=== PATIENT | female | born 1925 | race Caucasian/White ===

== ENCOUNTER 2016-11-19 23:34 | Observation (INO) | payer OTHER ==
[2016-11-20 00:42] LABS: MCH 27.6 pg (25.7-33.7); MCHC 32.6 g/dl (32.0-36.0); MEAN CELL VOLUME 84.6 fl (80-96); MEAN PLT VOLUME 9.8 fl (7.5-11.1); PLATELET COUNT 325 K/MM3 (134-434)
[2016-11-20 01:49] LABS: ACETONE SERUM NEGATIVE (NEGATIVE)
[2016-11-20 01:51] LABS: PLATELET ESTIMATE ADEQUATE (NORMAL); TOTAL CELLS COUNTED 100
[2016-11-20 01:51] LABS: ALBUMIN 3.3 g/dl (3.4-5.0); ANION GAP 11 (8-16); BILIRUBIN,TOTAL 0.6 mg/dL (0.2-1.0); CALCIUM 9.5 mg/dL (8.5-10.1); CO2 25 mmol/L (21-32); CREATININE 1.2 mg/dL (0.55-1.02); GLUCOSE,RANDOM 128 mg/dL (74-106); SGOT/AST 16 U/L (15-37); SGPT/ALT 19 U/L (12-78); TOT PROT 6.5 g/dl (6.4-8.2)
[2016-11-20 01:53] LABS: ALK PHOS 83 U/L (45-117); CPK 45 IU/L (26-192); TROPONIN I < 0.02 ng/ml (0.00-0.05)
[2016-11-20 02:38] LABS: THYROID STIMULATING HORMONE 1.72 uIU/ml (0.358-3.74)
--- NOTE | 2016-11-20 04:24 | PDOC ---
History of Present Illness - General Chief Complaint: Blood Sugar Problem Stated Complaint: LOW BLOOD SUGAR Time Seen by Provider: 11/20/16 00:36 - History of Present Illness Initial Comments: 11/20/16 04:24 89 F with h/o CAD (Stent), DM, HTN, HLD presents to ER with hypoglycemia. Pt lives in [place] where she reportedly had a fingerstick of 32. Pt was given glucagon and had improvement of her sugar to 180. In ER, pt reports that she feels well. She denies F/C. Denies CP/SOB. Denies abdominal pain/N/V. Pt is on insulin but cannot recall her dosage or when she last received it. Past History - Past Medical History Allergies/Adverse Reactions: Allergies Allergy/AdvReac Type Severity Reaction Status Date / Time Sulfa (Sulfonamide Allergy Verified 04/03/15 22:35 Antibiotics) Home Medications: Ambulatory Orders Acetaminophen [Tylenol -] 1,000 mg PO Q12H 11/20/16 Amlodipine Besylate [Norvasc -] 10 mg PO DAILY 11/20/16 Aspirin [Aspirin EC] 81 mg PO DAILY 11/20/16 Cholecalciferol (Vitamin D3) [Vitamin D3] 50,000 cap PO MONTHLY 11/20/16 Clopidogrel Bisulfate [Plavix -] 75 mg PO DAILY 11/20/16 Cyanocobalamin (Vitamin B-12) [Cyanocobalamin Injection] 1,000 mcg IM MONTHLY Docusate Sodium [Colace -] 100 mg PO HS 11/20/16 Insulin (Novolog) [NovoLOG FLEXPEN] 4 units SQ DAILY 11/20/16 Insulin (Novolog) [Novolog Flexpen] 10 units SQ BIDAC 11/20/16 Insulin Glargine,Hum.rec.anlog [Lantus Solostar PEN (NF)] 28 units SQ Q12H 11/20 Lisinopril [Zestril] 40 mg PO DAILY 11/20/16 Metoprolol Tartrate 100 mg PO BID 11/20/16 Multivitamin [One Daily] 1 tablet PO DAILY 11/20/16 Pen Needle, Diabetic, Safety [Novofine Autocover] 1 each MC TID 11/20/16 Polyethylene Glycol 3350 [Miralax (For Daily Use) -] 17 gm PO DAILY 11/20/16 Polyvinyl Alcohol [Artificial Tears] 1 drop OD TID 11/20/16 Simvastatin [Zocor] 10 mg PO HS 11/20/16 Cardiac Disorders: Yes (CAD, stent) CHF: Yes Diabetes: Yes HTN: Yes Hypercholesterolemia: Yes Suicide Attempt (Hx): No - Surgical History Appendectomy: Yes Cardiac Surgery: Yes (cardiac stent) Orthopedic Surgery: Yes (Lt knee replacement) - Psycho/Social/Smoking Cessation Hx Anxiety: No Suicidal Ideation: No Smoking History: Unknown if ever smoked Have you smoked in the past 12 months: No Hx Alcohol Use: No Drug/Substance Use Hx: No Substance Use Type: None Hx Substance Use Treatment: No Review of Systems - Review of Systems Comments:: 11/20/16 04:28 "GENERAL/CONSTITUTIONAL: No fever or chills. No weakness. HEAD, EYES, EARS, NOSE AND THROAT: No change in vision. No ear pain or discharge. No sore throat. CARDIOVASCULAR: No chest pain or shortness of breath. RESPIRATORY: No cough, wheezing, or hemoptysis. GASTROINTESTINAL: No nausea, vomiting, diarrhea or constipation. GENITOURINARY: No dysuria, frequency, or change in urination. MUSCULOSKELETAL: No joint or muscle swelling or pain. No neck or back pain. SKIN: No rash NEUROLOGIC: No headache, vertigo, loss of consciousness, or change in strength/ sensation. ENDOCRINE: No increased thirst. No abnormal weight change. HEMATOLOGIC/LYMPHATIC: No anemia, easy bleeding, or history of blood clots. ALLERGIC/IMMUNOLOGIC: No hives or skin allergy. " *Physical Exam - Vital Signs Last Vital Signs Temp Pulse Resp BP Pulse Ox 97.8 F 40 L 18 120/50 100 11/20/16 03:35 11/20/16 03:35 11/20/16 03:35 11/20/16 03:35 11/20/16 03:35 - Physical Exam Comments: 11/20/16 04:28 "GENERAL: Awake, alert, in no acute distress HEAD: No signs of trauma EYES: PERRLA, EOMI, sclera anicteric, conjunctiva clear ENT: Auricles normal inspection, hearing grossly normal, nares patent, oropharynx clear without exudates. Moist mucosa NECK: Normal ROM, supple, no lymphadenopathy, JVD, or masses LUNGS: Breath sounds equal, clear to auscultation bilaterally. No wheezes, and no crackles HEART: Regular rate and rhythm, normal S1 and S2, no murmurs, rubs or gallops ABDOMEN: + LLQ tenderness with voluntary guarding, normoactive bowel sounds. No guarding, no rebound. No masses EXTREMITIES: Normal range of motion, no edema. No clubbing or cyanosis. No cords, erythema, or tenderness NEUROLOGICAL: Cranial nerves II through XII grossly intact. Normal speech SKIN: Warm, Dry, normal turgor, no rashes or lesions noted. " Heart Score/ECG Review - ECG Impressions Comment:: 11/20/16 04:29 Sinus bradycardia, rate 51. J point elevation in V2, no ST depressions, no TWIs , intervals wnl. ED Treatment Course - LABORATORY CBC & Chemistry Diagram: 11/20/16 00:30 11/20/16 01:08 - ADDITIONAL ORDERS Additional order review: Laboratory Results 11/20/16 11/20/16 11/20/16 03:27 01:08 01:08 INR PTT (Actin FS) Sodium Potassium Chloride Carbon Dioxide Anion Gap BUN Creatinine Creat Clearance w eGFR POC Glucometer [phone] Random Glucose Lactic Acid Calcium Magnesium 2.2 D Total Bilirubin AST ALT Alkaline Phosphatase Creatine Kinase Troponin I Total Protein Albumin Lipase TSH Acetone, Qual Blood Type O NEGATIVE Antibody Screen Negative Spec Expiration Date 11/20/16 11/20/16 11/20/16 01:08 01:08 00:30 INR Cancelled PTT (Actin FS) Cancelled Sodium 136 Potassium 4.4 Chloride 100 Carbon Dioxide 25 Anion Gap 11 BUN 28 H D Creatinine 1.2 H Creat Clearance w eGFR 42.40 POC Glucometer Random Glucose 128 H D Lactic Acid Calcium 9.5 Magnesium Total Bilirubin 0.6 D AST 16 D ALT 19 D Alkaline Phosphatase 83 D Creatine Kinase 45 Troponin I < 0.02 Total Protein 6.5 D Albumin 3.3 L D Lipase 77 TSH 1.72 Acetone, Qual Negative L Blood Type Cancelled Antibody Screen Cancelled Spec Expiration Date Cancelled 11/20/16 11/20/16 11/20/16 00:30 00:30 00:30 INR Cancelled PTT (Actin FS) Cancelled Sodium Cancelled Potassium Cancelled Chloride Cancelled Carbon Dioxide Cancelled Anion Gap Cancelled BUN Cancelled Creatinine Cancelled Creat Clearance w eGFR Cancelled POC Glucometer Random Glucose Cancelled Lactic Acid 1.3 Calcium Cancelled Magnesium Total Bilirubin Cancelled AST Cancelled ALT Cancelled Alkaline Phosphatase Cancelled Creatine Kinase Troponin I Total Protein Cancelled Albumin Cancelled Lipase Cancelled TSH Cancelled Acetone, Qual Cancelled Blood Type Antibody Screen Spec Expiration Date 11/20/16 11/19/16 00:30 23:52 INR PTT (Actin FS) Sodium Potassium Chloride Carbon Dioxide Anion Gap BUN Creatinine Creat Clearance w eGFR POC Glucometer [id number] Random Glucose Lactic Acid Calcium Magnesium Cancelled Total Bilirubin AST ALT Alkaline Phosphatase Creatine Kinase Cancelled Troponin I Cancelled Total Protein Albumin Lipase TSH Acetone, Qual Blood Type Antibody Screen Spec Expiration Date 11/20/16 11/20/16 11/19/16 03:27 00:30 23:52 RBC 5.04 D MCV 84.6 MCHC 32.6 RDW 14.0 MPV 9.8 Neutrophils % Y Lymphocytes % Y POC Glucometer [phone] - RADIOLOGY Radiology Studies Ordered: Category Date Time Status ABDOMEN & PELVIS CT WITH CONTR [CT] Stat CT Scan 11/20/16 00:48 Ordered CHEST X-RAY PORTABLE* [RAD] Stat Radiology 11/20/16 00:48 Ordered Medical Decision Making - Medical Decision Making 11/20/16 04:29 89 F with hypoglycemia in [place], now resolved. Low sugar may be 2/2 poor PO. Possible medication error, though pt lives in nursing facility. Also consider infectious process. Pt's exam notable for LLQ tenderness, concerning for acute intraabdominal process - diverticulitis vs colitis. Pt's vitals notable for bradycardia with normal BP. Possibly 2/2 beta blockade as pt is on metoprolol. Pt is mentating appropriately and maintaining BP so will defer treatment at this time. - Labs, UA, CXR - CTAP - atropine or glucagon PRN for bardycardia - Admit 11/20/16 06:08 CTAP without acute pathology. UA and CXR with no infectious processes Given abdominal pain and WBC 25, will send stool cultures to r/o C diff. Admit to obs. *DC/Admit/Observation/Transfer Diagnosis at time of Disposition: Abdominal pain - Discharge Dispostion Admit: Yes - Attestations Physician Attestion: 11/20/16 06:09 I, Dr. Toño Archuleta MD, attest that this document has been prepared under my direction and personally reviewed by me in its entirety. I further attest, that it accurately reflects all work, treatment, procedures and medical decision -making performed by me.
[2016-11-20 05:41] LABS: URINE APPEARANCE SLCLOUDY; URINE BILIRUBIN NEGATIVE (NEGATIVE); URINE BLOOD NEGATIVE (NEGATIVE); URINE COLOR YELLOW; URINE GLUCOSE (UA) NEGATIVE (NEGATIVE); URINE KETONE TRACE (NEGATIVE); URINE LEUK ESTERASE NEGATIVE (NEGATIVE); URINE NITRITE NEGATIVE (NEGATIVE); URINE UROBILINOGEN NEGATIVE mg/dL (0.2-1.0)
[2016-11-20 05:43] LABS: URINE PROTEIN 2+ (NEGATIVE)
[2016-11-20 05:46] LABS: URINE HYALINE CAST 9 /lpf; URINE MUCUS RARE; URINE RBC 2 /hpf (0-3); URINE WBC 3 /hpf (3-5)
--- NOTE | 2016-11-20 06:54 | HP ---
PCP: Gianni Nogueira CHIEF COMPLAINT: Hypoglycemia HISTORY OF PRESENT ILLNESS: The patient is an 89 year old woman who was found unresponsive with a fingerstick of 32 at [facility] [address] this evening. She was treated with dextrose with no improvement and so she was sent to the ER for evaluation and treatment. EMS administered Glucagon and her sugar improved to 180. She is unable to provide a history secondary to dementia. She denies pain. PAST MEDICAL HISTORY CAD Type 2 diabetes mellitus Hypertension Hyperlipidemia CKD Osteoarthritis Macular degeneration Dementia PAST SURGICAL HISTORY Coronary stent Left hip ORIF Left total knee replacement SOCIAL HISTORY Smoking: Denies Alcohol: Denies Drugs: Denies Recent Travel: No FAMILY HISTORY Unobtainable ALLERGIES Sulfa (Sulfonamide Antibiotics) Allergy (Verified 04/03/15 22:35) HOME MEDICATIONS 3 Medication Instructions Recorded Acetaminophen [Tylenol -] 1,000 mg PO Q12H 11/20/16 Amlodipine Besylate [Norvasc -] 10 mg PO DAILY 11/20/16 Aspirin [Aspirin EC] 81 mg PO DAILY 11/20/16 Cholecalciferol (Vitamin D3) 50,000 cap PO MONTHLY 11/20/16 [Vitamin D3] Clopidogrel Bisulfate [Plavix -] 75 mg PO DAILY 11/20/16 Cyanocobalamin (Vitamin B-12) 1,000 mcg IM MONTHLY 11/20/16 [Cyanocobalamin Injection] Docusate Sodium [Colace -] 100 mg PO HS 11/20/16 Insulin (Novolog) [NovoLOG FLEXPEN] 4 units SQ DAILY 11/20/16 Insulin (Novolog) [Novolog Flexpen] 10 units SQ BIDAC 11/20/16 Insulin Glargine,Hum.rec.anlog 28 units SQ Q12H 11/20/16 [Lantus Solostar PEN (NF)] Lisinopril [Zestril] 40 mg PO DAILY 11/20/16 Metoprolol Tartrate 100 mg PO BID 11/20/16 Multivitamin [One Daily] 1 tablet PO DAILY 11/20/16 Pen Needle, Diabetic, Safety 1 each MC TID 11/20/16 [Novofine Autocover] Polyethylene Glycol 3350 [Miralax 17 gm PO DAILY 11/20/16 (For Daily Use) -] Polyvinyl Alcohol [Artificial 1 drop OD TID 11/20/16 Tears] Simvastatin [Zocor] 10 mg PO HS 11/20/16 REVIEW OF SYSTEMS Unobtainable PHYSICAL EXAMINATION Vital Signs - 24 hr 11/19/16 11/20/16 11/20/16 23:44 00:33 03:35 Temperature 97.4 F L 97.4 F L 97.8 F Pulse Rate [ 51 L 42 L 40 L Apical] Respiratory 16 16 18 Rate Blood Pressure 111/62 123/56 120/50 [Right Arm] O2 Sat by Pulse 100 100 100 Oximetry (%) 11/20/16 05:23 Temperature 97.2 F L Pulse Rate [ 50 L Apical] Respiratory 12 Rate Blood Pressure 110/62 [Right Arm] O2 Sat by Pulse 98 Oximetry (%) GENERAL: Awake, alert, confused, in no acute distress. HEAD: Normal with no signs of trauma. EYES: Pupils equal, round and reactive to light, extraocular movements intact, sclerae anicteric, conjunctivae clear. EARS, NOSE, THROAT: Ears normal, nares patent, oropharynx clear without exudates. Moist mucous membranes. NECK: Normal range of motion, supple without lymphadenopathy, JVD, or masses. LUNGS: Breath sounds equal, clear to auscultation bilaterally. No wheezes, and no crackles. No accessory muscle use. HEART: Bradycardic, normal S1 and S2 without murmur, rub or gallop. ABDOMEN: Soft, non-tender, non-distended, normoactive bowel sounds, no guarding , no rebound, no masses. No hepatomegaly or splenomegaly. MUSCULOSKELETAL: Normal range of motion at all joints. No bony deformities or tenderness. No CVA tenderness. UPPER EXTREMITIES: 2+ pulses, warm, well-perfused. No cyanosis. No clubbing. No peripheral edema. LOWER EXTREMITIES: 2+ pulses, warm, well-perfused. No calf tenderness. No peripheral edema. NEUROLOGICAL: Confused, cooperative. Normal speech. Strength intact. Sensation intact. Gait not observed. SKIN: Warm, dry, intact. Laboratory Results - last 24 hr 11/19/16 11/20/16 11/20/16 23:52 00:30 00:30 WBC 25.0 H D RBC 5.04 D Hgb 13.9 D Hct 42.7 D MCV 84.6 MCH 27.6 MCHC 32.6 RDW 14.0 Plt Count 325 D MPV 9.8 Total Counted 100 Neutrophils % Y Neutrophils % (Manual) 88 H Band Neuts % (Manual) 2 Lymphocytes % Y Lymphocytes % (Manual) 9 Eosinophils % (Manual) 1 Platelet Estimate Adequate INR PTT (Actin FS) Sodium Potassium Chloride Carbon Dioxide Anion Gap BUN Creatinine Creat Clearance w eGFR POC Glucometer [phone] Random Glucose Lactic Acid Calcium Magnesium Cancelled Total Bilirubin AST ALT Alkaline Phosphatase Creatine Kinase Cancelled Troponin I Cancelled Total Protein Albumin Lipase TSH Urine Color Urine Appearance Urine pH Urine Protein Urine Glucose (UA) Urine Ketones Urine Blood Urine Nitrite Urine Bilirubin Urine Urobilinogen Ur Leukocyte Esterase Urine RBC Urine WBC Ur Epithelial Cells Hyaline Casts Urine Mucus Acetone, Qual Blood Type Antibody Screen Spec Expiration Date 11/20/16 11/20/16 11/20/16 00:30 00:30 00:30 WBC RBC Hgb Hct MCV MCH MCHC RDW Plt Count MPV Total Counted Neutrophils % Neutrophils % (Manual) Band Neuts % (Manual) Lymphocytes % Lymphocytes % (Manual) Eosinophils % (Manual) Platelet Estimate INR Cancelled PTT (Actin FS) Cancelled Sodium Cancelled Potassium Cancelled Chloride Cancelled Carbon Dioxide Cancelled Anion Gap Cancelled BUN Cancelled Creatinine Cancelled Creat Clearance w eGFR Cancelled POC Glucometer Random Glucose Cancelled Lactic Acid 1.3 Calcium Cancelled Magnesium Total Bilirubin Cancelled AST Cancelled ALT Cancelled Alkaline Phosphatase Cancelled Creatine Kinase Troponin I Total Protein Cancelled Albumin Cancelled Lipase Cancelled TSH Cancelled Urine Color Urine Appearance Urine pH Urine Protein Urine Glucose (UA) Urine Ketones Urine Blood Urine Nitrite Urine Bilirubin Urine Urobilinogen Ur Leukocyte Esterase Urine RBC Urine WBC Ur Epithelial Cells Hyaline Casts Urine Mucus Acetone, Qual Cancelled Blood Type Antibody Screen Spec Expiration Date 11/20/16 11/20/16 11/20/16 00:30 01:08 01:08 WBC RBC Hgb Hct MCV MCH MCHC RDW Plt Count MPV Total Counted Neutrophils % Neutrophils % (Manual) Band Neuts % (Manual) Lymphocytes % Lymphocytes % (Manual) Eosinophils % (Manual) Platelet Estimate INR Cancelled PTT (Actin FS) Cancelled Sodium 136 Potassium 4.4 Chloride 100 Carbon Dioxide 25 Anion Gap 11 BUN 28 H D Creatinine 1.2 H Creat Clearance w eGFR 42.40 POC Glucometer Random Glucose 128 H D Lactic Acid Calcium 9.5 Magnesium Total Bilirubin 0.6 D AST 16 D ALT 19 D Alkaline Phosphatase 83 D Creatine Kinase 45 Troponin I < 0.02 Total Protein 6.5 D Albumin 3.3 L D Lipase 77 TSH 1.72 Urine Color Urine Appearance Urine pH Urine Protein Urine Glucose (UA) Urine Ketones Urine Blood Urine Nitrite Urine Bilirubin Urine Urobilinogen Ur Leukocyte Esterase Urine RBC Urine WBC Ur Epithelial Cells Hyaline Casts Urine Mucus Acetone, Qual Negative L Blood Type Cancelled Antibody Screen Cancelled Spec Expiration Date Cancelled 11/20/16 11/20/16 11/20/16 01:08 01:08 03:27 WBC RBC Hgb Hct MCV MCH MCHC RDW Plt Count MPV Total Counted Neutrophils % Neutrophils % (Manual) Band Neuts % (Manual) Lymphocytes % Lymphocytes % (Manual) Eosinophils % (Manual) Platelet Estimate INR PTT (Actin FS) Sodium Potassium Chloride Carbon Dioxide Anion Gap BUN Creatinine Creat Clearance w eGFR POC Glucometer [phone] Random Glucose Lactic Acid Calcium Magnesium 2.2 D Total Bilirubin AST ALT Alkaline Phosphatase Creatine Kinase Troponin I Total Protein Albumin Lipase TSH Urine Color Urine Appearance Urine pH Urine Protein Urine Glucose (UA) Urine Ketones Urine Blood Urine Nitrite Urine Bilirubin Urine Urobilinogen Ur Leukocyte Esterase Urine RBC Urine WBC Ur Epithelial Cells Hyaline Casts Urine Mucus Acetone, Qual Blood Type O NEGATIVE Antibody Screen Negative Spec Expiration Date 11/20/16 05:13 WBC RBC Hgb Hct MCV MCH MCHC RDW Plt Count MPV Total Counted Neutrophils % Neutrophils % (Manual) Band Neuts % (Manual) Lymphocytes % Lymphocytes % (Manual) Eosinophils % (Manual) Platelet Estimate INR PTT (Actin FS) Sodium Potassium Chloride Carbon Dioxide Anion Gap BUN Creatinine Creat Clearance w eGFR POC Glucometer Random Glucose Lactic Acid Calcium Magnesium Total Bilirubin AST ALT Alkaline Phosphatase Creatine Kinase Troponin I Total Protein Albumin Lipase TSH Urine Color Yellow Urine Appearance Slcloudy Urine pH 5.0 Urine Protein 2+ H Urine Glucose (UA) Negative Urine Ketones Trace H Urine Blood Negative Urine Nitrite Negative Urine Bilirubin Negative Urine Urobilinogen Negative Ur Leukocyte Esterase Negative Urine RBC 2 Urine WBC 3 Ur Epithelial Cells Rare Hyaline Casts 9 Urine Mucus Rare Acetone, Qual Blood Type Antibody Screen Spec Expiration Date ASSESSMENT/PLAN: This is an 89 year old woman with a history of CAD, cardiac stent, type 2 DM, HTN, hyperlipidemia, CKD, OA, macular degeneration, dementia who was sent to the ER from [facility] after being found unresponsive with fingerstick 32. 1. Acute metabolic encephalopathy secondary to hypoglycemia - Improved with dextrose and Glucagon - Hold Lantus, Novolog - Monitor fingersticks 2. Stage 3 CKD - Stable 3. Sinus bradycardia - Appears to be asymptomatic - Hold Lopressor - Observe on telemetry 4. HTN - Continue Norvasc, Lisinopril - Hold Lopressor secondary to bradycardia 5. Hyperlipidemia - Continue Zocor 6. CAD, history of stent - Continue aspirin, Plavix, Zocor 7. Dementia 8. Leukocytosis - Chronic (25.0 today, has been 10.8-22.2 in past) - No evidence of infection 9. Type 2 DM - Hold insulin secondary to hypoglycemia - Monitor finersticks
[2016-11-20 09:32] LABS: BASOPHIL 0.4 % (0-2.0); EOSINOPHIL 0.5 % (0-4.5); MCH 27.3 pg (25.7-33.7); MCHC 32.1 g/dl (32.0-36.0); MEAN CELL VOLUME 85.1 fl (80-96); MEAN PLT VOLUME 9.5 fl (7.5-11.1); NEUTROPHILS 87.9 % (42.8-82.8); PLATELET COUNT 291 K/MM3 (134-434); RDW 14.3 % (11.6-15.6); WHITE BLOOD COUNT 20.8 K/mm3 (4.0-10.0)
--- NOTE | 2016-11-20 09:44 | EKG ---
Test Reason : Blood Pressure : / mmHG Vent. Rate : 051 BPM Atrial Rate : 051 BPM P-R Int : 166 ms QRS Dur : 086 ms QT Int : 520 ms P-R-T Axes : 037 -24 038 degrees QTc Int : 479 ms SINUS BRADYCARDIA MODERATE VOLTAGE CRITERIA FOR LVH, MAY BE NORMAL VARIANT CANNOT RULE OUT SEPTAL INFARCT , AGE UNDETERMINED POOR R WAVE PROGRESSION ABNORMAL ECG Confirmed by MD NILA, JUSTICE (2012) on 11/20/2016 9:44:04 AM Referred By: Confirmed By:JUSTICE DOTSON MD
[2016-11-20] MEDS ORDERED: LISINOPRIL 20 MG TABLET (FP) PO SCH (10:00)
[2016-11-20] MEDS: ACETAMINOPHEN 500 MG TABLET (FP) PO SCH ×2 (10:14→21:30)
[2016-11-20 10:15] LABS: ALBUMIN 3.6 g/dl (3.4-5.0); ALK PHOS 93 U/L (45-117); ANION GAP 13 (8-16); BILIRUBIN,TOTAL 0.8 mg/dL (0.2-1.0); CALCIUM 9.9 mg/dL (8.5-10.1); CO2 24 mmol/L (21-32); CREATININE 1.1 mg/dL (0.55-1.02); GLUCOSE,RANDOM 202 mg/dL (74-106); SGOT/AST 18 U/L (15-37); SGPT/ALT 22 U/L (12-78); TOT PROT 6.9 g/dl (6.4-8.2)
[2016-11-20] MEDS: CLOPIDOGREL BISULFATE 75 MG TABLET (FP) PO SCH (10:15)
[2016-11-20] MEDS: MULTIVITAMINS (DAILY MVI) TABLET (FP) PO SCH (10:15)
[2016-11-20] MEDS: amLODIPine BESYLATE 10 MG TABLET (FP) PO SCH (10:15)
[2016-11-20] MEDS: ASPIRIN COATED 81 MG TABLET.EC PO SCH (10:15)
[2016-11-20] MEDS: POLYETHYLENE GLYCOL 3350 119 GM BTL PO SCH (10:16)
--- NOTE | 2016-11-20 11:13 | PN ---
Physical Exam: SUBJECTIVE: Patient seen and examined at the bedside. "I still feel weak, but feel better". Denies dizziness, chest pain or shortness of breath. OBJECTIVE: Called nursing supervisr @ [facility] for current MOLST for, currently only a 2015 DNR non hospital form in chart: fax no. 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 EYES: PERRL, extraocular movements intact, sclera anicteric, conjunctiva clear. No ptosis. ENT: Ears normal, nares patent, oropharynx clear without exudates, moist mucous membranes. NECK: Trachea midline, full range of motion, supple. LUNGS: Breath sounds equal, clear to auscultation bilaterally, no wheezes, no crackles, no accessory muscle use. HEART: EKG sinus cha, NSR 80s on cardiac monito ABDOMEN: Soft, nontender, nondistended, normoactive bowel sounds, no guarding, no rebound, no hepatosplenomegaly, no masses. EXTREMITIES: no edema. NEUROLOGICAL: Normal speech, gait not observed. PSYCH: Normal mood, normal affect. SKIN: Warm, dry, normal turgor, no rashes or lesions noted Laboratory Results - last 24 hr 11/20/16 11/20/16 11/20/16 08:50 08:50 08:50 WBC 20.8 H RBC 5.18 Hgb 14.2 Hct 44.1 MCV 85.1 MCH 27.3 MCHC 32.1 RDW 14.3 Plt Count 291 MPV 9.5 Neutrophils % 87.9 H Lymphocytes % 5.8 L D Monocytes % 5.4 Eosinophils % 0.5 Basophils % 0.4 Sodium 134 L Potassium 5.9 H D Cancelled Chloride 97 L Carbon Dioxide 24 Anion Gap 13 BUN 29 H Creatinine 1.1 H Creat Clearance w eGFR 46.88 Random Glucose 202 H D Calcium 9.9 Total Bilirubin 0.8 D AST 18 ALT 22 Alkaline Phosphatase 93 Total Protein 6.9 Albumin 3.6 Active Medications Generic Name Dose Route Start Last Admin Trade Name Dhiraj PRN Reason Stop Dose Admin Acetaminophen 1,000 mg 11/20/16 09:00 11/20/16 10:14 Tylenol - PO 1,000 mg Q12H SILVA Administration Amlodipine Besylate 10 mg 11/20/16 10:00 11/20/16 10:15 Norvasc - PO 10 mg DAILY SILVA Administration Artificial Tears 1 drop 11/20/16 14:00 Artificial Tears OD TID SILVA Aspirin 81 mg 11/20/16 10:00 11/20/16 10:15 Ecotrin - PO 81 mg DAILY SILVA Administration Atorvastatin Calcium 10 mg 11/20/16 22:00 Lipitor - PO HS SILVA Clopidogrel Bisulfate 75 mg 11/20/16 10:00 11/20/16 10:15 Plavix - PO 75 mg DAILY SILVA Administration Docusate Sodium 100 mg 11/20/16 22:00 Colace - PO HS SILVA Insulin Aspart 1 vial 11/20/16 16:30 Novolog Vial Sliding Scale - SQ ACHS SILVA Protocol Lisinopril 40 mg 11/20/16 10:00 11/20/16 10:15 Prinivil PO 40 mg DAILY SILVA Administration Multivitamins/Minerals/Vitamin C 1 tab 11/20/16 10:00 11/20/16 10:15 Tab-A-Vit - PO 1 tab DAILY SILVA Administration Polyethylene Glycol 17 gm 11/20/16 10:00 11/20/16 10:16 Miralax (For Daily Use) - PO Not Given DAILY SILVA ASSESSMENT/PLAN: 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 She presented to the ED on 11/20/2016 after reportedly being bound unresponsive with a BGM of 32 at [facility]. Patient was given Glucagon and had improvement of her sugar to 180. On exam, patient reports that she still feels weak but overall better. She denies dizziness, nausea, vomiting, chest pain or abdominal pain. Neuro: Metabolic encephalopathy - improving A/P: AMS likely secondary to blood sugars of 37 at residential Blood sugars improved with dextrose and glucagon BGMs are now elevated, Started on Novolog sliding scale, will start Levemir at 10 units and monitor Monitor BGMs Electrolyte Imbalance: Also noted to have hyponatremia, will give gentle hydration of 1 liters of saline @50cc/hr Hyperkalemia @ 5.9, will repeat K levels to confirm Hematology: Leukocytosis - chronic A/P:Normal lactic acid, no signs of infection, afebrile Cardiology: Hypertension A/P: On Norvasc and Lisinopril Holding Lopressor due to bradycardia on admission Plan to resume Metoprolol in a.m. Repeat EKG Bradycardia on admission, now in NSR in 70s A/P: Monitor on tele Repeat EKG Hyperlipidemia A/P: continue home dose of Lipitor CAD A/P: on ASA 81mg daily F.E.N. Fluids: Normal saline @ 50cc x 1 bag Electrolyges: Hyperk, repeat K levels Nutrition: diabetic diet Prophylaxis: SCDs, Physical therapy Disposition. OBS. Has DNR non hospital form in chart from 2014. [facility] faxed over old DNR paper work dated 2012, no MOLST on file. Will confirm code status tomorrow with HCP at [facility] ([facility], [place]). Visit type - Emergency Visit Emergency Visit: Yes ED Registration Date: 11/20/16 Care time: The patient presented to the Emergency Department on the above date and was hospitalized for further evaluation of their emergent condition. - New Patient This patient is new to me today: Yes Date on this admission: 11/20/16 - Critical Care Critical Care patient: No - Discharge Referral Referred to [facility] Med [facility] No
[2016-11-20 11:50] VITALS: BMI 29.8
[2016-11-20] MEDS: ARTIFICIAL TEARS (POLYVINYL ALCOHOL 1.4%) OPTH DROPS OD SCH ×2 (14:06→22:01)
[2016-11-20] MEDS ORDERED: SODIUM CHLORIDE 1,000 ML IV SCH (16:00)
[2016-11-20] MEDS ORDERED: INSULIN SLIDING SCALE (NOVOLOG) 1 VIAL SQ SCH (16:30)
[2016-11-20] MEDS ORDERED: INSULIN (NOVOLOG) ASPART 100 UNITS/ML 10ML VIAL SQ ONE (16:31)
[2016-11-20] MEDS ORDERED: SODIUM POLYSTYRENE SULFONATE 15 GM/60 ML BOTTLE PO ONE (17:12)
[2016-11-20] MEDS ORDERED: ATORVASTATIN CA 10 MG TABLET (FP) PO SCH (22:00)
[2016-11-20] MEDS ORDERED: INSULIN DETEMIR 100 UNITS/ML MDV SQ SCH ×2 (22:00)
[2016-11-20] MEDS ORDERED: DOCUSATE SODIUM 100 MG CAPSULE (FP) PO SCH (22:00)
[2016-11-20] MEDS: INSULIN SLIDING SCALE (NOVOLOG) 1 VIAL SQ SCH (22:11)
[2016-11-21] MEDS: ARTIFICIAL TEARS (POLYVINYL ALCOHOL 1.4%) OPTH DROPS OD SCH (06:14)
[2016-11-21] MEDS: INSULIN SLIDING SCALE (NOVOLOG) 1 VIAL SQ SCH ×2 (06:15→11:40)
[2016-11-21 06:32] VITALS: BP 142/58
[2016-11-21 07:07] LABS: BASOPHIL 0.5 % (0-2.0); EOSINOPHIL 2.9 % (0-4.5); MCH 27.6 pg (25.7-33.7); MCHC 32.3 g/dl (32.0-36.0); MEAN CELL VOLUME 85.4 fl (80-96); MEAN PLT VOLUME 9.9 fl (7.5-11.1); NEUTROPHILS 68.3 % (42.8-82.8); PLATELET COUNT 242 K/MM3 (134-434); RDW 14.2 % (11.6-15.6); WHITE BLOOD COUNT 11.7 K/mm3 (4.0-10.0)
[2016-11-21 07:40] LABS: ANION GAP 11 (8-16); CO2 24 mmol/L (21-32); CREATININE 1.3 mg/dL (0.55-1.02); GLUCOSE,RANDOM 131 mg/dL (74-106)
--- NOTE | 2016-11-21 07:45 | PN ---
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 EYES: PERRL, extraocular movements intact, sclera anicteric, conjunctiva clear. No ptosis. ENT: Ears normal, nares patent, oropharynx clear without exudates, moist mucous membranes. NECK: Trachea midline, full range of motion, supple. LUNGS: Breath sounds equal, clear to auscultation bilaterally, no wheezes, no crackles, no accessory muscle use. HEART: NSR 80s on cardiac monito ABDOMEN: Soft, nontender, nondistended, normoactive bowel sounds, no guarding, no rebound, no hepatosplenomegaly, no masses. EXTREMITIES: no edema. NEUROLOGICAL: Normal speech, gait not observed. PSYCH: Normal mood, normal affect. SKIN: Warm, dry, normal turgor, no rashes or lesions noted Laboratory Results - last 24 hr 11/20/16 11/20/16 11/20/16 08:50 08:50 08:50 WBC 20.8 H RBC 5.18 Hgb 14.2 Hct 44.1 MCV 85.1 MCH 27.3 MCHC 32.1 RDW 14.3 Plt Count 291 MPV 9.5 Neutrophils % 87.9 H Lymphocytes % 5.8 L D Monocytes % 5.4 Eosinophils % 0.5 Basophils % 0.4 Sodium 134 L Potassium 5.9 H D Cancelled Chloride 97 L Carbon Dioxide 24 Anion Gap 13 BUN 29 H Creatinine 1.1 H Creat Clearance w eGFR 46.88 POC Glucometer Random Glucose 202 H D Calcium 9.9 Total Bilirubin 0.8 D AST 18 ALT 22 Alkaline Phosphatase 93 Total Protein 6.9 Albumin 3.6 11/20/16 11/20/16 11/20/16 12:20 16:10 20:10 WBC RBC Hgb Hct MCV MCH MCHC RDW Plt Count MPV Neutrophils % Lymphocytes % Monocytes % Eosinophils % Basophils % Sodium Potassium 5.6 H 4.6 Chloride Carbon Dioxide Anion Gap BUN Creatinine Creat Clearance w eGFR POC Glucometer 342 Random Glucose Calcium Total Bilirubin AST ALT Alkaline Phosphatase Total Protein Albumin 11/20/16 11/21/16 11/21/16 22:05 05:31 05:35 WBC 11.7 H D RBC 4.32 Hgb 11.9 D Hct 36.8 D MCV 85.4 MCH 27.6 MCHC 32.3 RDW 14.2 Plt Count 242 MPV 9.9 Neutrophils % 68.3 D Lymphocytes % 16.9 D Monocytes % 11.4 H D Eosinophils % 2.9 D Basophils % 0.5 Sodium Potassium Chloride Carbon Dioxide Anion Gap BUN Creatinine Creat Clearance w eGFR POC Glucometer 154 201 Random Glucose Calcium Total Bilirubin AST ALT Alkaline Phosphatase Total Protein Albumin 11/21/16 05:35 WBC RBC Hgb Hct MCV MCH MCHC RDW Plt Count MPV Neutrophils % Lymphocytes % Monocytes % Eosinophils % Basophils % Sodium 136 Potassium 4.2 Chloride 101 Carbon Dioxide 24 Anion Gap 11 BUN 36 H D Creatinine 1.3 H Creat Clearance w eGFR POC Glucometer Random Glucose 131 H D Calcium Total Bilirubin AST ALT Alkaline Phosphatase Total Protein Albumin Active Medications Generic Name Dose Route Start Last Admin Trade Name Davidq PRN Reason Stop Dose Admin Acetaminophen 1,000 mg 11/20/16 09:00 11/20/16 21:30 Tylenol - PO 1,000 mg Q12H SILVA Administration Amlodipine Besylate 10 mg 11/20/16 10:00 11/20/16 10:15 Norvasc - PO 10 mg DAILY SILVA Administration Artificial Tears 1 drop 11/20/16 14:00 11/21/16 06:14 Artificial Tears OD 1 drop TID SILVA Administration Aspirin 81 mg 11/20/16 10:00 11/20/16 10:15 Ecotrin - PO 81 mg DAILY SILVA Administration Clopidogrel Bisulfate 75 mg 11/20/16 10:00 11/20/16 10:15 Plavix - PO 75 mg DAILY SILVA Administration Docusate Sodium 100 mg 11/20/16 22:00 11/20/16 22:02 Colace - PO 100 mg HS SILVA Administration Sodium Chloride 1,000 mls @ 50 mls/hr 11/20/16 16:00 11/20/16 16:35 Normal Saline - IV 11/21/16 15:51 50 mls/hr ASDIR SILVA Administration Insulin Aspart 1 vial 11/20/16 16:34 11/21/16 06:15 Novolog Vial Sliding Scale - SQ 6 units ACHS SILVA Administration Protocol Insulin Detemir 15 units 11/20/16 22:00 11/20/16 22:19 Levemir Vial SQ 15 units HS SILVA Administration Multivitamins/Minerals/Vitamin C 1 tab 11/20/16 10:00 11/20/16 10:15 Tab-A-Vit - PO 1 tab DAILY SILVA Administration Non-Formulary Medication 100 mg 11/21/16 10:00 Metoprolol Tartrate [Metoprolol Tartrate] PO BID SILVA Polyethylene Glycol 17 gm 11/20/16 10:00 11/20/16 10:16 Miralax (For Daily Use) - PO Not Given DAILY SILVA ASSESSMENT/PLAN: 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 She presented to the ED on 11/20/2016 after reportedly being bound unresponsive with a BGM of 32 at [facility]. Patient was given Glucagon and had improvement of her sugar to 180. On exam, patient reports that she still feels weak but overall better. She denies dizziness, nausea, vomiting, chest pain or abdominal pain. Neuro: Metabolic encephalopathy - resolved A/P: AMS likely secondary to blood sugars of 37 at longterm Blood sugars improved with dextrose and glucagon Started on Novolog sliding scale as noted above, Levemir at 15 units and monitor Monitor BGMs Endocrine: Diabetes - chronic A/P: Novolog sliding scale, Levemir 15 units at HS Titrate Levemir Electrolyte Imbalance: hypokalemia - resolved Hematology: Leukocytosis - chronic A/P:Normal lactic acid, no signs of infection, afebrile Cardiology: Hypertension - chronic A/P: On Norvasc, metoprolol and Lisinopril continue Metoprolol and Norvasc, hold Lisinopril secondary to GABE NSR in 70s and 80s Bradycardia on admission, now in NSR in 70s A/P: monitor at [facility] Hyperlipidemia - chronic A/P: On Lipitor, hold until creatinine is at 1.0 (her baseline) CAD - chronic A/P: on ASA 81mg daily Disposition. Discharge back to [facility]. Visit type - Emergency Visit Emergency Visit: Yes ED Registration Date: 11/20/16 Care time: The patient presented to the Emergency Department on the above date and was hospitalized for further evaluation of their emergent condition. - New Patient This patient is new to me today: No - Critical Care Critical Care patient: No - Discharge Referral Referred to [facility] No
[2016-11-21 09:14] LABS: CALCIUM 8.3 mg/dL (8.5-10.1)
--- NOTE | 2016-11-21 09:27 | DS ---
Physical Exam: SUBJECTIVE: Patient seen and examined OBJECTIVE: Creatinine 1.3, hold lisinopril and statin Resume Lisinopril and Statin once creatinine is 1.0 NSR on cardiac technologist Restart Metoprolol 100 BID, monitor BP Levemir 15units @ bedtime, adjust slowly based on glucs Sliding scale adjusted for tighter control as follows: Blood sugar Novolog dose 101-150 0 units 151-200 4 units 201-250 6 units 251-300 8 units 301-350 10 units 351-400 12 units >400 14 units Levemir 15 units @ HS, slowly titrate Vital Signs Period Temp Pulse Resp BP Sys/Araiza Pulse Ox Last 24 Hr 97.8 F-98.8 F 63-79 18-18 131-159/54-90 98-100 PHYSICAL EXAM GENERAL: The patient is awake, alert, and fully oriented, in no acute distress - has history of dementia HEAD: Normal with no signs of trauma. EYES: PERRL, extraocular movements intact, sclera anicteric, conjunctiva clear. No ptosis. ENT: Ears normal, nares patent, oropharynx clear without exudates, moist mucous membranes. NECK: Trachea midline, full range of motion, supple. LUNGS: Breath sounds equal, clear to auscultation bilaterally, no wheezes, no crackles, no accessory muscle use. HEART: EKG sinus cha, NSR 80s on cardiac monito ABDOMEN: Soft, nontender, nondistended, normoactive bowel sounds, no guarding, no rebound, no hepatosplenomegaly, no masses. EXTREMITIES: no edema. NEUROLOGICAL: Normal speech, gait not observed. PSYCH: Normal mood, normal affect. SKIN: Warm, dry, normal turgor, no rashes or lesions noted LABS Laboratory Results - last 24 hr 11/20/16 11/20/16 11/20/16 08:50 08:50 08:50 WBC 20.8 H RBC 5.18 Hgb 14.2 Hct 44.1 MCV 85.1 MCH 27.3 MCHC 32.1 RDW 14.3 Plt Count 291 MPV 9.5 Neutrophils % 87.9 H Lymphocytes % 5.8 L D Monocytes % 5.4 Eosinophils % 0.5 Basophils % 0.4 Sodium 134 L Potassium 5.9 H D Cancelled Chloride 97 L Carbon Dioxide 24 Anion Gap 13 BUN 29 H Creatinine 1.1 H Creat Clearance w eGFR 46.88 POC Glucometer Random Glucose 202 H D Calcium 9.9 Total Bilirubin 0.8 D AST 18 ALT 22 Alkaline Phosphatase 93 Total Protein 6.9 Albumin 3.6 11/20/16 11/20/16 11/20/16 12:20 16:10 16:20 WBC RBC Hgb Hct MCV MCH MCHC RDW Plt Count MPV Neutrophils % Lymphocytes % Monocytes % Eosinophils % Basophils % Sodium Potassium 5.6 H Chloride Carbon Dioxide Anion Gap BUN Creatinine Creat Clearance w eGFR POC Glucometer 342 447 Random Glucose Calcium Total Bilirubin AST ALT Alkaline Phosphatase Total Protein Albumin 11/20/16 11/20/16 11/21/16 20:10 22:05 05:31 WBC RBC Hgb Hct MCV MCH MCHC RDW Plt Count MPV Neutrophils % Lymphocytes % Monocytes % Eosinophils % Basophils % Sodium Potassium 4.6 Chloride Carbon Dioxide Anion Gap BUN Creatinine Creat Clearance w eGFR POC Glucometer 154 201 Random Glucose Calcium Total Bilirubin AST ALT Alkaline Phosphatase Total Protein Albumin 11/21/16 11/21/16 05:35 05:35 WBC 11.7 H D RBC 4.32 Hgb 11.9 D Hct 36.8 D MCV 85.4 MCH 27.6 MCHC 32.3 RDW 14.2 Plt Count 242 MPV 9.9 Neutrophils % 68.3 D Lymphocytes % 16.9 D Monocytes % 11.4 H D Eosinophils % 2.9 D Basophils % 0.5 Sodium 136 Potassium 4.2 Chloride 101 Carbon Dioxide 24 Anion Gap 11 BUN 36 H D Creatinine 1.3 H Creat Clearance w eGFR POC Glucometer Random Glucose 131 H D Calcium 8.3 L Total Bilirubin AST ALT Alkaline Phosphatase Total Protein Albumin HOSPITAL COURSE: Date of Admission:11/20/16 Date of Discharge: 11/21/16 ASSESSMENT/PLAN: 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 She presented to the ED on 11/20/2016 after reportedly being bound unresponsive with a BGM of 32 at [facility]. Patient was given Glucagon and had improvement of her sugar to 180. On exam, patient reports that she still feels weak but overall better. She denies dizziness, nausea, vomiting, chest pain or abdominal pain. Neuro: Metabolic encephalopathy - resolved A/P: AMS likely secondary to blood sugars of 37 at [facility] Blood sugars improved with dextrose and glucagon Started on Novolog sliding scale as noted above, Levemir at 15 units and monitor Monitor BGMs Endocrine: Diabetes - chronic A/P: Novolog sliding scale, Levemir 15 units at HS Titrate Levemir Electrolyte Imbalance: hypokalemia - resolved Hematology: Leukocytosis - chronic A/P:Normal lactic acid, no signs of infection, afebrile Cardiology: Hypertension - chronic A/P: On Norvasc, metoprolol and Lisinopril continue Metoprolol and Norvasc, hold Lisinopril secondary to GABE NSR in 70s and 80s Bradycardia on admission, now in NSR in 70s A/P: monitor at [place] Hyperlipidemia - chronic A/P: On Lipitor, hold until creatinine is at 1.0 (her baseline) CAD - chronic A/P: on ASA 81mg daily Minutes to complete discharge: 60 Discharge Summary Reason For Visit: ABDOMINAL PAIN Current Active Problems Abdominal pain (Acute) Condition: Improved - Instructions Diet, Activity, Other Instructions: Gurjit/Sister Anita: Please continue medications as ordered. Repeat lab work within 3 days to monitor Bun/Creatinine. Creatinine 1.3 today, hold lisinopril and statin Resume Lisinopril and Statin once creatinine is 1.0 Restart Metoprolol 100 BID, monitor BP Levemir 15units @ bedtime, adjust slowly based on glucs Sliding scale adjusted for tighter control as follows: Blood sugar Novolog dose 101-150 0 units 151-200 4 units 201-250 6 units 251-300 8 units 301-350 10 units 351-400 12 units >400 14 units Levemir 15 units @ HS, slowly titrate [facility] [phone] Disposition: [facility] - Home Medications Comprehensive Discharge Medication List: Ambulatory Orders Acetaminophen [Tylenol -] 1,000 mg PO Q12H 11/20/16 Amlodipine Besylate [Norvasc -] 10 mg PO DAILY 11/20/16 Aspirin [Aspirin EC] 81 mg PO DAILY 11/20/16 Cholecalciferol (Vitamin D3) [Vitamin D3] 50,000 cap PO MONTHLY 11/20/16 Clopidogrel Bisulfate [Plavix -] 75 mg PO DAILY 11/20/16 Cyanocobalamin (Vitamin B-12) [Cyanocobalamin Injection] 1,000 mcg IM MONTHLY Docusate Sodium [Colace -] 100 mg PO HS 11/20/16 Insulin (Novolog) [NovoLOG FLEXPEN] 4 units SQ DAILY 11/20/16 Insulin (Novolog) [Novolog Flexpen] 10 units SQ BIDAC 11/20/16 Insulin Glargine,Hum.rec.anlog [Lantus Solostar PEN (NF)] 28 units SQ Q12H 11/20 Lisinopril [Zestril] 40 mg PO DAILY 11/20/16 Metoprolol Tartrate 100 mg PO BID 11/20/16 Multivitamin [One Daily] 1 tablet PO DAILY 11/20/16 Pen Needle, Diabetic, Safety [Novofine Autocover] 1 each MC TID 11/20/16 Polyethylene Glycol 3350 [Miralax (For Daily Use) -] 17 gm PO DAILY 11/20/16 Polyvinyl Alcohol [Artificial Tears] 1 drop OD TID 11/20/16 Simvastatin [Zocor] 10 mg PO HS 11/20/16 This patient is new to me today: No Emergency Visit: Yes ED Registration Date: 11/20/16 Care time: The patient presented to the Emergency Department on the above date and was hospitalized for further evaluation of their emergent condition. Critical Care patient: No - Discharge Referral Referred to [facility] No
[2016-11-21] MEDS ORDERED: PT OWN MED DRAWER 7, Y5N ONE (09:33)
[2016-11-21] MEDS: MULTIVITAMINS (DAILY MVI) TABLET (FP) PO SCH (09:36)
[2016-11-21] MEDS: ACETAMINOPHEN 500 MG TABLET (FP) PO SCH (09:36)
[2016-11-21] MEDS: CLOPIDOGREL BISULFATE 75 MG TABLET (FP) PO SCH (09:36)
[2016-11-21] MEDS: amLODIPine BESYLATE 10 MG TABLET (FP) PO SCH (09:36)
[2016-11-21] MEDS: ASPIRIN COATED 81 MG TABLET.EC PO SCH (09:37)
[2016-11-21] MEDS: POLYETHYLENE GLYCOL 3350 119 GM BTL PO SCH ×2 (09:37→09:45)
[2016-11-21 10:00] VITALS: PULSE 69; TEMP 98.9
[2016-11-21] MEDS ORDERED: METOPROLOL TARTRATE 50 MG TABLET (FP) PO SCH (10:00)
== END 2016-11-21 13:14 ==
LOC: JER 23:34 → JERBED 11-20 06:10 → J4W 11-20 08:15
PROVIDERS: ADMIT Internal Medicine; ATTEND Nurse Practitioner Family
PROC: 3E0337Z Introduction of Electrolytic and Water Balance Substance into Peripheral Vein, Percutaneous Approach (ICD-10-PCS; principal; 2016-11-20)
PROC: 3E013VG Introduction of Insulin into Subcutaneous Tissue, Percutaneous Approach (ICD-10-PCS; 2016-11-20)
DX: E11.649 Type 2 diabetes mellitus with hypoglycemia without coma (principal); G93.41 Metabolic encephalopathy; Z79.4 Long term (current) use of insulin; I12.9 Hypertensive chronic kidney disease with stage 1 through stage 4 chronic kidney disease, or unspecified chronic kidney disease; R10.9 Unspecified abdominal pain; N18.3 Chronic kidney disease, stage 3 (moderate); R00.1 Bradycardia, unspecified; I25.10 Atherosclerotic heart disease of native coronary artery without angina pectoris; E78.5 Hyperlipidemia, unspecified; F03.90 Unspecified dementia, unspecified severity, without behavioral disturbance, psychotic disturbance, mood disturbance, and anxiety; D72.829 Elevated white blood cell count, unspecified
CPT/HCPCS: 36415; 71010-TC; 74177-TC; 80048; 80053; 81003; 81015; 82009; 83605; 83690; 83735; 84132; 84443; 84484; 85025; 86850; 86900; 86901; 87086; 93005; 93010; 97116-GP; 97161-GP; 99285-25; G0378

== ENCOUNTER 2017-06-13 13:38 | Inpatient (IN) | payer OTHER ==
--- NOTE | 2017-06-13 13:51 | PDOC ---
History of Present Illness - General History Source: Patient Exam Limitations: No Limitations - History of Present Illness Initial Comments: 06/13/17 15:00 The patient is a 89-year-old female with a significant past medical history of CAD (s/p stent), diabetes, HTN, HLD, and bronchitis, who presents to the emergency department for worsening cough and mild shortness of breath earlier today. Patient states she was diagnosed with pneumonia 3 weeks ago, and took levaquin for an unknown duration. She states she stopped taking levaquin 2 days ago. As per aide, the patient developed a constant and severe productive cough this morning with production of thick yellow sputum. The patient was given a nebulizer this morning with no relief. Upon interview, patient denies any cough or shortness of breath. Patient is not on home O2. Patient states she has been feeling unwell over the last week, with associated nausea, vomiting, rectal pain , and headache. The patient denies chest pain and dizziness. The patient denies fever, chills, hemoptysis, abdominal pain, melena, diarrhea and constipation. The patient denies any urinary changes. Allergies: sulfa Past Surgical History: appendectomy, cardiac stent placement, L TKR Social History: No toxic habits reported PCP: Dr. Nogueira <Anyi Veliz - Last Filed: 06/13/17 15:16> <Emani Yanes - Last Filed: 06/13/17 18:05> - General Chief Complaint: Respiratory Stated Complaint: ILL,PNUEMONIA Time Seen by Provider: 06/13/17 13:51 Past History <Anyi Veliz - Last Filed: 06/13/17 15:16> - Past Medical History Anemia: No Asthma: No Cardiac Disorders: Yes (CAD, stent) COPD: No CHF: Yes Diabetes: Yes HTN: Yes Hypercholesterolemia: Yes - Surgical History Appendectomy: Yes Cardiac Surgery: Yes (cardiac stent) Orthopedic Surgery: Yes (Lt knee replacement) - Suicide/Smoking/Psychosocial Hx Smoking History: Unknown if ever smoked Have you smoked in the past 12 months: No Hx Alcohol Use: No Drug/Substance Use Hx: No Substance Use Type: None Hx Substance Use Treatment: No <Emani Yanes - Last Filed: 06/13/17 18:05> - Past Medical History Allergies/Adverse Reactions: Allergies Allergy/AdvReac Type Severity Reaction Status Date / Time Sulfa (Sulfonamide Allergy Verified 06/13/17 14:09 Antibiotics) Home Medications: Ambulatory Orders Acetaminophen [Tylenol .Extra-Strength -] 1,000 mg PO Q12H 11/20/16 Amlodipine Besylate [Norvasc -] 10 mg PO DAILY 11/20/16 Aspirin [Aspirin EC] 81 mg PO DAILY 11/20/16 Cholecalciferol (Vitamin D3) [Vitamin D3] 50,000 cap PO MONTHLY 11/20/16 Clopidogrel Bisulfate [Plavix -] 75 mg PO DAILY 11/20/16 Cyanocobalamin (Vitamin B-12) [Cyanocobalamin Injection] 1,000 mcg IM MONTHLY Docusate Sodium [Colace -] 100 mg PO HS 11/20/16 Metoprolol Tartrate 100 mg PO BID 11/20/16 Multivitamin [One Daily] 1 tablet PO DAILY 11/20/16 Pen Needle, Diabetic, Safety [Novofine Autocover] 1 each MC TID 11/20/16 Polyethylene Glycol 3350 [Miralax 119 gm Btl -] 17 gm PO DAILY 11/20/16 Polyvinyl Alcohol [Artificial Tears] 1 drop OD TID 11/20/16 Insulin (Levemir) [Levemir Vial] 15 units SQ HS #1 vial 11/21/16 Insulin Sliding Scale [Novolog Vial Sliding Scale -] 1 vial SQ ACHS units 11/21 Insulin Sliding Scale [Novolog Vial Sliding Scale -] 1 vial SQ ACHS units 11/21 Review of Systems - Review of Systems Able to Perform ROS?: Yes Comments:: 06/13/17 15:01 GENERAL/CONSTITUTIONAL: No fever or chills. No weakness. HEAD, EYES, EARS, NOSE AND THROAT: No change in vision. No ear pain or discharge. No sore throat. CARDIOVASCULAR: No chest pain. RESPIRATORY: (+) Cough. No wheezing or hemoptysis. GASTROINTESTINAL: (+) Nausea, (+) vomiting. No diarrhea or constipation. GENITOURINARY: No dysuria, frequency, or change in urination. MUSCULOSKELETAL: No joint or muscle swelling or pain. No neck or back pain. SKIN: No rash NEUROLOGIC: (+) Headache. No vertigo, loss of consciousness, or change in strength/sensation. ENDOCRINE: No increased thirst. No abnormal weight change. HEMATOLOGIC/LYMPHATIC: No anemia, easy bleeding, or history of blood clots. ALLERGIC/IMMUNOLOGIC: No hives or skin allergy. <Anyi Veliz - Last Filed: 06/13/17 15:16> *Physical Exam - Vital Signs Last Vital Signs Temp Pulse Resp BP Pulse Ox 100.8 F H 81 20 144/97 99 06/13/17 13:40 06/13/17 13:40 06/13/17 13:40 06/13/17 13:40 06/13/17 13:40 - Physical Exam Comments: 06/13/17 15:01 GENERAL: Awake, alert, and fully oriented, in no acute distress HEAD: No signs of trauma EYES: PERRLA, EOMI, sclera anicteric, conjunctiva clear ENT: Auricles normal inspection, hearing grossly normal, nares patent, oropharynx clear without exudates. Moist mucosa NECK: Normal ROM, supple, no lymphadenopathy, JVD, or masses LUNGS: (+) Scattered rhonchi at the bases bilaterally. No wheezes, and no crackles HEART: Regular rate and rhythm, normal S1 and S2, no rubs or gallops. (+) Systolic murmur, loudest in the mitral valve. ABDOMEN: Soft, nontender, normoactive bowel sounds. No guarding, no rebound. No masses EXTREMITIES: Normal range of motion, no edema. No clubbing or cyanosis. No cords, erythema, or tenderness NEUROLOGICAL: Cranial nerves II through XII grossly intact. Normal speech SKIN: Warm, Dry, normal turgor, no rashes or lesions noted. <Anyi Veliz - Last Filed: 06/13/17 15:16> ED Treatment Course - LABORATORY CBC & Chemistry Diagram: 06/13/17 15:06 06/13/17 15:06 <Anyi Veliz - Last Filed: 06/13/17 15:16> - LABORATORY CBC & Chemistry Diagram: 06/13/17 15:06 06/13/17 15:06 <Emani Yanes - Last Filed: 06/13/17 18:05> Medical Decision Making - Medical Decision Making 06/13/17 16:38 Pt presents to the ED after sent in from [place] for persistent cough, fever and nausea after treatment for PNA seen on XRay taken 06/02. + fever and rhonchi on exam in the ED. Given failure of outpatient treatment, will admit for IV antibiotics. 06/13/17 18:03 <Emani Yanes - Last Filed: 06/13/17 18:05> *DC/Admit/Observation/Transfer - Attestations Scribe Attestion: 06/13/17 15:01 Documentation prepared by Anyi Veliz, acting as medical supervisor for Emani Yanes MD, /DO. <Anyi Veliz - Last Filed: 06/13/17 15:16> - Discharge Dispostion Admit: Yes <Emani Yanes - Last Filed: 06/13/17 18:05> Diagnosis at time of Disposition: Pneumonia Qualifiers: Pneumonia type: due to unspecified organism Laterality: bilateral Lung location : unspecified part of lung Qualified Code(s): J18.9 - Pneumonia, unspecified organism - Referrals Referrals: Gianni Nogueira MD [Primary Care Provider] -
[2017-06-13 14:11] VITALS: BMI 22.6
[2017-06-13] MEDS ORDERED: PIPERACIL/TAZOB 3.375 GM 3.375 GM/50 ML PREMIX IVPB ONE (14:39)
[2017-06-13] MEDS ORDERED: VANCOMYCIN 1,000 MG VIAL (RESTRICTED TO ID ONLY) IVPB ONE (14:40)
[2017-06-13] MEDS ORDERED: VANCOMYCIN 1 GRAM (PRE-DOCKED) 1,000 MG/250 ML BAG IVPB ONE (15:04)
[2017-06-13] MEDS ORDERED: ACETAMINOPHEN 1000 MG/100 ML VIAL (NON FORMULARY) IVPB ONE (15:14)
[2017-06-13 15:19] LABS: BASO % 0.6 % (0-2.0); EOS % 1.3 % (0-4.5); HEMATOCRIT 35.2 % (32.4-45.2); LYMPH % 3.3 % (8-40); MCH 28.6 pg (25.7-33.7); MEAN PLT VOLUME 9.2 fl (7.5-11.1); MONO % 12.2 % (3.8-10.2); NEUT % 82.6 % (42.8-82.8); PLATELET COUNT 244 K/MM3 (134-434); RBC 4.18 M/mm3 (3.60-5.2); RDW 14.9 % (11.6-15.6); WHITE BLOOD COUNT 9.3 K/mm3 (4.0-10.0)
[2017-06-13 15:34] LABS: INR 1.06 (0.82-1.09)
[2017-06-13 15:35] LABS: ALBUMIN 3.2 g/dl (3.4-5.0); ALK PHOS 70 U/L (45-117); ANION GAP 9 (8-16); BILIRUBIN,TOTAL 0.6 mg/dL (0.2-1.0); BLOOD UREA NITROGEN 22 mg/dL (7-18); CALCIUM 8.6 mg/dL (8.5-10.1); CHLORIDE 98 mmol/L (98-107); CO2 26 mmol/L (21-32); CREATININE 0.9 mg/dL (0.55-1.02); GLUCOSE,RANDOM 199 mg/dL (74-106); SGPT/ALT 16 U/L (12-78); SODIUM 133 mmol/L (136-145); TOT PROT 6.4 g/dl (6.4-8.2)
[2017-06-13 15:36] LABS: ACTIVATED PTT 27.1 SECONDS (26.9-34.4)
[2017-06-13 15:43] LABS: POTASSIUM 4.7 mmol/L (3.5-5.1); SGOT/AST 20 U/L (15-37)
[2017-06-13 16:11] LABS: URINE APPEARANCE CLEAR; URINE BILIRUBIN NEGATIVE (<2.0 mg/dL); URINE BLOOD NEGATIVE (NEGATIVE); URINE COLOR LTYELLOW; URINE GLUCOSE (UA) 2+ (NEGATIVE); URINE KETONE 1+ (NEGATIVE); URINE LEUK ESTERASE TRACE (NEGATIVE); URINE NITRITE NEGATIVE (NEGATIVE); URINE UROBILINOGEN NEGATIVE mg/dL (0.2-1.0)
[2017-06-13 16:14] LABS: VENOUS PC02 44.6 mmHg (38-52); VENOUS PH 7.32 (7.32-7.42); VENOUS PO2 71.7 mmHg (28-48)
[2017-06-13 16:15] LABS: URINE PROTEIN 3+ (NEGATIVE)
[2017-06-13 16:16] LABS: EPI CELLS RARE /HPF (FEW)
[2017-06-13] MEDS ORDERED: ACETAMINOPHEN INJECTION 100 ML IVPB ONE (16:34)
[2017-06-13] MEDS ORDERED: PIPERACILLIN/TAZOB 3.375 GM 3.375 GM/50 ML BAG IVPB ONE (16:34)
--- NOTE | 2017-06-13 18:09 | HP ---
CHIEF COMPLAINT: coughing, increased sputum, shortness of breath PCP: Dr. Nogueira HISTORY OF PRESENT ILLNESS: Patient is a resident of [facility]. 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 She presented to the ED today with worsening cough and mild shortness of breath. Patient was reportedly on PO Levaquin for pneumonia but after she stopped taking Levaquin apx 2 days prior, her symptoms returned and her coughing worsened. At [facility], patient was given nebulizers but with no relief. Patient is not home oxygen dependent. In the ED she was laying in bed in mild respiratory distress with audible wheezing. She has mild wheezing on anterior upper lobes. She denies chest pain , denies any abdominal pain or discomfort, denies any urinary symptoms. She presents as profoundly weak. She is alert and oriented x 3 and answers all questions appropriately with noted conversational dyspnea. ER course was notable for: (1) Chest xray with bilateral pleural effusions, vs. consolidation mid to lower lungs (2) fever 100.8 (3) Zosyn, Vanco given in ED (4) Lactic acid 1.0 (5) glucose 199 (6) NA 133 Recent Travel: n/a PAST MEDICAL HISTORY: PAST SURGICAL HISTORY: appendectomy, cardiac stent placement, L TKR Social History: Smoking: n/a Alcohol: n/a Drugs: n/a Family History: Allergies Sulfa (Sulfonamide Antibiotics) Allergy (Verified 06/13/17 14:09) HOME MEDICATIONS: Home Medications Medication Instructions Recorded Acetaminophen [Tylenol 1,000 mg PO Q12H 11/20/16 .Extra-Strength -] Amlodipine Besylate [Norvasc -] 10 mg PO DAILY 11/20/16 Aspirin [Aspirin EC] 81 mg PO DAILY 11/20/16 Cholecalciferol (Vitamin D3) 50,000 cap PO MONTHLY 11/20/16 [Vitamin D3] Clopidogrel Bisulfate [Plavix -] 75 mg PO DAILY 11/20/16 Cyanocobalamin (Vitamin B-12) 1,000 mcg IM MONTHLY 11/20/16 [Cyanocobalamin Injection] Docusate Sodium [Colace -] 100 mg PO HS 11/20/16 Metoprolol Tartrate 100 mg PO BID 11/20/16 Multivitamin [One Daily] 1 tablet PO DAILY 11/20/16 Pen Needle, Diabetic, Safety 1 each MC TID 11/20/16 [Novofine Autocover] Polyethylene Glycol 3350 [Miralax 17 gm PO DAILY 11/20/16 119 gm Btl -] Polyvinyl Alcohol [Artificial 1 drop OD TID 11/20/16 Tears] Insulin (Levemir) [Levemir Vial] 15 units SQ HS #1 vial 11/21/16 Insulin Sliding Scale [Novolog 1 vial SQ ACHS units 11/21/16 Vial Sliding Scale -] Insulin Sliding Scale [Novolog 1 vial SQ ACHS units 11/21/16 Vial Sliding Scale -] PHYSICAL EXAMINATION Vital Signs - 24 hr 06/13/17 13:40 Temperature 100.8 F H Pulse Rate 81 Respiratory 20 Rate Blood Pressure 144/97 O2 Sat by Pulse 99 Oximetry (%) GENERAL: Awake, alert, and fully oriented, in mild respiratory distress. Profoundly weak. HEAD: Normal with no signs of trauma. EYES: Pupils equal, round and reactive to light, extraocular movements intact, sclera anicteric, conjunctiva clear. No lid lag. EARS, NOSE, THROAT: Ears normal, nares patent, oropharynx clear without exudates. Moist mucous membranes. NECK: Normal range of motion, supple without lymphadenopathy, JVD, or masses. LUNGS: audible wheezing, anterior upper lobes with mild expiratory wheezing, posterior lungs sounds diminished. HEART: Regular rate and rhythm ABDOMEN: distended abdomen, + bowel sounds MUSCULOSKELETAL: Normal range of motion at all joints. No bony deformities or tenderness. No CVA tenderness. UPPER EXTREMITIES: 2+ pulses, warm, well-perfused. No cyanosis. No clubbing. No peripheral edema. LOWER EXTREMITIES: 2+ pulses, warm, well-perfused. No calf tenderness. No peripheral edema. NEUROLOGICAL: Normal speech. Normal gait. PSYCHIATRIC: Cooperative. Good eye contact. Appropriate mood and affect. SKIN: Warm, dry, normal turgor, no rashes or lesions noted, normal capillary refill. Laboratory Results - last 24 hr 06/13/17 06/13/17 06/13/17 15:06 15:06 15:06 WBC 9.3 RBC 4.18 Hgb 12.0 Hct 35.2 MCV 84.0 MCH 28.6 MCHC 34.0 RDW 14.9 Plt Count 244 MPV 9.2 Neutrophils % 82.6 D Lymphocytes % 3.3 L D Monocytes % 12.2 H Eosinophils % 1.3 Basophils % 0.6 PT with INR 12.00 H INR 1.06 PTT (Actin FS) 27.1 VBG pH POC VBG pCO2 POC VBG pO2 Mixed VBG HCO3 Sodium 133 L Potassium 4.7 Chloride 98 Carbon Dioxide 26 Anion Gap 9 BUN 22 H Creatinine 0.9 Creat Clearance w eGFR 58.95 Random Glucose 199 H Lactic Acid Calcium 8.6 Total Bilirubin 0.6 D AST 20 ALT 16 Alkaline Phosphatase 70 Troponin I < 0.02 Total Protein 6.4 Albumin 3.2 L Urine Color Urine Appearance Urine pH Ur Specific [place] Urine Protein Urine Glucose (UA) Urine Ketones Urine Blood Urine Nitrite Urine Bilirubin Urine Urobilinogen Ur Leukocyte Esterase Urine WBC (Auto) Urine RBC (Auto) Ur Epithelial Cells 06/13/17 06/13/17 06/13/17 15:06 15:06 15:30 WBC RBC Hgb Hct MCV MCH MCHC RDW Plt Count MPV Neutrophils % Lymphocytes % Monocytes % Eosinophils % Basophils % PT with INR INR PTT (Actin FS) VBG pH POC VBG pCO2 POC VBG pO2 Mixed VBG HCO3 Sodium Potassium Chloride Carbon Dioxide Anion Gap BUN Creatinine Creat Clearance w eGFR Random Glucose Lactic Acid 1.0 Calcium Total Bilirubin AST ALT Alkaline Phosphatase Troponin I Cancelled Total Protein Albumin Urine Color Ltyellow Urine Appearance Clear Urine pH 6.0 Ur Specific [place] 1.015 Urine Protein 3+ H Urine Glucose (UA) 2+ H Urine Ketones 1+ H Urine Blood Negative Urine Nitrite Negative Urine Bilirubin Negative Urine Urobilinogen Negative Ur Leukocyte Esterase Trace Urine WBC (Auto) 11 Urine RBC (Auto) 1 Ur Epithelial Cells Rare 06/13/17 06/13/17 15:45 16:42 WBC RBC Hgb Hct MCV MCH MCHC RDW Plt Count MPV Neutrophils % Lymphocytes % Monocytes % Eosinophils % Basophils % PT with INR INR PTT (Actin FS) VBG pH 7.32 POC VBG pCO2 44.6 POC VBG pO2 71.7 H Mixed VBG HCO3 22.5 Sodium Potassium Chloride Carbon Dioxide Anion Gap BUN Creatinine Creat Clearance w eGFR Random Glucose Lactic Acid 1.0 Calcium Total Bilirubin AST ALT Alkaline Phosphatase Troponin I Total Protein Albumin Urine Color Urine Appearance Urine pH Ur Specific [place] Urine Protein Urine Glucose (UA) Urine Ketones Urine Blood Urine Nitrite Urine Bilirubin Urine Urobilinogen Ur Leukocyte Esterase Urine WBC (Auto) Urine RBC (Auto) Ur Epithelial Cells ASSESSMENT/PLAN: 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 She presented to the ED today with worsening cough and mild shortness of breath. Patient was reportedly on PO Levaquin for pneumonia but after she stopped taking Levaquin apx 2 days prior, her symptoms returned and her coughing worsened. At [facility], patient was given nebulizers but with no relief. Patient is not home oxygen dependent. In the ED she was laying in bed in mild respiratory distress with audible wheezing. She has mild wheezing on anterior upper lobes. She denies chest pain , denies any abdominal pain or discomfort, denies any urinary symptoms. She presents as profoundly weak. She is alert and oriented x 3 and answers all questions appropriately with noted conversational dyspnea. Imaging: Chest xray with bilateral pleural effusions, vs. consolidation mid to lower lungs Pulmonary: Pneumonia, acute Does not meet SIRs criteria, presents with fever secondary to unresolved PNA Lactic acid within normal limits Chest xray with bilateral pleural effusions Failed outpatient PO antibiotic therapy Noted to have oxygen saturation of 89% on room air Ordered oxygen 2 liters, scheduled duonebs Given Zosyn and Vanco in ED Will give Solumedrol x 24 hours and monitor for improvement ID consult for further antibiotic therapy Monitor oxygen sats to maintain 92% or better on 2 liters, and wean off as tolerated Pre and post prior to d/c to evaluate for home oxygen use Influenza swab now Pulmonary consult ID: Blood and urine culture pending Monitor labs, vitals, pulse ox ID consult for antibiotic therapy Endocrine Diabetes, chronic Novolog SS with Levemir 15 units @ hs Monitor BGMs in the setting of steriod therapy and uptitrate coverage as needed Card: CAD (with stents) On ASA and Plavix Negative trop on admission, will trend 2 more Hypertension, chronic Continue home cardiac meds Hyperlipedemia, chronic Lipid panel in a.m. F.E.N. Fluids: none, monitor PO intake Electrolytes: daily bmp, monitor hyponatremia Nutrition: diabetic diet Prophy: DVT: Heparin BID GI: Protonix while on steroids Disposition: full code. Of note, she has a non hospital DNR form in the chart dated 2014 with Rosa Bond as her HCP. Visit type - Emergency Visit Emergency Visit: Yes ED Registration Date: 06/13/17 Care time: The patient presented to the Emergency Department on the above date and was hospitalized for further evaluation of their emergent condition. - New Patient This patient is new to me today: Yes Date on this admission: 06/13/17 - Critical Care Critical Care patient: No Hospitalist Screening - Colonoscopy Questionnaire Colonoscopy Questionnaire: Colonoscopy Questionnaire - Patient: 50 - 75 years old and never had a screening colonoscopy: Yes History of colon or rectal polyps, or CA: Unknown History of IBD, Crohn's disease or UC: Unknown History of abdominal radiation therapy as a child: Unknown - Relative: 1 with colon or rectal CA, or polyps at age 60 or younger: Unknown Colon or rectal CA diagnosed at age 45 or younger: Unknown Multiple relatives with colon or rectal CA: Unknown - Outcome: Screening Result: Positive Screen
[2017-06-13] MEDS ORDERED: methylPREDNISolone NA SUCC 40 MG/1 ML VIAL IVPUSH ONE (18:40)
[2017-06-13] MEDS ORDERED: methylPREDNISolone NA SUCC 40 MG/1 ML VIAL ONE (18:59)
[2017-06-13] MEDS ORDERED: ACETAMINOPHEN 325 MG TABLET (FP) PO PRN (19:30)
[2017-06-13] MEDS: ALBUTEROL SO4 2.5/IPRATROPIUM 0.5 INH SOL 3 ML VIAL.NEB. NEB SCH (20:03)
[2017-06-13] MEDS: ARTIFICIAL TEARS (POLYVINYL ALCOHOL 1.4%) OPTH DROPS OD SCH (23:00)
[2017-06-13] MEDS: HEPARIN NA (PORCINE) 5,000 UNITS/ML 1ML VIAL SQ SCH (23:09)
[2017-06-13] MEDS: DOCUSATE SODIUM 100 MG CAPSULE (FP) PO SCH (23:10)
[2017-06-13] MEDS: INSULIN DETEMIR 100 UNITS/ML MDV SQ SCH (23:10)
[2017-06-13] MEDS: METOPROLOL TARTRATE 50 MG TABLET (FP) PO SCH (23:10)
[2017-06-13] MEDS: INSULIN SLIDING SCALE (NOVOLOG) 1 VIAL SQ SCH (23:14)
[2017-06-14] MEDS ORDERED: PIPERACILLIN/TAZOBACTAM 3.375 GM VIAL IVPB ONE ×3 (01:02→14:08)
[2017-06-14] MEDS ORDERED: DEXTROSE 5%-WATER 100 ML IVPB ONE ×3 (01:02→14:08)
[2017-06-14] MEDS: WATER IVPB SCH ×3 (02:22→19:00)
[2017-06-14] MEDS: PIPERACILLIN IVPB SCH ×3 (02:22→19:00)
[2017-06-14] MEDS: DEXTROSE 5% IVPB SCH ×3 (02:22→19:00)
[2017-06-14] MEDS: TAZOB IVPB SCH ×3 (02:22→19:00)
[2017-06-14] MEDS: methylPREDNISolone NA SUCC 40 MG/1 ML VIAL IVPUSH SCH ×4 (02:22→21:39)
[2017-06-14] MEDS: ARTIFICIAL TEARS (POLYVINYL ALCOHOL 1.4%) OPTH DROPS OD SCH ×3 (06:26→21:39)
[2017-06-14] MEDS: INSULIN SLIDING SCALE (NOVOLOG) 1 VIAL SQ SCH ×4 (06:28→21:37)
[2017-06-14 07:51] LABS: HEMATOCRIT 36.3 % (32.4-45.2); MCH 27.9 pg (25.7-33.7); MCHC 33.1 g/dl (32.0-36.0); MEAN CELL VOLUME 84.4 fl (80-96); MEAN PLT VOLUME 9.1 fl (7.5-11.1); PLATELET COUNT 228 K/MM3 (134-434); RDW 14.9 % (11.6-15.6); WHITE BLOOD COUNT 7.1 K/mm3 (4.0-10.0)
[2017-06-14 08:30] LABS: ANION GAP 10 (8-16); BLOOD UREA NITROGEN 28 mg/dL (7-18); CALCIUM 8.8 mg/dL (8.5-10.1); CHLORIDE 96 mmol/L (98-107); CO2 28 mmol/L (21-32); GLUCOSE,RANDOM 285 mg/dL (74-106); MAGNESIUM 2.5 mg/dL (1.8-2.4); POTASSIUM 4.6 mmol/L (3.5-5.1); SODIUM 134 mmol/L (136-145)
[2017-06-14 08:31] LABS: CREATININE 1.1 mg/dL (0.55-1.02)
[2017-06-14] MEDS ORDERED: ALBUTEROL SO4 0.083% IH SOL 2.5 MG/3 ML VIAL.NEB. NEB PRN (08:36)
[2017-06-14 08:41] LABS: CHOLESTEROL 120 mg/dL (50-200); HDL CHOLESTEROL 49 mg/dL (40-60); LDL CHOLESTEROL (ONLY SJRH) 67 mg/dL (5-100); TRIGLYCERIDES 78 mg/dL (35-160)
[2017-06-14] MEDS: ALBUTEROL SO4 2.5/IPRATROPIUM 0.5 INH SOL 3 ML VIAL.NEB. NEB SCH ×4 (08:55→21:00)
[2017-06-14] MEDS ORDERED: FUROSEMIDE 40 MG/4 ML INJECTABLE VIAL IVPUSH ONE (11:03)
[2017-06-14] MEDS: MULTIVITAMINS (DAILY MVI) TABLET (FP) PO SCH (11:06)
[2017-06-14] MEDS: CLOPIDOGREL BISULFATE 75 MG TABLET (FP) PO SCH (11:06)
[2017-06-14] MEDS: PANTOPRAZOLE 40 MG TABLET (FP) PO SCH (11:06)
[2017-06-14] MEDS: ASPIRIN COATED 81 MG TABLET.EC PO SCH (11:06)
[2017-06-14] MEDS: amLODIPine BESYLATE 10 MG TABLET (FP) PO SCH (11:06)
[2017-06-14] MEDS: METOPROLOL TARTRATE 50 MG TABLET (FP) PO SCH ×2 (11:06→21:39)
[2017-06-14] MEDS: HEPARIN NA (PORCINE) 5,000 UNITS/ML 1ML VIAL SQ SCH ×2 (11:06→21:38)
[2017-06-14] MEDS: POLYETHYLENE GLYCOL 3350 119 GM BTL PO SCH (11:07)
--- NOTE | 2017-06-14 11:16 | PN ---
Progress Note (short form) - Note Progress Note: Subjective: The patient was seen and examined at the bedside, she reports feeling better today, he states her cough has improved and her shortness of breath has improved as well. Current Medications Generic Name Dose Route Start Last Admin Trade Name Freq PRN Reason Stop Dose Admin Acetaminophen 650 mg 06/13/17 19:30 Tylenol - PO Q6H PRN FEVER Albuterol Sulfate 1 amp 06/14/17 08:36 Ventolin 0.083% Nebulizer Soln - NEB Q4H PRN SHORT OF BREATH/WHEEZING Albuterol/Ipratropium 1 amp 06/13/17 20:00 06/14/17 08:55 Duoneb - NEB 1 amp RQID SILVA Administration Amlodipine Besylate 10 mg 06/14/17 10:00 Norvasc - PO DAILY SILVA Artificial Tears 1 drop 06/13/17 22:00 06/14/17 06:26 Artificial Tears OD 1 drop TID SILVA Administration Aspirin 81 mg 06/14/17 10:00 Ecotrin - PO DAILY SILVA Clopidogrel Bisulfate 75 mg 06/14/17 10:00 Plavix - PO DAILY SILVA Docusate Sodium 100 mg 06/13/17 22:00 06/13/17 23:10 Colace - PO 100 mg HS SILVA Administration Heparin Sodium (Porcine) 5,000 unit 06/13/17 22:00 06/13/17 23:09 Heparin - SQ 5,000 unit BID SILVA Administration Piperacillin Sod/Tazobactam 50 mls @ 100 mls/hr 06/14/17 02:00 06/14/17 02:22 Sod 3.375 gm/ Dextrose IVPB 100 mls/hr Q8H-IV SILVA Administration Protocol Insulin Aspart 1 vial 06/13/17 22:00 06/14/17 06:28 Novolog Vial Sliding Scale - SQ 6 units ACHS SILVA Administration Protocol Insulin Detemir 10 units 06/13/17 22:00 06/13/17 23:10 Levemir Vial SQ 10 units HS SILVA Administration Methylprednisolone Sodium Succinate 40 mg 06/14/17 03:00 06/14/17 02:22 Solu-Medrol - IVPUSH 40 mg Q6H-IV SILVA Administration Metoprolol Tartrate 100 mg 06/13/17 22:00 06/13/17 23:10 Lopressor - PO 100 mg BID SILVA Administration Multivitamins/Minerals/Vitamin C 1 tab 06/14/17 10:00 Tab-A-Vit - PO DAILY SILVA Pantoprazole Sodium 40 mg 06/14/17 10:00 Protonix - PO DAILY SILVA Polyethylene Glycol 17 gm 06/14/17 10:00 Miralax (For Daily Use) - PO DAILY SILVA Objective: Vital Signs Period Temp Pulse Resp BP Sys/Araiza Pulse Ox Last 24 Hr 97.4 F-100.8 F 58-81 18-20 136-182/53-97 98-99 Physical Exam: General: NAD Lungs: B/l inspiratory and expiratory wheezing Heart: RRR, S1S2 Abd: Soft, non-tender, non-distended Ext: Warm, well-perfused CBCD WBC 7.1 K/mm3 (4.0-10.0) 06/14/17 06:00 RBC 4.30 M/mm3 (3.60-5.2) 06/14/17 06:00 Hgb 12.0 GM/dL (10.7-15.3) 06/14/17 06:00 Hct 36.3 % (32.4-45.2) 06/14/17 06:00 MCV 84.4 fl (80-96) 06/14/17 06:00 MCHC 33.1 g/dl (32.0-36.0) 06/14/17 06:00 RDW 14.9 % (11.6-15.6) 06/14/17 06:00 Plt Count 228 K/MM3 (134-434) 06/14/17 06:00 MPV 9.1 fl (7.5-11.1) 06/14/17 06:00 CMP Sodium 134 mmol/L (136-145) L 06/14/17 06:00 Potassium 4.6 mmol/L (3.5-5.1) 06/14/17 06:00 Chloride 96 mmol/L (98-107) L 06/14/17 06:00 Carbon Dioxide 28 mmol/L (21-32) 06/14/17 06:00 Anion Gap 10 (8-16) 06/14/17 06:00 BUN 28 mg/dL (7-18) H 06/14/17 06:00 Creatinine 1.1 mg/dL (0.55-1.02) H 06/14/17 06:00 Creat Clearance w eGFR 58.95 (>60) 06/13/17 15:06 Random Glucose 285 mg/dL (74-106) H 06/14/17 06:00 Calcium 8.8 mg/dL (8.5-10.1) 06/14/17 06:00 Total Bilirubin 0.6 mg/dL (0.2-1.0) D 06/13/17 15:06 AST 20 U/L (15-37) 06/13/17 15:06 ALT 16 U/L (12-78) 06/13/17 15:06 Alkaline Phosphatase 70 U/L (45-117) 06/13/17 15:06 Total Protein 6.4 g/dl (6.4-8.2) 06/13/17 15:06 Albumin 3.2 g/dl (3.4-5.0) L 06/13/17 15:06 CARDIAC ENZYMES Troponin I < 0.02 ng/ml (0.00-0.05) 06/14/17 03:30 Microbiology 06/14/17 00:05 Nasopharyngeal Swab Influenza Types A,B Antigen (VEE) - Final 06/14/17 00:05 Nasopharyngeal Swab - Final Assessment: This is an 89 year old female with PMHx of CAD (with stents), DM, HTN, hyperlipidemia, CKD, OA, macular degeneration, who presented to the ED with worsening cough and shortness of breath. Plan: 1) B/l pleural effusions - Possible new CHF diagnosis? - F/u ECHO - Start Lasix - Strict I&O - Daily weights - Repeat chest x-ray after diuresis 2) Pneumonia - Failed outpatient abx therapy - Continue Zosyn - Appreciate ID consult 3) Acute COPD exacerbation - Continue Solu-medrol 40mg IVP q6h - Duonebs qid - Albuterol nebs q4h - F/u pulmonary consult 4) DM - BGM ACHS - ISS ACHS - Levemir 10u sq hs 5) CAD s/p stenting - Continue ASA - Continue Plavix 6) CKD - Cr ~baseline 7) F/E/N: - Diabetic diet 8) Prophylaxis: - Heparin 5,000u sq bid - PT 9) Dispo: - Requires continued inpatient care CODE STATUS: FULL CODE Visit type - Emergency Visit Emergency Visit: Yes ED Registration Date: 06/13/17 Care time: The patient presented to the Emergency Department on the above date and was hospitalized for further evaluation of their emergent condition. - New Patient This patient is new to me today: Yes Date on this admission: 06/14/17 - Critical Care Critical Care patient: No
--- NOTE | 2017-06-14 12:33 | CON.ID ---
Consult Consult Specialty:: infectious diseases Referred by:: Mary Reason for Consultation:: sob,pna - History of Present Illness Chief Complaint: sob weakness,cold History of Present Illness: 89 year old female with a significant past medical history of CAD , diabetes mellitus, hypertension, hyperlipidemia, CKD, OA, bronchitis and macular degeneration. admitted with worsening cough and mild shortness of breath. According tot he family patient was started on levaquin for the cold and cough she got and as she was diagnosed with pneumonia Patient mentions that it did not help her and her symptoms came back and patient became sob and was transferred to the hospital currently the patient is feeling well the family is there still feels very congested patient is a bit hard of hearing also noted was that on admission patient had a low grade fever - History Source History Provided By: Patient, Family Member Limitations to Obtaining History: No Limitations - Past Medical History Cardio/Vascular: Yes: CAD (PCI/stent), HTN, Hyperlipdemia Endocrine: Yes: Diabetes Mellitus - Past Surgical History Past Surgical History: Yes: Appendectomy, Stent (cardiac) - Alcohol/Substance Use Hx Alcohol Use: No History of Substance Use: reports: None - Smoking History Smoking history: Unknown if ever smoked Have you smoked in the past 12 months: No - Social History ADL: Support Services 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 History of Recent Travel: No Home Medications - Allergies Allergies/Adverse Reactions: Allergies Allergy/AdvReac Type Severity Reaction Status Date / Time Sulfa (Sulfonamide Allergy Verified 06/13/17 14:09 Antibiotics) - Home Medications Home Medications: Ambulatory Orders Acetaminophen [Tylenol .Extra-Strength -] 1,000 mg PO Q12H 11/20/16 Amlodipine Besylate [Norvasc -] 10 mg PO DAILY 11/20/16 Aspirin [Aspirin EC] 81 mg PO DAILY 11/20/16 Cholecalciferol (Vitamin D3) [Vitamin D3] 50,000 cap PO MONTHLY 11/20/16 Clopidogrel Bisulfate [Plavix -] 75 mg PO DAILY 11/20/16 Cyanocobalamin (Vitamin B-12) [Cyanocobalamin Injection] 1,000 mcg IM MONTHLY Docusate Sodium [Colace -] 100 mg PO HS 11/20/16 Metoprolol Tartrate 100 mg PO BID 11/20/16 Multivitamin [One Daily] 1 tablet PO DAILY 11/20/16 Pen Needle, Diabetic, Safety [Novofine Autocover] 1 each MC TID 11/20/16 Polyethylene Glycol 3350 [Miralax 119 gm Btl -] 17 gm PO DAILY 11/20/16 Polyvinyl Alcohol [Artificial Tears] 1 drop OD TID 11/20/16 Insulin (Levemir) [Levemir Vial] 15 units SQ HS #1 vial 11/21/16 Insulin Sliding Scale [Novolog Vial Sliding Scale -] 1 vial SQ ACHS units 11/21 Insulin Sliding Scale [Novolog Vial Sliding Scale -] 1 vial SQ ACHS units 11/21 Review of Systems - Review of Systems Constitutional: reports: Fever Neck: reports: No Symptoms Cardiovascular: reports: No Symptoms Respiratory: reports: SOB, SOB on Exertion, Wheezing Gastrointestinal: reports: No Symptoms Genitourinary: reports: No Symptoms Musculoskeletal: reports: No Symptoms Integumentary: reports: No Symptoms Neurological: reports: No Symptoms Endocrine: reports: No Symptoms Hematology/Lymphatic: reports: No Symptoms Psychiatric: reports: No Symptoms Physical Exam Vital Signs: Vital Signs Temperature 97.6 F 06/14/17 05:00 Pulse Rate 59 L 06/14/17 05:00 Respiratory Rate 20 06/14/17 05:00 Blood Pressure 149/63 06/14/17 05:00 O2 Sat by Pulse Oximetry (%) 99 06/13/17 22:00 Constitutional: Yes: No Distress, Calm Eyes: Yes: Conjunctiva Clear HENT: Yes: Atraumatic Neck: Yes: Supple, Trachea Midline Cardiovascular: Yes: Regular Rate and Rhythm Respiratory: Yes: On Nasal O2, Poor Air Entry, Wheezes Gastrointestinal: Yes: Normal Bowel Sounds, Soft Musculoskeletal: Yes: WNL Extremities: Yes: WNL Neurological: Yes: Alert, Oriented Psychiatric: Yes: Alert, Oriented Labs: CBC, BMP 06/14/17 06:00 06/14/17 06:00 Imaging - Results Chest X-ray: Report Reviewed, Image Reviewed Assessment/Plan patient with multiple medical problems admitted for pneumonia given vanco and zosyn in the er now improving pna dm hyperlipidemia cough sob plan we will continue zosyn await for blood cx rest continue current mgmt incentive isabela
--- NOTE | 2017-06-14 13:13 | EKG ---
Test Reason : Blood Pressure : / mmHG Vent. Rate : 082 BPM Atrial Rate : 082 BPM P-R Int : 166 ms QRS Dur : 074 ms QT Int : 358 ms P-R-T Axes : 014 -18 043 degrees QTc Int : 418 ms NORMAL SINUS RHYTHM SEPTAL INFARCT (CITED ON OR BEFORE 19-NOV-2016) ABNORMAL ECG WHEN COMPARED WITH ECG OF 19-NOV-2016 23:53, VENT. RATE HAS INCREASED BY 31 BPM QT HAS SHORTENED Confirmed by SABA BOWLING, GRACE ([id number]) on 06/14/2017 1:12:57 PM Referred By: Confirmed By:GRACE WALTER MD
--- NOTE | 2017-06-14 17:30 | PN ---
Progress Note (short form) - Note Progress Note: PULMONARY CONSULTATION DICTATED 06/14/17 IMP ACUTE RESPIRATORY DISTRESS BILATERAL PNEUMONIA CHF ASHD S/P STENT PULMONARY HTN HTN GABE PLAN IV ANTIBIOTICS INHALED BRONCHODILATORS SHORT COURSE OF STEROIDS O2 ANTI-TUSSIVES CHEST CT SPUTUM C+S MONITOR LYTES,RENAL FUNCTION CHECK BNP F/U CHEST X-RAYS DR RAMOS Problem List - Problems (1) Respiratory distress Code(s): R06.03 - ACUTE RESPIRATORY DISTRESS (2) Pneumonia Code(s): J18.9 - PNEUMONIA, UNSPECIFIED ORGANISM Qualifiers: Pneumonia type: due to unspecified organism Laterality: bilateral Lung location: unspecified part of lung Qualified Code(s): J18.9 - Pneumonia, unspecified organism (3) CAD (coronary artery disease) Code(s): I25.10 - ATHSCL HEART DISEASE OF [place] CORONARY ARTERY W/O ANG PCTRS Qualifiers: Coronary Disease-Associated Artery/Lesion type: [place] coronary artery [place] vs. transplanted heart: [place] heart Associated angina: without angina pectoris (4) Diabetes mellitus type 2, uncontrolled Code(s): E11.65 - TYPE 2 DIABETES MELLITUS WITH HYPERGLYCEMIA (5) History of coronary artery stent placement Code(s): Z95.5 - PRESENCE OF CORONARY ANGIOPLASTY IMPLANT AND GRAFT (6) Hyperlipidemia Code(s): E78.5 - HYPERLIPIDEMIA, UNSPECIFIED (7) Hypertension Code(s): I10 - ESSENTIAL (PRIMARY) HYPERTENSION Qualifiers: Hypertension type: essential hypertension Qualified Code(s): I10 - Essential (primary) hypertension (8) Acute kidney injury Code(s): N17.9 - ACUTE KIDNEY FAILURE, UNSPECIFIED
--- NOTE | 2017-06-14 18:20 | CONS ---
DATE OF CONSULTATION: 06/14/2017 PULMONARY CONSULTATION REFERRING PHYSICIAN: Henna Mitchell N.P. HISTORY OF PRESENT ILLNESS: The patient is an 89-year-old white female with a past medical history of ASHD status post stent, diabetes, hypertension, hyperlipidemia, bronchitis, admitted to [facility] secondary to increasing shortness of breath, worsening cough. Patient is currently a resident at the senior living. Apparently she was diagnosed 3 weeks ago, 3 weeks prior to this admission with pneumonia. At the time she was placed on Levaquin of unknown duration. She apparently stopped the duration approximately 2 days prior to this admission. Apparently on the day of admission, she started developing increasing shortness of breath and severe productive cough with thick yellow sputum. She was administered inhaled bronchodilator without any improvement. Patient was transferred to [facility] ER for further evaluation. On admission, she was noted on x-ray to have bilateral infiltrates, bilateral pleural effusion. She was also noted to febrile, and she was transferred to medical floor. She was started on broad spectrum antibiotics per infectious disease. Of note is she underwent an echocardiogram earlier today which revealed evidence of normal LV function, not well visualized, severe pulmonary hypertension to 50, 60 mmHg, and moderate tricuspid regurgitation. The patient is a nonsmoker. She denies any history of occupational exposure to chemicals or fumes. There is no history of DVT or PE in the past. PAST MEDICAL HISTORY: Again includes hypertension, history of bronchitis, ASHD, diabetes, hyperlipidemia, macular degeneration, chronic kidney disease. REVIEW OF SYSTEMS: Positive cough. Positive sputum. Positive fever. No chills. No chest pain. No palpitations. Positive shortness of breath. No hemoptysis. No abdominal pain. No lower extremity edema. CURRENT MEDICATIONS: Include Solu-Medrol 40 q.6, Tylenol, Zosyn, heparin subcutaneous, albuterol, DuoNeb, Lopressor, Colace, Miralax, Norvasc, artificial tears, insulin, Novolog, multivitamins, Ecotrin, Plavix, and Protonix. PHYSICAL EXAMINATION: General: The patient is an elderly white female, well-developed, well-nourished, awake, alert, currently in no acute respiratory distress. Vital signs: She is currently afebrile. Blood pressure 138/58, respiratory rate 20, and O2 saturation is 98% on 2 L. HEENT: Head is normocephalic, atraumatic. Neck: Supple. Heart: Regular. S1, S2. Chest: Bilateral wheezes. A few bibasilar crackles. Abdomen: Soft. Bowel sounds positive. Extremities: No cyanosis, edema. LABORATORY: Sodium 134, BUN 28, creatinine 1.1, magnesium 2.5. WBC 7.1, hemoglobin 12, hematocrit 36.3 and platelet count of 228,000. INR is 1.06. Venous blood gas: pH 7.32, pCO2 of 44, pO2 71, bicarbonate 22, lactate 1.0. BNP is pending. Chest x-ray reveals mild cardiomegaly, bilateral pulmonary infiltrates, bilateral pleural effusions. IMPRESSION: Respiratory distress secondary to multiple factors: 1. Bilateral pneumonia. 2. Decompensated congestive heart failure. 3. Severe pulmonary hypertension. 4. Hypertension. 5. Atherosclerotic heart disease status post stents. 6. Acute kidney injury. Suggest continuing broad spectrum antibiotics as per infectious disease, supplemental O2, inhaled bronchodilators, steroids, will obtain CT scan of the chest, chest serum , monitor renal function. SILVIA RAMOS M.D. [id number]
[2017-06-14] MEDS ORDERED: INSULIN (NOVOLOG) ASPART 100 UNITS/ML 10ML VIAL ONE (21:17)
[2017-06-14] MEDS: INSULIN DETEMIR 100 UNITS/ML MDV SQ SCH (21:38)
[2017-06-14] MEDS: DOCUSATE SODIUM 100 MG CAPSULE (FP) PO SCH (21:39)
[2017-06-15] MEDS ORDERED: DEXTROSE 5%-WATER 100 ML IVPB ONE ×3 (01:16→16:41)
[2017-06-15] MEDS ORDERED: PIPERACILLIN/TAZOBACTAM 3.375 GM VIAL IVPB ONE ×3 (01:16→16:40)
[2017-06-15] MEDS: WATER IVPB SCH ×3 (01:25→17:35)
[2017-06-15] MEDS: DEXTROSE 5% IVPB SCH ×3 (01:25→17:35)
[2017-06-15] MEDS: TAZOB IVPB SCH ×3 (01:25→17:35)
[2017-06-15] MEDS: PIPERACILLIN IVPB SCH ×3 (01:25→17:35)
[2017-06-15] MEDS: methylPREDNISolone NA SUCC 40 MG/1 ML VIAL IVPUSH SCH ×3 (03:13→17:35)
[2017-06-15] MEDS: ARTIFICIAL TEARS (POLYVINYL ALCOHOL 1.4%) OPTH DROPS OD SCH ×3 (06:13→21:28)
[2017-06-15] MEDS: INSULIN SLIDING SCALE (NOVOLOG) 1 VIAL SQ SCH ×4 (06:14→21:27)
[2017-06-15 07:38] LABS: BASO % 0.3 % (0-2.0); HEMATOCRIT 32.7 % (32.4-45.2); MCH 28.3 pg (25.7-33.7); MCHC 33.7 g/dl (32.0-36.0); MEAN CELL VOLUME 83.9 fl (80-96); MEAN PLT VOLUME 8.8 fl (7.5-11.1); MONO % 6.3 % (3.8-10.2); NEUT % 90.4 % (42.8-82.8); PLATELET COUNT 202 K/MM3 (134-434); RBC 3.89 M/mm3 (3.60-5.2); RDW 14.8 % (11.6-15.6); WHITE BLOOD COUNT 8.3 K/mm3 (4.0-10.0)
[2017-06-15] MEDS: ALBUTEROL SO4 2.5/IPRATROPIUM 0.5 INH SOL 3 ML VIAL.NEB. NEB SCH ×4 (08:00→20:26)
[2017-06-15 08:24] LABS: ALBUMIN 2.9 g/dl (3.4-5.0); BLOOD UREA NITROGEN 30 mg/dL (7-18); CHLORIDE 95 mmol/L (98-107); POTASSIUM 4.3 mmol/L (3.5-5.1); SODIUM 134 mmol/L (136-145)
[2017-06-15 08:34] LABS: ALK PHOS 67 U/L (45-117); ANION GAP 12 (8-16); BILIRUBIN,TOTAL 0.8 mg/dL (0.2-1.0); CALCIUM 8.8 mg/dL (8.5-10.1); CO2 27 mmol/L (21-32); CREATININE 1.2 mg/dL (0.55-1.02); GLUCOSE,RANDOM 229 mg/dL (74-106); SGOT/AST 14 U/L (15-37); SGPT/ALT 14 U/L (12-78); TOT PROT 5.9 g/dl (6.4-8.2)
[2017-06-15] MEDS: HEPARIN NA (PORCINE) 5,000 UNITS/ML 1ML VIAL SQ SCH ×2 (09:21→21:18)
[2017-06-15] MEDS: ASPIRIN COATED 81 MG TABLET.EC PO SCH (09:22)
[2017-06-15] MEDS: MULTIVITAMINS (DAILY MVI) TABLET (FP) PO SCH (09:22)
[2017-06-15] MEDS: POLYETHYLENE GLYCOL 3350 119 GM BTL PO SCH (09:22)
[2017-06-15] MEDS: METOPROLOL TARTRATE 50 MG TABLET (FP) PO SCH ×2 (09:22→21:18)
[2017-06-15] MEDS: PANTOPRAZOLE 40 MG TABLET (FP) PO SCH (09:22)
[2017-06-15] MEDS: amLODIPine BESYLATE 10 MG TABLET (FP) PO SCH (09:22)
[2017-06-15] MEDS: CLOPIDOGREL BISULFATE 75 MG TABLET (FP) PO SCH (09:22)
--- NOTE | 2017-06-15 10:11 | PN ---
Progress Note (short form) - Note Progress Note: Subjective: The patient was seen and examined at the bedside, she reports feeling better today. Wheezing has improved Current Medications Generic Name Dose Route Start Last Admin Trade Name Dhiraj PRN Reason Stop Dose Admin Acetaminophen 650 mg 06/13/17 19:30 Tylenol - PO Q6H PRN FEVER Albuterol Sulfate 1 amp 06/14/17 08:36 Ventolin 0.083% Nebulizer Soln - NEB Q4H PRN SHORT OF BREATH/WHEEZING Albuterol/Ipratropium 1 amp 06/13/17 20:00 06/15/17 08:00 Duoneb - NEB 1 amp RQID SILVA Administration Amlodipine Besylate 10 mg 06/14/17 10:00 06/15/17 09:22 Norvasc - PO 10 mg DAILY SILVA Administration Artificial Tears 1 drop 06/13/17 22:00 06/15/17 06:13 Artificial Tears OD 1 drop TID SILVA Administration Aspirin 81 mg 06/14/17 10:00 06/15/17 09:22 Ecotrin - PO 81 mg DAILY SILVA Administration Clopidogrel Bisulfate 75 mg 06/14/17 10:00 06/15/17 09:22 Plavix - PO 75 mg DAILY SILVA Administration Docusate Sodium 100 mg 06/13/17 22:00 06/14/17 21:39 Colace - PO 100 mg HS SILVA Administration Furosemide 40 mg 06/15/17 10:09 Lasix Injection - IVPUSH 06/15/17 10:10 ONCE ONE Heparin Sodium (Porcine) 5,000 unit 06/13/17 22:00 06/15/17 09:21 Heparin - SQ 5,000 unit BID SILVA Administration Piperacillin Sod/Tazobactam 50 mls @ 100 mls/hr 06/14/17 02:00 06/15/17 09:21 Sod 3.375 gm/ Dextrose IVPB 100 mls/hr Q8H-IV SILVA Administration Protocol Insulin Aspart 1 vial 06/13/17 22:00 06/15/17 06:14 Novolog Vial Sliding Scale - SQ 4 units ACHS SILVA Administration Protocol Insulin Detemir 10 units 06/13/17 22:00 06/14/17 21:38 Levemir Vial SQ 10 units HS SILVA Administration Methylprednisolone Sodium Succinate 40 mg 06/14/17 03:00 06/15/17 09:21 Solu-Medrol - IVPUSH 40 mg Q6H-IV SILVA Administration Metoprolol Tartrate 100 mg 06/13/17 22:00 06/15/17 09:22 Lopressor - PO 100 mg BID SILVA Administration Multivitamins/Minerals/Vitamin C 1 tab 06/14/17 10:00 06/15/17 09:22 Tab-A-Vit - PO 1 tab DAILY SILVA Administration Pantoprazole Sodium 40 mg 06/14/17 10:00 06/15/17 09:22 Protonix - PO 40 mg DAILY SILVA Administration Polyethylene Glycol 17 gm 06/14/17 10:00 06/15/17 09:22 Miralax (For Daily Use) - PO 17 gm DAILY SILVA Administration Objective: Vital Signs Period Temp Pulse Resp BP Sys/Araiza Pulse Ox Last 24 Hr 97.9 F-98.8 F 61-94 19-20 135-148/55-79 98 Physical Exam: General: NAD Lungs: B/l end expiratory wheezing Heart: RRR, S1S2 Abd: Soft, non-tender, non-distended Ext: Warm, well-perfused CBCD WBC 8.3 K/mm3 (4.0-10.0) 06/15/17 06:00 RBC 3.89 M/mm3 (3.60-5.2) 06/15/17 06:00 Hgb 11.0 GM/dL (10.7-15.3) 06/15/17 06:00 Hct 32.7 % (32.4-45.2) 06/15/17 06:00 MCV 83.9 fl (80-96) 06/15/17 06:00 MCHC 33.7 g/dl (32.0-36.0) 06/15/17 06:00 RDW 14.8 % (11.6-15.6) 06/15/17 06:00 Plt Count 202 K/MM3 (134-434) 06/15/17 06:00 MPV 8.8 fl (7.5-11.1) 06/15/17 06:00 CMP Sodium 134 mmol/L (136-145) L 06/15/17 06:00 Potassium 4.3 mmol/L (3.5-5.1) 06/15/17 06:00 Chloride 95 mmol/L (98-107) L 06/15/17 06:00 Carbon Dioxide 27 mmol/L (21-32) 06/15/17 06:00 Anion Gap 12 (8-16) 06/15/17 06:00 BUN 30 mg/dL (7-18) H 06/15/17 06:00 Creatinine 1.2 mg/dL (0.55-1.02) H 06/15/17 06:00 Creat Clearance w eGFR 42.30 (>60) 06/15/17 06:00 Random Glucose 229 mg/dL (74-106) H 06/15/17 06:00 Calcium 8.8 mg/dL (8.5-10.1) 06/15/17 06:00 Total Bilirubin 0.8 mg/dL (0.2-1.0) D 06/15/17 06:00 AST 14 U/L (15-37) L 06/15/17 06:00 ALT 14 U/L (12-78) 06/15/17 06:00 Alkaline Phosphatase 67 U/L (45-117) 06/15/17 06:00 Total Protein 5.9 g/dl (6.4-8.2) L 06/15/17 06:00 Albumin 2.9 g/dl (3.4-5.0) L 06/15/17 06:00 CARDIAC ENZYMES Troponin I < 0.02 ng/ml (0.00-0.05) 06/14/17 03:30 Microbiology 06/13/17 15:30 Urine - Urine Clean Catch Urine Culture - Final NO GROWTH OBTAINED 06/13/17 13:45 Blood - Peripheral Venous Blood Culture - Preliminary NO GROWTH OBTAINED AFTER 24 HOURS, INCUBATION TO CONTINUE FOR 4 DAYS. 06/13/17 13:30 Blood - Peripheral Venous Blood Culture - Preliminary NO GROWTH OBTAINED AFTER 24 HOURS, INCUBATION TO CONTINUE FOR 4 DAYS. 06/14/17 00:05 Nasopharyngeal Swab Influenza Types A,B Antigen (VEE) - Final 06/14/17 00:05 Nasopharyngeal Swab - Final Assessment: This is an 89 year old female with PMHx of CAD (with stents), DM, HTN, hyperlipidemia, CKD, OA, macular degeneration, who presented to the ED with worsening cough and shortness of breath. Plan: 1) B/l pleural effusions - Acute diastolic CHF exacerbation - Chest CT with pulmonary vascular congestion - ECHO reviewed - Elevated BNP - Continue IV lasix - Strict I&O - Daily weights - F/u cardiology consult 2) Pneumonia - Failed outpatient abx therapy - Continue Zosyn - Appreciate ID consult 3) Acute COPD exacerbation - Continue Solu-medrol 40mg IVP q6h - Duonebs qid - Albuterol nebs q4h - Chest CT reviewed - Appreciate pulmonary consult 4) DM - BGM ACHS - ISS ACHS - Levemir 10u sq hs 5) CAD s/p stenting - Continue ASA - Continue Plavix 6) CKD - Cr ~baseline 7) F/E/N: - Diabetic diet 8) Prophylaxis: - Heparin 5,000u sq bid - PT 9) Dispo: - Requires continued inpatient care CODE STATUS: FULL CODE Visit type - Emergency Visit Emergency Visit: Yes ED Registration Date: 06/13/17 Care time: The patient presented to the Emergency Department on the above date and was hospitalized for further evaluation of their emergent condition. - New Patient This patient is new to me today: No - Critical Care Critical Care patient: No
[2017-06-15] MEDS ORDERED: INSULIN (NOVOLOG) ASPART 100 UNITS/ML 10ML VIAL ONE (10:43)
--- NOTE | 2017-06-15 10:43 | PN ---
Progress Note (short form) - Note Progress Note: PULMONARY Breathing better today. Less coughing but still some wheezing. No fevers recorded. CT chest reviewed showing RLL infiltrate and bilateral effusions with compressive atelectasis. Last Vital Signs Temp Pulse Resp BP Pulse Ox 98 F 68 19 140/56 98 06/15/17 09:18 06/15/17 09:18 06/15/17 09:18 06/15/17 09:18 06/14/17 21:00 Intake & Output 06/12/17 06/13/17 06/14/17 06/15/17 23:59 23:59 23:59 23:59 Intake Total 400 1050 Balance 400 1050 Weight 54.431 kg 69.4 kg 69.49 kg Gen: NAD at rest Heart: RRR, +systolic murmur Lung: bilateral wheezes, rhonchi Abd: soft, nontender Ext: no edema CBC, BMP 06/15/17 06:00 06/15/17 06:00 Active Medications Acetaminophen (Tylenol -) 650 mg PO Q6H PRN PRN Reason: FEVER Albuterol Sulfate (Ventolin 0.083% Nebulizer Soln -) 1 amp NEB Q4H PRN PRN Reason: SHORT OF BREATH/WHEEZING Albuterol/Ipratropium (Duoneb -) 1 amp NEB RQID [facility] Last Admin: 06/15/17 08:00 Dose: 1 amp Amlodipine Besylate (Norvasc -) 10 mg PO DAILY [facility] Last Admin: 06/15/17 09:22 Dose: 10 mg Artificial Tears (Artificial Tears) 1 drop OD TID [facility] Last Admin: 06/15/17 06:13 Dose: 1 drop Aspirin (Ecotrin -) 81 mg PO DAILY [facility] Last Admin: 06/15/17 09:22 Dose: 81 mg Clopidogrel Bisulfate (Plavix -) 75 mg PO DAILY [facility] Last Admin: 06/15/17 09:22 Dose: 75 mg Docusate Sodium (Colace -) 100 mg PO HS [facility] Last Admin: 06/14/17 21:39 Dose: 100 mg Furosemide (Lasix Injection -) 40 mg IVPUSH ONCE ONE Stop: 06/15/17 10:46 Heparin Sodium (Porcine) (Heparin -) 5,000 unit SQ BID [facility] Last Admin: 06/15/17 09:21 Dose: 5,000 unit Piperacillin Sod/Tazobactam (Sod 3.375 gm/ Dextrose) 50 mls @ 100 mls/hr IVPB Q8H-IV SILVA PRN Reason: Protocol Last Admin: 06/15/17 09:21 Dose: 100 mls/hr Insulin Aspart (Novolog Vial Sliding Scale -) 1 vial SQ ACHS SILVA PRN Reason: Protocol Last Admin: 06/15/17 06:14 Dose: 4 units Insulin Detemir (Levemir Vial) 10 units SQ HS [facility] Last Admin: 06/14/17 21:38 Dose: 10 units Methylprednisolone Sodium Succinate (Solu-Medrol -) 40 mg IVPUSH Q6H-IV SILVA Last Admin: 06/15/17 09:21 Dose: 40 mg Metoprolol Tartrate (Lopressor -) 100 mg PO BID [facility] Last Admin: 06/15/17 09:22 Dose: 100 mg Multivitamins/Minerals/Vitamin C (Tab-A-Vit -) 1 tab PO DAILY SILVA Last Admin: 06/15/17 09:22 Dose: 1 tab Pantoprazole Sodium (Protonix -) 40 mg PO DAILY [facility] Last Admin: 06/15/17 09:22 Dose: 40 mg Polyethylene Glycol (Miralax (For Daily Use) -) 17 gm PO DAILY [facility] Last Admin: 06/15/17 09:22 Dose: 17 gm A/P Pneumonia Acute on Chronic Diastolic Heart Failure Pulmonary HTN CAD Acute Kidney Injury HTN DM - continue antibiotics - f/u cultures - would continue medrol but will decrease frequency - agree with lasix - monitor urine output, creatinine - glucose control while on systemic steroids - O2 to keep SpO2 >90% - DVT prophylaxis
[2017-06-15] MEDS ORDERED: FUROSEMIDE 40 MG/4 ML INJECTABLE VIAL IVPUSH ONE (10:45)
--- NOTE | 2017-06-15 11:31 | PN ---
Progress Note, Physician History of Present Illness: patient starting to feel much better still with cough - Current Medication List Current Medications: Active Medications Acetaminophen (Tylenol -) 650 mg PO Q6H PRN PRN Reason: FEVER Albuterol Sulfate (Ventolin 0.083% Nebulizer Soln -) 1 amp NEB Q4H PRN PRN Reason: SHORT OF BREATH/WHEEZING Albuterol/Ipratropium (Duoneb -) 1 amp NEB RQID [facility] Last Admin: 06/15/17 11:22 Dose: 1 amp Amlodipine Besylate (Norvasc -) 10 mg PO DAILY [facility] Last Admin: 06/15/17 09:22 Dose: 10 mg Artificial Tears (Artificial Tears) 1 drop OD TID [facility] Last Admin: 06/15/17 06:13 Dose: 1 drop Aspirin (Ecotrin -) 81 mg PO DAILY [facility] Last Admin: 06/15/17 09:22 Dose: 81 mg Clopidogrel Bisulfate (Plavix -) 75 mg PO DAILY [facility] Last Admin: 06/15/17 09:22 Dose: 75 mg Docusate Sodium (Colace -) 100 mg PO HS [facility] Last Admin: 06/14/17 21:39 Dose: 100 mg Heparin Sodium (Porcine) (Heparin -) 5,000 unit SQ BID [facility] Last Admin: 06/15/17 09:21 Dose: 5,000 unit Piperacillin Sod/Tazobactam (Sod 3.375 gm/ Dextrose) 50 mls @ 100 mls/hr IVPB Q8H-IV [facility] PRN Reason: Protocol Last Admin: 06/15/17 09:21 Dose: 100 mls/hr Insulin Aspart (Novolog Vial Sliding Scale -) 1 vial SQ ACHS [facility] PRN Reason: Protocol Last Admin: 06/15/17 06:14 Dose: 4 units Insulin Detemir (Levemir Vial) 10 units SQ HS [facility] Last Admin: 06/14/17 21:38 Dose: 10 units Methylprednisolone Sodium Succinate (Solu-Medrol -) 40 mg IVPUSH Q8H-IV [facility] Metoprolol Tartrate (Lopressor -) 100 mg PO BID [facility] Last Admin: 06/15/17 09:22 Dose: 100 mg Multivitamins/Minerals/Vitamin C (Tab-A-Vit -) 1 tab PO DAILY [facility] Last Admin: 06/15/17 09:22 Dose: 1 tab Pantoprazole Sodium (Protonix -) 40 mg PO DAILY [facility] Last Admin: 06/15/17 09:22 Dose: 40 mg Polyethylene Glycol (Miralax (For Daily Use) -) 17 gm PO DAILY [facility] Last Admin: 06/15/17 09:22 Dose: 17 gm - Objective Vital Signs: Vital Signs Temperature 98 F 06/15/17 09:18 Pulse Rate 68 06/15/17 09:18 Respiratory Rate 19 06/15/17 09:18 Blood Pressure 140/56 06/15/17 09:18 O2 Sat by Pulse Oximetry (%) 98 06/14/17 21:00 Constitutional: Yes: No Distress, Calm Cardiovascular: Yes: Regular Rate and Rhythm Respiratory: Yes: Regular, On Nasal O2, Poor Air Entry Gastrointestinal: Yes: Normal Bowel Sounds, Soft Musculoskeletal: Yes: WNL Extremities: Yes: WNL Neurological: Yes: Alert, Oriented Psychiatric: Yes: Alert, Oriented Labs: CBC, BMP 06/15/17 06:00 06/15/17 06:00 INR, PTT INR 1.06 (0.82-1.09) 06/13/17 15:06 - ....Imaging Chest X-ray: Report Reviewed, Image Reviewed Assessment/Plan patient with multiple medical problems admitted for pneumonia given vanco and zosyn in the er now improving pna dm hyperlipidemia cough sob plan we will continue zosyn cx result noted rest continue current mgmt incentive isabela
--- NOTE | 2017-06-15 14:15 | CON.CARD ---
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 She presented to the ED with worsening cough and mild shortness of breath, fever and sputum. Found with infiltrate and CHF on CT scan. 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 History of Recent Travel: No Home Medications - Allergies Allergies/Adverse Reactions: Allergies Allergy/AdvReac Type Severity Reaction Status Date / Time Sulfa (Sulfonamide Allergy Verified 06/13/17 14:09 Antibiotics) - Home Medications Home Medications: Ambulatory Orders Acetaminophen [Tylenol .Extra-Strength -] 1,000 mg PO Q12H 11/20/16 Amlodipine Besylate [Norvasc -] 10 mg PO DAILY 11/20/16 Aspirin [Aspirin EC] 81 mg PO DAILY 11/20/16 Cholecalciferol (Vitamin D3) [Vitamin D3] 50,000 cap PO MONTHLY 11/20/16 Clopidogrel Bisulfate [Plavix -] 75 mg PO DAILY 11/20/16 Cyanocobalamin (Vitamin B-12) [Cyanocobalamin Injection] 1,000 mcg IM MONTHLY Docusate Sodium [Colace -] 100 mg PO HS 11/20/16 Metoprolol Tartrate 100 mg PO BID 11/20/16 Multivitamin [One Daily] 1 tablet PO DAILY 11/20/16 Pen Needle, Diabetic, Safety [Novofine Autocover] 1 each MC TID 11/20/16 Polyethylene Glycol 3350 [Miralax 119 gm Btl -] 17 gm PO DAILY 11/20/16 Polyvinyl Alcohol [Artificial Tears] 1 drop OD TID 11/20/16 Insulin (Levemir) [Levemir Vial] 15 units SQ HS #1 vial 11/21/16 Insulin Sliding Scale [Novolog Vial Sliding Scale -] 1 vial SQ ACHS units 11/21 Insulin Sliding Scale [Novolog Vial Sliding Scale -] 1 vial SQ ACHS units 11/21 Review of Systems - Review of Systems Constitutional: reports: Fever Eyes: reports: No Symptoms, Floaters HENT: reports: No Symptoms Neck: reports: No Symptoms Cardiovascular: reports: Shortness of Breath Respiratory: reports: Cough Gastrointestinal: reports: No Symptoms Genitourinary: reports: No Symptoms Vital Signs: Vital Signs Temperature 98 F 06/15/17 09:18 Pulse Rate 68 06/15/17 09:18 Respiratory Rate 19 06/15/17 09:18 Blood Pressure 140/56 06/15/17 09:18 O2 Sat by Pulse Oximetry (%) 98 06/15/17 09:20 Constitutional: Yes: No Distress, Calm Eyes: Yes: Conjunctiva Clear, EOM Intact HENT: Yes: Atraumatic, Normocephalic Neck: Yes: Trachea Midline Respiratory: Yes: Rales (bilateral bases) Gastrointestinal: Yes: Normal Bowel Sounds, Soft Cardiovascular: Yes: Regular Rate and Rhythm JVD: Yes Carotid Bruit: No PMI: Non-Displaced Heart Sounds: Yes: S1, S2 Murmur: Yes: Systolic Murmur, Grade 2 Musculoskeletal: Yes: WNL Edema: No Peripheral Pulses WNL: Yes - Other Data Labs, Other Data: CBC, BMP 06/15/17 06:00 06/15/17 06:00 INR, PTT INR 1.06 (0.82-1.09) 06/13/17 15:06 Troponin, BNP 06/14/17 18:00 B-Natriuretic Peptide 9732.52 H Troponin, BNP 06/14/17 18:00 B-Natriuretic Peptide 9732.52 H Imaging - Results Chest X-ray: Report Reviewed (bilat effusions.) EKG: Report Reviewed (nsr old septal mi) Problem List - Problems (1) CHF (congestive heart failure) Assessment/Plan: would diurese with IV lasix for now, follow weights. Fluid restriction 2 liters, 2 gm NA diet. Code(s): I50.9 - HEART FAILURE, UNSPECIFIED Qualifiers: Heart failure type: diastolic Heart failure chronicity: acute on chronic Qualified Code(s): I50.33 - Acute on chronic diastolic (congestive) heart failure (2) CAD (coronary artery disease) Assessment/Plan: stable on medications. No need for testing at this time. Code(s): I25.10 - ATHSCL HEART DISEASE OF [place] CORONARY ARTERY W/O ANG PCTRS Qualifiers: Coronary Disease-Associated Artery/Lesion type: [place] coronary artery [place] vs. transplanted heart: [place] heart Associated angina: without angina pectoris
[2017-06-15] MEDS: DOCUSATE SODIUM 100 MG CAPSULE (FP) PO SCH (21:18)
[2017-06-15] MEDS: INSULIN DETEMIR 100 UNITS/ML MDV SQ SCH (21:22)
[2017-06-15] MEDS ORDERED: PT OWN MED DRAWER 7, Y5N ONE (21:26)
[2017-06-16] MEDS ORDERED: PIPERACILLIN/TAZOBACTAM 3.375 GM VIAL IVPB ONE ×3 (02:17→17:47)
[2017-06-16] MEDS ORDERED: DEXTROSE 5%-WATER 100 ML IVPB ONE ×3 (02:18→17:47)
[2017-06-16] MEDS: DEXTROSE 5% IVPB SCH ×3 (02:34→17:52)
[2017-06-16] MEDS: PIPERACILLIN IVPB SCH ×3 (02:34→17:52)
[2017-06-16] MEDS: WATER IVPB SCH ×3 (02:34→17:52)
[2017-06-16] MEDS: TAZOB IVPB SCH ×3 (02:34→17:52)
[2017-06-16] MEDS: methylPREDNISolone NA SUCC 40 MG/1 ML VIAL IVPUSH SCH ×3 (02:35→17:52)
[2017-06-16] MEDS: FUROSEMIDE 40 MG/4 ML INJECTABLE VIAL IVPUSH SCH ×2 (06:01→14:16)
[2017-06-16] MEDS: ARTIFICIAL TEARS (POLYVINYL ALCOHOL 1.4%) OPTH DROPS OD SCH ×3 (06:01→21:14)
[2017-06-16] MEDS: INSULIN SLIDING SCALE (NOVOLOG) 1 VIAL SQ SCH ×4 (06:02→21:17)
[2017-06-16] MEDS: amLODIPine BESYLATE 10 MG TABLET (FP) PO SCH ×2 (06:37→11:18)
[2017-06-16] MEDS: ALBUTEROL SO4 2.5/IPRATROPIUM 0.5 INH SOL 3 ML VIAL.NEB. NEB SCH ×4 (07:15→20:24)
[2017-06-16 08:35] LABS: ALBUMIN 2.9 g/dl (3.4-5.0); ANION GAP 14 (8-16); BLOOD UREA NITROGEN 33 mg/dL (7-18); CALCIUM 8.8 mg/dL (8.5-10.1); CHLORIDE 92 mmol/L (98-107); CO2 28 mmol/L (21-32); CREATININE 1.3 mg/dL (0.55-1.02); GLUCOSE,RANDOM 202 mg/dL (74-106); POTASSIUM 4.3 mmol/L (3.5-5.1); SGOT/AST 25 U/L (15-37); SGPT/ALT 22 U/L (12-78); SODIUM 134 mmol/L (136-145)
[2017-06-16 08:36] LABS: ALK PHOS 73 U/L (45-117); BILIRUBIN,TOTAL 0.7 mg/dL (0.2-1.0)
--- NOTE | 2017-06-16 09:23 | PN ---
Progress Note (short form) - Note Progress Note: Subjective: The patient was seen and examined at the bedside, she reports feeling better today Current Medications Generic Name Dose Route Start Last Admin Trade Name Freq PRN Reason Stop Dose Admin Acetaminophen 650 mg 06/13/17 19:30 Tylenol - PO Q6H PRN FEVER Albuterol Sulfate 1 amp 06/14/17 08:36 06/16/17 06:02 Ventolin 0.083% Nebulizer Soln - NEB 1 amp Q4H PRN Administration SHORT OF BREATH/WHEEZING Albuterol/Ipratropium 1 amp 06/13/17 20:00 06/16/17 07:15 Duoneb - NEB 1 amp RQID SILVA Administration Amlodipine Besylate 10 mg 06/14/17 10:00 06/16/17 06:37 Norvasc - PO 10 mg DAILY SILVA Administration Artificial Tears 1 drop 06/13/17 22:00 06/16/17 06:01 Artificial Tears OD 1 drop TID SILVA Administration Aspirin 81 mg 06/14/17 10:00 06/15/17 09:22 Ecotrin - PO 81 mg DAILY [facility] Administration Clopidogrel Bisulfate 75 mg 06/14/17 10:00 06/15/17 09:22 Plavix - PO 75 mg DAILY [facility]ILVA Administration Docusate Sodium 100 mg 06/13/17 22:00 06/15/17 21:18 Colace - PO Not Given HS SILVA Furosemide 40 mg 06/16/17 06:00 06/16/17 06:01 Lasix Injection - IVPUSH 40 mg BID@0600,1400 SILVA Administration Heparin Sodium (Porcine) 5,000 unit 06/13/17 22:00 06/15/17 21:18 Heparin - SQ 5,000 unit BID [facility]IL[facility] Administration Piperacillin Sod/Tazobactam 50 mls @ 100 mls/hr 06/14/17 02:00 06/16/17 02:34 Sod 3.375 gm/ Dextrose IVPB 100 mls/hr Q8H-IV [facility]IL[facility] Administration Protocol Insulin Aspart 1 vial 06/13/17 22:00 06/16/17 06:02 Novolog Vial Sliding Scale - SQ 4 units ACHS SILVA Administration Protocol Insulin Detemir 10 units 06/13/17 22:00 06/15/17 21:22 Levemir Vial SQ 10 units HS [facility]IL[facility] Administration Methylprednisolone Sodium Succinate 40 mg 06/15/17 18:00 06/16/17 02:35 Solu-Medrol - IVPUSH 40 mg Q8H-IV [facility] Administration Metoprolol Tartrate 100 mg 06/13/17 22:00 06/15/17 21:18 Lopressor - PO 100 mg BID [facility]ILVA Administration Multivitamins/Minerals/Vitamin C 1 tab 06/14/17 10:00 06/15/17 09:22 Tab-A-Vit - PO 1 tab DAILY [facility] Administration Pantoprazole Sodium 40 mg 06/14/17 10:00 06/15/17 09:22 Protonix - PO 40 mg DAILY [facility] Administration Polyethylene Glycol 17 gm 06/14/17 10:00 06/15/17 09:22 Miralax (For Daily Use) - PO 17 gm DAILY [facility] Administration Objective: Vital Signs Period Temp Pulse Resp BP Sys/Araiza Pulse Ox Last 24 Hr 97.9 F-98.3 F 56-68 20-20 144-181/55-76 97 Physical Exam: General: NAD Lungs: B/l expiratory wheezing Heart: RRR, S1S2 Abd: Soft, non-tender, non-distended Ext: Warm, well-perfused CBCD WBC 8.3 K/mm3 (4.0-10.0) 06/15/17 06:00 RBC 3.89 M/mm3 (3.60-5.2) 06/15/17 06:00 Hgb 11.0 GM/dL (10.7-15.3) 06/15/17 06:00 Hct 32.7 % (32.4-45.2) 06/15/17 06:00 MCV 83.9 fl (80-96) 06/15/17 06:00 MCHC 33.7 g/dl (32.0-36.0) 06/15/17 06:00 RDW 14.8 % (11.6-15.6) 06/15/17 06:00 Plt Count 202 K/MM3 (134-434) 06/15/17 06:00 MPV 8.8 fl (7.5-11.1) 06/15/17 06:00 CMP Sodium 134 mmol/L (136-145) L 06/16/17 07:15 Potassium 4.3 mmol/L (3.5-5.1) 06/16/17 07:15 Chloride 92 mmol/L (98-107) L 06/16/17 07:15 Carbon Dioxide 28 mmol/L (21-32) 06/16/17 07:15 Anion Gap 14 (8-16) 06/16/17 07:15 BUN 33 mg/dL (7-18) H 06/16/17 07:15 Creatinine 1.3 mg/dL (0.55-1.02) H 06/16/17 07:15 Creat Clearance w eGFR 38.57 (>60) 06/16/17 07:15 Random Glucose 202 mg/dL (74-106) H 06/16/17 07:15 Calcium 8.8 mg/dL (8.5-10.1) 06/16/17 07:15 Total Bilirubin 0.7 mg/dL (0.2-1.0) 06/16/17 07:15 AST 25 U/L (15-37) 06/16/17 07:15 ALT 22 U/L (12-78) 06/16/17 07:15 Alkaline Phosphatase 73 U/L (45-117) 06/16/17 07:15 Total Protein 6.0 g/dl (6.4-8.2) L 06/16/17 07:15 Albumin 2.9 g/dl (3.4-5.0) L 06/16/17 07:15 CARDIAC ENZYMES Troponin I < 0.02 ng/ml (0.00-0.05) 06/14/17 03:30 Microbiology 06/13/17 13:45 Blood - Peripheral Venous Blood Culture - Preliminary NO GROWTH OBTAINED AFTER 48 HOURS, INCUBATION TO CONTINUE FOR 3 DAYS. 06/13/17 13:30 Blood - Peripheral Venous Blood Culture - Preliminary NO GROWTH OBTAINED AFTER 48 HOURS, INCUBATION TO CONTINUE FOR 3 DAYS. 06/13/17 15:30 Urine - Urine Clean Catch Urine Culture - Final NO GROWTH OBTAINED 06/14/17 00:05 Nasopharyngeal Swab Influenza Types A,B Antigen (VEE) - Final 06/14/17 00:05 Nasopharyngeal Swab - Final Assessment: This is an 89 year old female with PMHx of CAD (with stents), DM, HTN, hyperlipidemia, CKD, OA, macular degeneration, who presented to the ED with worsening cough and shortness of breath. Plan: 1) B/l pleural effusions - Acute diastolic CHF exacerbation - Chest CT with pulmonary vascular congestion - ECHO reviewed - Elevated BNP - Continue IV lasix bid - Strict I&O - Daily weights - Appreciate cardiology consult 2) Pneumonia - Failed outpatient abx therapy - Continue Zosyn - Appreciate ID consult 3) Acute COPD exacerbation - Continue Solu-medrol 40mg IVP q8h - Duonebs qid - Albuterol nebs q4h - Chest CT reviewed - Appreciate pulmonary consult 4) HTN - Continue Norvasc - Continue Metoprolol 5) DM - BGM ACHS - ISS ACHS - Levemir 10u sq hs 6) CAD s/p stenting - Continue ASA - Continue Plavix 7) CKD - Cr ~baseline 8) F/E/N: - Diabetic diet 9) Prophylaxis: - Heparin 5,000u sq bid - PT 10) Dispo: - Requires continued inpatient care CODE STATUS: FULL CODE Visit type - Emergency Visit Emergency Visit: Yes ED Registration Date: 06/13/17 Care time: The patient presented to the Emergency Department on the above date and was hospitalized for further evaluation of their emergent condition. - New Patient This patient is new to me today: No - Critical Care Critical Care patient: No
[2017-06-16] MEDS: POLYETHYLENE GLYCOL 3350 119 GM BTL PO SCH (10:00)
[2017-06-16] MEDS: CLOPIDOGREL BISULFATE 75 MG TABLET (FP) PO SCH (10:54)
[2017-06-16] MEDS: METOPROLOL TARTRATE 50 MG TABLET (FP) PO SCH ×2 (10:54→21:17)
[2017-06-16] MEDS: HEPARIN NA (PORCINE) 5,000 UNITS/ML 1ML VIAL SQ SCH ×2 (10:54→21:14)
[2017-06-16] MEDS: PANTOPRAZOLE 40 MG TABLET (FP) PO SCH (10:54)
[2017-06-16] MEDS: ASPIRIN COATED 81 MG TABLET.EC PO SCH (10:54)
[2017-06-16] MEDS: MULTIVITAMINS (DAILY MVI) TABLET (FP) PO SCH (10:54)
[2017-06-16] MEDS ORDERED: INSULIN (NOVOLOG) ASPART 100 UNITS/ML 10ML VIAL ONE ×2 (12:12→18:47)
--- NOTE | 2017-06-16 14:06 | PN ---
Progress Note, Physician History of Present Illness: feeling better c/o of sore throat dry cough - Current Medication List Current Medications: Active Medications Acetaminophen (Tylenol -) 650 mg PO Q6H PRN PRN Reason: FEVER Albuterol Sulfate (Ventolin 0.083% Nebulizer Soln -) 1 amp NEB Q4H PRN PRN Reason: SHORT OF BREATH/WHEEZING Last Admin: 06/16/17 06:02 Dose: 1 amp Albuterol/Ipratropium (Duoneb -) 1 amp NEB RQID [facility] Last Admin: 06/16/17 11:51 Dose: 1 amp Amlodipine Besylate (Norvasc -) 10 mg PO DAILY [facility] Last Admin: 06/16/17 11:18 Dose: Not Given Artificial Tears (Artificial Tears) 1 drop OD TID [facility] Last Admin: 06/16/17 06:01 Dose: 1 drop Aspirin (Ecotrin -) 81 mg PO DAILY [facility] Last Admin: 06/16/17 10:54 Dose: 81 mg Clopidogrel Bisulfate (Plavix -) 75 mg PO DAILY [facility] Last Admin: 06/16/17 10:54 Dose: 75 mg Docusate Sodium (Colace -) 100 mg PO HS [facility] Last Admin: 06/15/17 21:18 Dose: Not Given Furosemide (Lasix Injection -) 40 mg IVPUSH BID@0600,1400 [facility] Last Admin: 06/16/17 06:01 Dose: 40 mg Heparin Sodium (Porcine) (Heparin -) 5,000 unit SQ BID [facility] Last Admin: 06/16/17 10:54 Dose: 5,000 unit Piperacillin Sod/Tazobactam (Sod 3.375 gm/ Dextrose) 50 mls @ 100 mls/hr IVPB Q8H-IV [facility] PRN Reason: Protocol Last Admin: 06/16/17 10:53 Dose: 100 mls/hr Insulin Aspart (Novolog Vial Sliding Scale -) 1 vial SQ ACHS [facility] PRN Reason: Protocol Last Admin: 06/16/17 12:14 Dose: 8 units Insulin Detemir (Levemir Vial) 10 units SQ HS [facility] Last Admin: 06/15/17 21:22 Dose: 10 units Methylprednisolone Sodium Succinate (Solu-Medrol -) 40 mg IVPUSH Q8H-IV [facility] Last Admin: 06/16/17 10:54 Dose: 40 mg Metoprolol Tartrate (Lopressor -) 100 mg PO BID [facility] Last Admin: 06/16/17 10:54 Dose: 100 mg Multivitamins/Minerals/Vitamin C (Tab-A-Vit -) 1 tab PO DAILY [facility] Last Admin: 06/16/17 10:54 Dose: 1 tab Pantoprazole Sodium (Protonix -) 40 mg PO DAILY [facility] Last Admin: 06/16/17 10:54 Dose: 40 mg Polyethylene Glycol (Miralax (For Daily Use) -) 17 gm PO DAILY [facility] Last Admin: 06/16/17 10:00 Dose: 17 gm - Objective Vital Signs: Vital Signs Temperature 97.8 F 06/16/17 09:36 Pulse Rate 75 06/16/17 09:36 Respiratory Rate 18 06/16/17 09:36 Blood Pressure 154/86 06/16/17 09:36 O2 Sat by Pulse Oximetry (%) 97 06/15/17 20:34 Constitutional: Yes: No Distress, Calm Cardiovascular: Yes: Regular Rate and Rhythm Respiratory: Yes: Regular, Poor Air Entry Gastrointestinal: Yes: Normal Bowel Sounds, Soft Musculoskeletal: Yes: WNL Extremities: Yes: WNL Neurological: Yes: Alert, Oriented Psychiatric: Yes: Alert, Oriented Labs: CBC, BMP 06/15/17 06:00 06/16/17 07:15 INR, PTT INR 1.06 (0.82-1.09) 06/13/17 15:06 Assessment/Plan patient with multiple medical problems admitted for pneumonia given vanco and zosyn in the er now improving pna dm hyperlipidemia cough sob plan we will continue zosyn for another 4 more days incentive isabela lozenges rest as per primary
--- NOTE | 2017-06-16 14:47 | PN ---
Progress Note, Physician Chief Complaint: less sob. less cough. 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 She presented to the ED with worsening cough and mild shortness of breath, fever and sputum. Found with infiltrate and CHF on CT scan. echo 06/14/17 nlef mild aortic stenosis - Current Medication List Current Medications: Active Medications Acetaminophen (Tylenol -) 650 mg PO Q6H PRN PRN Reason: FEVER Albuterol Sulfate (Ventolin 0.083% Nebulizer Soln -) 1 amp NEB Q4H PRN PRN Reason: SHORT OF BREATH/WHEEZING Last Admin: 06/16/17 06:02 Dose: 1 amp Albuterol/Ipratropium (Duoneb -) 1 amp NEB RQID [facility] Last Admin: 06/16/17 11:51 Dose: 1 amp Amlodipine Besylate (Norvasc -) 10 mg PO DAILY [facility] Last Admin: 06/16/17 11:18 Dose: Not Given Artificial Tears (Artificial Tears) 1 drop OD TID [facility] Last Admin: 06/16/17 14:16 Dose: 1 drop Aspirin (Ecotrin -) 81 mg PO DAILY [facility] Last Admin: 06/16/17 10:54 Dose: 81 mg Clopidogrel Bisulfate (Plavix -) 75 mg PO DAILY [facility] Last Admin: 06/16/17 10:54 Dose: 75 mg Docusate Sodium (Colace -) 100 mg PO HS [facility] Last Admin: 06/15/17 21:18 Dose: Not Given Furosemide (Lasix Injection -) 40 mg IVPUSH BID@0600,1400 [facility] Last Admin: 06/16/17 14:16 Dose: 40 mg Heparin Sodium (Porcine) (Heparin -) 5,000 unit SQ BID [facility] Last Admin: 06/16/17 10:54 Dose: 5,000 unit Piperacillin Sod/Tazobactam (Sod 3.375 gm/ Dextrose) 50 mls @ 100 mls/hr IVPB Q8H-IV [facility] PRN Reason: Protocol Last Admin: 06/16/17 10:53 Dose: 100 mls/hr Insulin Aspart (Novolog Vial Sliding Scale -) 1 vial SQ ACHS [facility] PRN Reason: Protocol Last Admin: 06/16/17 12:14 Dose: 8 units Insulin Detemir (Levemir Vial) 10 units SQ HS [facility] Last Admin: 06/15/17 21:22 Dose: 10 units Methylprednisolone Sodium Succinate (Solu-Medrol -) 40 mg IVPUSH Q8H-IV [facility] Last Admin: 06/16/17 10:54 Dose: 40 mg Metoprolol Tartrate (Lopressor -) 100 mg PO BID [facility] Last Admin: 06/16/17 10:54 Dose: 100 mg Multivitamins/Minerals/Vitamin C (Tab-A-Vit -) 1 tab PO DAILY [facility] Last Admin: 06/16/17 10:54 Dose: 1 tab Pantoprazole Sodium (Protonix -) 40 mg PO DAILY [facility] Last Admin: 06/16/17 10:54 Dose: 40 mg Polyethylene Glycol (Miralax (For Daily Use) -) 17 gm PO DAILY [facility] Last Admin: 06/16/17 10:00 Dose: 17 gm - Objective Vital Signs: Vital Signs Temperature 97.9 F 06/16/17 14:41 Pulse Rate 71 06/16/17 14:41 Respiratory Rate 20 06/16/17 14:41 Blood Pressure 153/86 06/16/17 14:41 O2 Sat by Pulse Oximetry (%) 97 06/15/17 20:34 Constitutional: Yes: No Distress, Calm Eyes: Yes: EOM Intact HENT: Yes: Normocephalic Neck: Yes: Trachea Midline Cardiovascular: Yes: Regular Rate and Rhythm Respiratory: Yes: Rales (scattered at right base. no wheeze) Gastrointestinal: Yes: Normal Bowel Sounds, Soft Musculoskeletal: Yes: WNL Extremities: Yes: WNL Edema: No Labs: CBC, BMP 06/15/17 06:00 06/16/17 07:15 INR, PTT INR 1.06 (0.82-1.09) 06/13/17 15:06 Problem List - Problems (1) CHF (congestive heart failure) Assessment/Plan: would diurese with IV lasix for now, follow weights. Fluid restriction 2 liters, 2 gm NA diet. Code(s): I50.9 - HEART FAILURE, UNSPECIFIED Qualifiers: Heart failure type: diastolic Heart failure chronicity: acute on chronic Qualified Code(s): I50.33 - Acute on chronic diastolic (congestive) heart failure (2) CAD (coronary artery disease) Assessment/Plan: stable on medications. No need for testing at this time. Code(s): I25.10 - ATHSCL HEART DISEASE OF [place] CORONARY ARTERY W/O ANG PCTRS Qualifiers: Coronary Disease-Associated Artery/Lesion type: [place] coronary artery [place] vs. transplanted heart: [place] heart Associated angina: without angina pectoris
--- NOTE | 2017-06-16 16:18 | PN ---
Progress Note, Physician History of Present Illness: pulmonary alert,nad,-sob,congestion - Current Medication List Current Medications: Active Medications Acetaminophen (Tylenol -) 650 mg PO Q6H PRN PRN Reason: FEVER Albuterol Sulfate (Ventolin 0.083% Nebulizer Soln -) 1 amp NEB Q4H PRN PRN Reason: SHORT OF BREATH/WHEEZING Last Admin: 06/16/17 06:02 Dose: 1 amp Albuterol/Ipratropium (Duoneb -) 1 amp NEB RQID [facility] Last Admin: 06/16/17 15:40 Dose: 1 amp Amlodipine Besylate (Norvasc -) 10 mg PO DAILY [facility] Last Admin: 06/16/17 11:18 Dose: Not Given Artificial Tears (Artificial Tears) 1 drop OD TID [facility] Last Admin: 06/16/17 14:16 Dose: 1 drop Aspirin (Ecotrin -) 81 mg PO DAILY [facility] Last Admin: 06/16/17 10:54 Dose: 81 mg Clopidogrel Bisulfate (Plavix -) 75 mg PO DAILY [facility] Last Admin: 06/16/17 10:54 Dose: 75 mg Docusate Sodium (Colace -) 100 mg PO HS [facility] Last Admin: 06/15/17 21:18 Dose: Not Given Furosemide (Lasix Injection -) 40 mg IVPUSH BID@0600,1400 [facility] Last Admin: 06/16/17 14:16 Dose: 40 mg Heparin Sodium (Porcine) (Heparin -) 5,000 unit SQ BID [facility] Last Admin: 06/16/17 10:54 Dose: 5,000 unit Piperacillin Sod/Tazobactam (Sod 3.375 gm/ Dextrose) 50 mls @ 100 mls/hr IVPB Q8H-IV [facility] PRN Reason: Protocol Last Admin: 06/16/17 10:53 Dose: 100 mls/hr Insulin Aspart (Novolog Vial Sliding Scale -) 1 vial SQ ACHS [facility] PRN Reason: Protocol Last Admin: 06/16/17 12:14 Dose: 8 units Insulin Detemir (Levemir Vial) 10 units SQ HS [facility] Last Admin: 06/15/17 21:22 Dose: 10 units Methylprednisolone Sodium Succinate (Solu-Medrol -) 40 mg IVPUSH Q8H-IV [facility] Last Admin: 06/16/17 10:54 Dose: 40 mg Metoprolol Tartrate (Lopressor -) 100 mg PO BID [facility] Last Admin: 06/16/17 10:54 Dose: 100 mg Multivitamins/Minerals/Vitamin C (Tab-A-Vit -) 1 tab PO DAILY [facility] Last Admin: 06/16/17 10:54 Dose: 1 tab Pantoprazole Sodium (Protonix -) 40 mg PO DAILY [facility] Last Admin: 06/16/17 10:54 Dose: 40 mg Polyethylene Glycol (Miralax (For Daily Use) -) 17 gm PO DAILY [facility] Last Admin: 06/16/17 10:00 Dose: 17 gm - Objective Vital Signs: Vital Signs Temperature 97.9 F 06/16/17 14:41 Pulse Rate 71 06/16/17 14:41 Respiratory Rate 20 06/16/17 14:41 Blood Pressure 153/86 06/16/17 14:41 O2 Sat by Pulse Oximetry (%) 97 06/15/17 20:34 Constitutional: Yes: Well Nourished, Calm Eyes: Yes: WNL HENT: Yes: WNL Neck: Yes: WNL Cardiovascular: Yes: Regular Rate and Rhythm, S1, S2 Respiratory: Yes: Rales (justyna rales) Gastrointestinal: Yes: Normal Bowel Sounds, Soft Extremities: Yes: WNL Edema: No Labs: CBC, BMP 06/15/17 06:00 06/16/17 07:15 INR, PTT INR 1.06 (0.82-1.09) 06/13/17 15:06 Problem List - Problems (1) Respiratory distress Code(s): R06.03 - ACUTE RESPIRATORY DISTRESS (2) Pneumonia Code(s): J18.9 - PNEUMONIA, UNSPECIFIED ORGANISM Qualifiers: Pneumonia type: due to unspecified organism Laterality: bilateral Lung location: unspecified part of lung Qualified Code(s): J18.9 - Pneumonia, unspecified organism (3) CAD (coronary artery disease) Code(s): I25.10 - ATHSCL HEART DISEASE OF [place] CORONARY ARTERY W/O ANG PCTRS Qualifiers: Coronary Disease-Associated Artery/Lesion type: [place] coronary artery [place] vs. transplanted heart: [place] heart Associated angina: without angina pectoris (4) Diabetes mellitus type 2, uncontrolled Code(s): E11.65 - TYPE 2 DIABETES MELLITUS WITH HYPERGLYCEMIA (5) History of coronary artery stent placement Code(s): Z95.5 - PRESENCE OF CORONARY ANGIOPLASTY IMPLANT AND GRAFT (6) Hyperlipidemia Code(s): E78.5 - HYPERLIPIDEMIA, UNSPECIFIED (7) Hypertension Code(s): I10 - ESSENTIAL (PRIMARY) HYPERTENSION Qualifiers: Hypertension type: essential hypertension Qualified Code(s): I10 - Essential (primary) hypertension (8) Acute kidney injury Code(s): N17.9 - ACUTE KIDNEY FAILURE, UNSPECIFIED Assessment/Plan IMP ACUTE RESPIRATORY DISTRESS BILATERAL PNEUMONIA CHF ASHD S/P STENT PULMONARY HTN HTN GABE PLAN IV ANTIBIOTICS INHALED BRONCHODILATORS O2 ANTI-TUSSIVES LASIX MONITOR LYTES,RENAL FUNCTION F/U CHEST X-RAYS DR RAMOS Problem List - Problems (1) Respiratory distress Code(s): R06.03 - ACUTE RESPIRATORY DISTRESS (2) Pneumonia Code(s): J18.9 - PNEUMONIA, UNSPECIFIED ORGANISM Qualifiers: Pneumonia type: due to unspecified organism Laterality: bilateral Lung location: unspecified part of lung Qualified Code(s): J18.9 - Pneumonia, unspecified organism (3) CAD (coronary artery disease) Code(s): I25.10 - ATHSCL HEART DISEASE OF [place] CORONARY ARTERY W/O ANG PCTRS Qualifiers: Coronary Disease-Associated Artery/Lesion type: [place] coronary artery [place] vs. transplanted heart: [place] heart Associated angina: without angina pectoris (4) Diabetes mellitus type 2, uncontrolled Code(s): E11.65 - TYPE 2 DIABETES MELLITUS WITH HYPERGLYCEMIA (5) History of coronary artery stent placement Code(s): Z95.5 - PRESENCE OF CORONARY ANGIOPLASTY IMPLANT AND GRAFT (6) Hyperlipidemia Code(s): E78.5 - HYPERLIPIDEMIA, UNSPECIFIED (7) Hypertension Code(s): I10 - ESSENTIAL (PRIMARY) HYPERTENSION Qualifiers: Hypertension type: essential hypertension Qualified Code(s): I10 - Essential (primary) hypertension (8) Acute kidney injury Code(s): N17.9 - ACUTE KIDNEY FAILURE, UNSPECIFIED
[2017-06-16] MEDS: DOCUSATE SODIUM 100 MG CAPSULE (FP) PO SCH (21:14)
[2017-06-16] MEDS: INSULIN DETEMIR 100 UNITS/ML MDV SQ SCH (21:15)
[2017-06-17] MEDS ORDERED: PIPERACILLIN/TAZOBACTAM 3.375 GM VIAL IVPB ONE ×3 (00:27→16:56)
[2017-06-17] MEDS ORDERED: DEXTROSE 5%-WATER 100 ML IVPB ONE ×3 (00:27→16:56)
[2017-06-17] MEDS: TAZOB IVPB SCH ×3 (01:00→18:09)
[2017-06-17] MEDS: PIPERACILLIN IVPB SCH ×3 (01:00→18:09)
[2017-06-17] MEDS: DEXTROSE 5% IVPB SCH ×3 (01:00→18:09)
[2017-06-17] MEDS: WATER IVPB SCH ×3 (01:00→18:09)
[2017-06-17] MEDS: methylPREDNISolone NA SUCC 40 MG/1 ML VIAL IVPUSH SCH ×3 (01:31→16:45)
[2017-06-17] MEDS: FUROSEMIDE 40 MG/4 ML INJECTABLE VIAL IVPUSH SCH ×2 (06:04→14:00)
[2017-06-17] MEDS: ARTIFICIAL TEARS (POLYVINYL ALCOHOL 1.4%) OPTH DROPS OD SCH ×3 (06:04→22:54)
[2017-06-17] MEDS ORDERED: INSULIN (NOVOLOG) ASPART 100 UNITS/ML 10ML VIAL ONE ×2 (06:26→10:24)
[2017-06-17] MEDS: amLODIPine BESYLATE 10 MG TABLET (FP) PO SCH ×2 (06:28→10:26)
[2017-06-17] MEDS: INSULIN SLIDING SCALE (NOVOLOG) 1 VIAL SQ SCH ×4 (06:28→22:53)
[2017-06-17 07:40] LABS: HEMATOCRIT 35.2 % (32.4-45.2); HEMOGLOBIN 11.9 GM/dL (10.7-15.3); MCH 28.3 pg (25.7-33.7); MCHC 33.8 g/dl (32.0-36.0); MEAN CELL VOLUME 83.7 fl (80-96); MEAN PLT VOLUME 9.5 fl (7.5-11.1); PLATELET COUNT 192 K/MM3 (134-434); RBC 4.21 M/mm3 (3.60-5.2); RDW 14.5 % (11.6-15.6); WHITE BLOOD COUNT 8.5 K/mm3 (4.0-10.0)
[2017-06-17 08:00] LABS: CHLORIDE 89 mmol/L (98-107); POTASSIUM 3.8 mmol/L (3.5-5.1); SODIUM 130 mmol/L (136-145)
[2017-06-17 08:15] LABS: ANION GAP 8 (8-16); BLOOD UREA NITROGEN 44 mg/dL (7-18); CALCIUM 8.5 mg/dL (8.5-10.1); CO2 33 mmol/L (21-32); CREATININE 1.5 mg/dL (0.55-1.02)
[2017-06-17] MEDS ORDERED: INSULIN SLIDING SCALE (NOVOLOG) 1 VIAL SQ SCH (08:20)
[2017-06-17 08:23] LABS: GLUCOSE,RANDOM 434 mg/dL (74-106)
[2017-06-17] MEDS ORDERED: INSULIN DETEMIR 100 UNITS/ML MDV SQ SCH (08:38)
[2017-06-17] MEDS ORDERED: INSULIN DETEMIR 100 UNITS/ML MDV SQ ONE ×3 (08:39→16:54)
[2017-06-17] MEDS: ALBUTEROL SO4 2.5/IPRATROPIUM 0.5 INH SOL 3 ML VIAL.NEB. NEB SCH ×4 (08:41→20:00)
--- NOTE | 2017-06-17 09:17 | PN ---
Physical Exam: SUBJECTIVE: Patient seen and examined at the bedside. Still on supplemental oxygen @ 2 liters with sats in the 90s. As per Sister Anita, her HCP is Lesley Burgess @ [facility]. Will reach out to [facility] facility for paperwork. Spoke to Sister Anita about her non hospital DNR form from [facility] dated 2014. She wants to be a DNR/DNI while in the hospital, has [facility]OL[employer] form for her review and signature. OBJECTIVE: course lung sounds bilaterally, on supplemental oxygen dyspnea at rest Elevated BGMs, Levemir 10 units added to morning regimen: tightened standing sliding scale Vital Signs Period Temp Pulse Resp BP Sys/A[place]iza Pulse Ox Last 24 Hr 97.8 F-98.8 F 62-75 18-20 144-184/57-86 96 GENERAL: The patient is awake, alert, and fully oriented, in no acute distress. HEAD: Normal with no signs of trauma. EYES: PERRL, extraocular movements intact, sclera anicteric, conjunctiva clear. No ptosis. ENT: Ears normal, nares patent, oropharynx clear without exudates, moist mucous membranes. NECK: Trachea midline, full range of motion, supple. LUNGS: anterior lung sounds with scattered rhonchi, posterior bilateral lobes with scattered rhonchi HEART: Regular rate and rhythm ABDOMEN: Soft, nontender, nondistended, normoactive bowel sounds EXTREMITIES: no edema. NEUROLOGICAL: Normal speech, gait not observed. PSYCH: Normal mood, normal affect. SKIN: Warm, dry, normal turgor, no rashes or lesions noted Laboratory Results - last 24 hr 06/16/17 06/16/17 06/16/17 12:00 17:10 20:37 WBC RBC Hgb Hct MCV MCH MCHC RDW Plt Count MPV Sodium Potassium Chloride Carbon Dioxide Anion Gap BUN Creatinine POC Glucometer 326 276 226 Random Glucose Calcium 06/17/17 06/17/17 06/17/17 06:00 06:00 06:03 WBC 8.5 RBC 4.21 Hgb 11.9 Hct 35.2 MCV 83.7 MCH 28.3 MCHC 33.8 RDW 14.5 Plt Count 192 MPV 9.5 Sodium 130 L Potassium 3.8 Chloride 89 L Carbon Dioxide 33 H Anion Gap 8 BUN 44 H Creatinine 1.5 H POC Glucometer 399 Random Glucose 434 H* Calcium 8.5 Active Medications Generic Name Dose Route Start Last Admin Trade Name Freq PRN Reason Stop Dose Admin Acetaminophen 650 mg 06/13/17 19:30 Tylenol - PO Q6H PRN FEVER Albuterol Sulfate 1 amp 06/14/17 08:36 06/16/17 06:02 Ventolin 0.083% Nebulizer Soln - NEB 1 amp Q4H PRN Administration SHORT OF BREATH/WHEEZING Albuterol/Ipratropium 1 amp 06/13/17 20:00 06/17/17 08:41 Duoneb - NEB Not Given RQID [facility] Amlodipine Besylate 10 mg 06/14/17 10:00 06/17/17 06:28 Norvasc - PO 10 mg DAILY [facility] Administration Artificial Tears 1 drop 06/13/17 22:00 06/17/17 06:04 Artificial Tears OD 1 drop TID [facility] Administration Aspirin 81 mg 06/14/17 10:00 06/16/17 10:54 Ecotrin - PO 81 mg DAILY [facility] Administration Clopidogrel Bisulfate 75 mg 06/14/17 10:00 06/16/17 10:54 Plavix - PO 75 mg DAILY [facility] Administration Docusate Sodium 100 mg 06/13/17 22:00 06/16/17 21:14 Colace - PO 100 mg HS [facility] Administration Furosemide 40 mg 06/16/17 06:00 06/17/17 06:04 Lasix Injection - IVPUSH 40 mg BID@0600,1400 [facility] Administration Heparin Sodium (Porcine) 5,000 unit 06/13/17 22:00 06/16/17 21:14 Heparin - SQ 5,000 unit BID [facility] Administration Piperacillin Sod/Tazobactam 50 mls @ 100 mls/hr 06/14/17 02:00 06/17/17 01:00 Sod 3.375 gm/ Dextrose IVPB 100 mls/hr Q8H-IV [facility] Administration Protocol Insulin Aspart 1 vial 06/17/17 08:21 Novolog Vial Sliding Scale - SQ ACHS [facility] Protocol Insulin Detemir 15 units 06/17/17 08:38 Levemir Vial SQ HS [facility] Methylprednisolone Sodium Succinate 40 mg 06/15/17 18:00 06/17/17 01:31 Solu-Medrol - IVPUSH 40 mg Q8H-IV [facility] Administration Metoprolol Tartrate 100 mg 06/13/17 22:00 06/16/17 21:17 Lopressor - PO 100 mg BID [facility] Administration Multivitamins/Minerals/Vitamin C 1 tab 06/14/17 10:00 06/16/17 10:54 Tab-A-Vit - PO 1 tab DAILY [facility] Administration Pantoprazole Sodium 40 mg 06/14/17 10:00 06/16/17 10:54 Protonix - PO 40 mg DAILY [facility] Administration Polyethylene Glycol 17 gm 06/14/17 10:00 06/16/17 10:00 Miralax (For Daily Use) - PO 17 gm DAILY [facility] Administration ASSESSMENT/PLAN: 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 She presented to the ED today with worsening cough and mild shortness of breath. Patient was reportedly on PO Levaquin for pneumonia but after she stopped taking Levaquin apx 2 days prior, her symptoms returned and her coughing worsened. At [facility], patient was given nebulizers but with no relief. Patient is not home oxygen dependent. During her admission, a BNP ordered by pulm showed an elevated BNP. Patient is also being treated by cardiology for CHF exacerbation which is a new diagnoss for this patient. Imaging: CT/CT Chest 06/14/2017: 1. focal mixed ground glass and solid nodular opacities in the superior segment of the right lower lobe is compatible with pnemonia. 2. Moderate-sized layering left pleural effusion and small layering right pleural effusion with multi-segment compressive atelectasis in both lung bases. 3. Upper lobe predominant mild smooth interlobular septal thickening is most likely attributed to pulmonary vascular congestion. 4. Aortic valve calcification and dense calcificatin of the mitral valve annulus. Echo: mod m valve thickening, mod TR, RV systolic pressure increase 50-60, mod aortic valve thickness, mod aortic stenosis, LV size thickenss and fx are normal , LV ej. fx is normal, trace to mild MR. Pulmonary: Pneumonia, acute Chest CT shows RLL pneumonia, left pleural effusion, right pleural effusion and atelectatis of both lung bases On Zosyn 3.375mg per ID Ordered oxygen 2 liters, scheduled duonebs On Solumedrol per pulmonary Monitor oxygen sats to maintain 92% or better on 2 liters, and wean off as tolerated Pre and post prior to d/c to evaluate for home oxygen use Influenza negative Pulmonary consult Cardiology: Elevated BNP, Acute CHF, unspecified On IV Lasix 40mg BID Monitor daily weights (adm weight 54kg, now 67kg?) Monitor intake and output Cardiology following Hypertension, chronic BP elevated today On metroplol 100mg BID Monitor CAD (with stents) On ASA and Plavix Hyperlipedemia, chronic Lipid panel reviewed Endocrine Diabetes with elevated BGMs Monitor BGMs in the setting of steriod therapy and uptitrate coverage as needed Added Levemir 15 units @ BID Tighten short acting coverage SS F.E.N. Fluids: on 2 liter fluid restriction Electrolytes: daily bmp, monitor hyponatremia Nutrition: diabetic/sodium diet with 2 gram sodium Prophy: DVT: Heparin BID GI: Protonix while on steroids Disposition: full code Visit type - Emergency Visit Emergency Visit: Yes ED Registration Date: 06/13/17 Care time: The patient presented to the Emergency Department on the above date and was hospitalized for further evaluation of their emergent condition. - New Patient This patient is new to me today: No - Critical Care Critical Care patient: No - Discharge Referral Referred to [facility] No
[2017-06-17] MEDS: POLYETHYLENE GLYCOL 3350 119 GM BTL PO SCH (10:25)
[2017-06-17] MEDS: HEPARIN NA (PORCINE) 5,000 UNITS/ML 1ML VIAL SQ SCH ×2 (10:25→22:53)
[2017-06-17] MEDS: METOPROLOL TARTRATE 50 MG TABLET (FP) PO SCH ×2 (10:26→22:54)
[2017-06-17] MEDS: MULTIVITAMINS (DAILY MVI) TABLET (FP) PO SCH (10:26)
[2017-06-17] MEDS: ASPIRIN COATED 81 MG TABLET.EC PO SCH (10:26)
[2017-06-17] MEDS: CLOPIDOGREL BISULFATE 75 MG TABLET (FP) PO SCH (10:26)
[2017-06-17] MEDS: PANTOPRAZOLE 40 MG TABLET (FP) PO SCH (10:26)
--- NOTE | 2017-06-17 11:37 | PN ---
Progress Note, Physician History of Present Illness: continues to improve breathing improving - Current Medication List Current Medications: Active Medications Acetaminophen (Tylenol -) 650 mg PO Q6H PRN PRN Reason: FEVER Albuterol Sulfate (Ventolin 0.083% Nebulizer Soln -) 1 amp NEB Q4H PRN PRN Reason: SHORT OF BREATH/WHEEZING Last Admin: 06/16/17 06:02 Dose: 1 amp Albuterol/Ipratropium (Duoneb -) 1 amp NEB RQID [facility] Last Admin: 06/17/17 08:41 Dose: Not Given Amlodipine Besylate (Norvasc -) 10 mg PO DAILY [facility] Last Admin: 06/17/17 10:26 Dose: Not Given Artificial Tears (Artificial Tears) 1 drop OD TID [facility] Last Admin: 06/17/17 06:04 Dose: 1 drop Aspirin (Ecotrin -) 81 mg PO DAILY [facility] Last Admin: 06/17/17 10:26 Dose: 81 mg Clopidogrel Bisulfate (Plavix -) 75 mg PO DAILY [facility] Last Admin: 06/17/17 10:26 Dose: 75 mg Docusate Sodium (Colace -) 100 mg PO HS [facility] Last Admin: 06/16/17 21:14 Dose: 100 mg Furosemide (Lasix Injection -) 40 mg IVPUSH BID@0600,1400 [facility] Last Admin: 06/17/17 06:04 Dose: 40 mg Heparin Sodium (Porcine) (Heparin -) 5,000 unit SQ BID [facility] Last Admin: 06/17/17 10:25 Dose: 5,000 unit Piperacillin Sod/Tazobactam (Sod 3.375 gm/ Dextrose) 50 mls @ 100 mls/hr IVPB Q8H-IV [facility] PRN Reason: Protocol Last Admin: 06/17/17 10:25 Dose: 100 mls/hr Insulin Aspart (Novolog Vial Sliding Scale -) 1 vial SQ ACHS [facility] PRN Reason: Protocol Insulin Detemir (Levemir Vial) 15 units SQ [facility] Methylprednisolone Sodium Succinate (Solu-Medrol -) 40 mg IVPUSH Q8H-IV [facility] Last Admin: 06/17/17 10:25 Dose: 40 mg Metoprolol Tartrate (Lopressor -) 100 mg PO BID [facility] Last Admin: 06/17/17 10:26 Dose: 100 mg Multivitamins/Minerals/Vitamin C (Tab-A-Vit -) 1 tab PO DAILY [facility] Last Admin: 06/17/17 10:26 Dose: 1 tab Pantoprazole Sodium (Protonix -) 40 mg PO DAILY [facility] Last Admin: 06/17/17 10:26 Dose: 40 mg Polyethylene Glycol (Miralax (For Daily Use) -) 17 gm PO DAILY [facility] Last Admin: 06/17/17 10:25 Dose: 17 gm - Objective Vital Signs: Vital Signs Temperature 98 F 06/17/17 04:00 Pulse Rate 69 06/17/17 04:00 Respiratory Rate 20 06/17/17 04:00 Blood Pressure 184/81 06/17/17 04:00 O2 Sat by Pulse Oximetry (%) 96 06/16/17 20:34 Constitutional: Yes: No Distress, Calm Cardiovascular: Yes: Regular Rate and Rhythm Respiratory: Yes: Regular, CTA Bilaterally Gastrointestinal: Yes: Normal Bowel Sounds, Soft Musculoskeletal: Yes: WNL Extremities: Yes: WNL Neurological: Yes: Alert, Oriented Psychiatric: Yes: Alert, Oriented Labs: CBC, BMP 06/17/17 06:00 06/17/17 06:00 INR, PTT INR 1.06 (0.82-1.09) 06/13/17 15:06 Assessment/Plan Problem List - Problems (1) Respiratory distress Code(s): R06.03 - ACUTE RESPIRATORY DISTRESS (2) Pneumonia Code(s): J18.9 - PNEUMONIA, UNSPECIFIED ORGANISM Qualifiers: Pneumonia type: due to unspecified organism Laterality: bilateral Lung location: unspecified part of lung Qualified Code(s): J18.9 - Pneumonia, unspecified organism (3) CAD (coronary artery disease) Code(s): I25.10 - ATHSCL HEART DISEASE OF [place] CORONARY ARTERY W/O ANG PCTRS Qualifiers: Coronary Disease-Associated Artery/Lesion type: [place] coronary artery [place] vs. transplanted heart: [place] heart Associated angina: without angina pectoris (4) Diabetes mellitus type 2, uncontrolled Code(s): E11.65 - TYPE 2 DIABETES MELLITUS WITH HYPERGLYCEMIA (5) History of coronary artery stent placement Code(s): Z95.5 - PRESENCE OF CORONARY ANGIOPLASTY IMPLANT AND GRAFT (6) Hyperlipidemia Code(s): E78.5 - HYPERLIPIDEMIA, UNSPECIFIED (7) Hypertension Code(s): I10 - ESSENTIAL (PRIMARY) HYPERTENSION Qualifiers: Hypertension type: essential hypertension Qualified Code(s): I10 - Essential (primary) hypertension (8) Acute kidney injury Code(s): N17.9 - ACUTE KIDNEY FAILURE, UNSPECIFIED plan conitnue abx will finish complete course incentive isabela rest as per primary team
[2017-06-17] MEDS ORDERED: BENZOCAINE/MENTH/CETYLPYRD CL 1 EACH LOZENGE MM PRN (15:19)
--- NOTE | 2017-06-17 15:38 | PN ---
Progress Note, Physician History of Present Illness: pulmonary alert,feeling better,-sob,less cough - Current Medication List Current Medications: Active Medications Acetaminophen (Tylenol -) 650 mg PO Q6H PRN PRN Reason: FEVER Albuterol Sulfate (Ventolin 0.083% Nebulizer Soln -) 1 amp NEB Q4H PRN PRN Reason: SHORT OF BREATH/WHEEZING Last Admin: 06/16/17 06:02 Dose: 1 amp Albuterol/Ipratropium (Duoneb -) 1 amp NEB RQID [facility] Last Admin: 06/17/17 11:46 Dose: 1 amp Amlodipine Besylate (Norvasc -) 10 mg PO DAILY [facility] Last Admin: 06/17/17 10:26 Dose: Not Given Artificial Tears (Artificial Tears) 1 drop OD TID [facility] Last Admin: 06/17/17 14:00 Dose: 1 drop Aspirin (Ecotrin -) 81 mg PO DAILY [facility] Last Admin: 06/17/17 10:26 Dose: 81 mg Benzocaine/Menthol (Cepacol Lozenge -) 1 each MM PRN PRN PRN Reason: SORE THROAT Clopidogrel Bisulfate (Plavix -) 75 mg PO DAILY [facility] Last Admin: 06/17/17 10:26 Dose: 75 mg Docusate Sodium (Colace -) 100 mg PO HS [facility] Last Admin: 06/16/17 21:14 Dose: 100 mg Furosemide (Lasix Injection -) 40 mg IVPUSH BID@0600,1400 [facility] Last Admin: 06/17/17 14:00 Dose: 40 mg Heparin Sodium (Porcine) (Heparin -) 5,000 unit SQ BID [facility] Last Admin: 06/17/17 10:25 Dose: 5,000 unit Piperacillin Sod/Tazobactam (Sod 3.375 gm/ Dextrose) 50 mls @ 100 mls/hr IVPB Q8H-IV [facility] PRN Reason: Protocol Last Admin: 06/17/17 10:25 Dose: 100 mls/hr Insulin Aspart (Novolog Vial Sliding Scale -) 1 vial SQ ACHS [facility] PRN Reason: Protocol Last Admin: 06/17/17 12:01 Dose: 10 units Insulin Detemir (Levemir Vial) 15 units SQ BID [facility] Methylprednisolone Sodium Succinate (Solu-Medrol -) 40 mg IVPUSH Q8H-IV [facility] Last Admin: 06/17/17 10:25 Dose: 40 mg Metoprolol Tartrate (Lopressor -) 100 mg PO BID [facility] Last Admin: 06/17/17 10:26 Dose: 100 mg Multivitamins/Minerals/Vitamin C (Tab-A-Vit -) 1 tab PO DAILY [facility] Last Admin: 06/17/17 10:26 Dose: 1 tab Pantoprazole Sodium (Protonix -) 40 mg PO DAILY [facility] Last Admin: 06/17/17 10:26 Dose: 40 mg Polyethylene Glycol (Miralax (For Daily Use) -) 17 gm PO DAILY [facility] Last Admin: 06/17/17 10:25 Dose: 17 gm - Objective Vital Signs: Vital Signs Temperature 97.1 F L 06/17/17 08:00 Pulse Rate 64 06/17/17 08:00 Respiratory Rate 18 06/17/17 08:00 Blood Pressure 150/67 06/17/17 08:00 O2 Sat by Pulse Oximetry (%) 96 06/17/17 09:00 Constitutional: Yes: Well Nourished, Calm Eyes: Yes: WNL HENT: Yes: WNL Neck: Yes: WNL Cardiovascular: Yes: Regular Rate and Rhythm, S1, S2 Respiratory: Yes: Rales (bilateral rales), Wheezes (few scattered wheezes) Gastrointestinal: Yes: Normal Bowel Sounds, Soft Extremities: Yes: WNL Edema: No Labs: CBC, BMP 06/17/17 06:00 06/17/17 06:00 INR, PTT INR 1.06 (0.82-1.09) 06/13/17 15:06 Problem List - Problems (1) Respiratory distress Code(s): R06.03 - ACUTE RESPIRATORY DISTRESS (2) Pneumonia Code(s): J18.9 - PNEUMONIA, UNSPECIFIED ORGANISM Qualifiers: Pneumonia type: due to unspecified organism Laterality: bilateral Lung location: unspecified part of lung Qualified Code(s): J18.9 - Pneumonia, unspecified organism (3) CAD (coronary artery disease) Code(s): I25.10 - ATHSCL HEART DISEASE OF [place] CORONARY ARTERY W/O ANG PCTRS Qualifiers: Coronary Disease-Associated Artery/Lesion type: [place] coronary artery [place] vs. transplanted heart: [place] heart Associated angina: without angina pectoris (4) Diabetes mellitus type 2, uncontrolled Code(s): E11.65 - TYPE 2 DIABETES MELLITUS WITH HYPERGLYCEMIA (5) History of coronary artery stent placement Code(s): Z95.5 - PRESENCE OF CORONARY ANGIOPLASTY IMPLANT AND GRAFT (6) Hyperlipidemia Code(s): E78.5 - HYPERLIPIDEMIA, UNSPECIFIED (7) Hypertension Code(s): I10 - ESSENTIAL (PRIMARY) HYPERTENSION Qualifiers: Hypertension type: essential hypertension Qualified Code(s): I10 - Essential (primary) hypertension (8) Acute kidney injury Code(s): N17.9 - ACUTE KIDNEY FAILURE, UNSPECIFIED Assessment/Plan IMP ACUTE RESPIRATORY DISTRESS BILATERAL PNEUMONIA CHF ASHD S/P STENT PULMONARY HTN HTN GABE PLAN IV ANTIBIOTICS INHALED BRONCHODILATORS O2 ANTI-TUSSIVES IV LASIX MONITOR LYTES,RENAL FUNCTION F/U CHEST X-RAY IN AM DAILY WT DR RAMOS Problem List - Problems (1) Respiratory distress Code(s): R06.03 - ACUTE RESPIRATORY DISTRESS (2) Pneumonia Code(s): J18.9 - PNEUMONIA, UNSPECIFIED ORGANISM Qualifiers: Pneumonia type: due to unspecified organism Laterality: bilateral Lung location: unspecified part of lung Qualified Code(s): J18.9 - Pneumonia, unspecified organism (3) CAD (coronary artery disease) Code(s): I25.10 - ATHSCL HEART DISEASE OF [place] CORONARY ARTERY W/O ANG PCTRS Qualifiers: Coronary Disease-Associated Artery/Lesion type: [place] coronary artery [place] vs. transplanted heart: [place] heart Associated angina: without angina pectoris (4) Diabetes mellitus type 2, uncontrolled Code(s): E11.65 - TYPE 2 DIABETES MELLITUS WITH HYPERGLYCEMIA (5) History of coronary artery stent placement Code(s): Z95.5 - PRESENCE OF CORONARY ANGIOPLASTY IMPLANT AND GRAFT (6) Hyperlipidemia Code(s): E78.5 - HYPERLIPIDEMIA, UNSPECIFIED (7) Hypertension Code(s): I10 - ESSENTIAL (PRIMARY) HYPERTENSION Qualifiers: Hypertension type: essential hypertension Qualified Code(s): I10 - Essential (primary) hypertension (8) Acute kidney injury Code(s): N17.9 - ACUTE KIDNEY FAILURE, UNSPECIFIED
--- NOTE | 2017-06-17 16:52 | PN ---
Progress Note, Physician Chief Complaint: She appears comfortable at time of exam. She has no SOB at rest. But she still have cough and wheezing. 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 She presented to the ED with worsening cough and mild shortness of breath, fever and sputum. Found with infiltrate and CHF on CT scan. She has been treated with IV Lasix for diastolic CHF and IV antibiotics for pneumonia. Echo 06/14/17 nlef mild aortic stenosis - Current Medication List Current Medications: Active Medications Acetaminophen (Tylenol -) 650 mg PO Q6H PRN PRN Reason: FEVER Albuterol Sulfate (Ventolin 0.083% Nebulizer Soln -) 1 amp NEB Q4H PRN PRN Reason: SHORT OF BREATH/WHEEZING Last Admin: 06/16/17 06:02 Dose: 1 amp Albuterol/Ipratropium (Duoneb -) 1 amp NEB RQID [facility] Last Admin: 06/17/17 15:39 Dose: 1 amp Amlodipine Besylate (Norvasc -) 10 mg PO DAILY [facility] Last Admin: 06/17/17 10:26 Dose: Not Given Artificial Tears (Artificial Tears) 1 drop OD TID [facility] Last Admin: 06/17/17 14:00 Dose: 1 drop Aspirin (Ecotrin -) 81 mg PO DAILY [facility] Last Admin: 06/17/17 10:26 Dose: 81 mg Benzocaine/Menthol (Cepacol Lozenge -) 1 each MM PRN PRN PRN Reason: SORE THROAT Clopidogrel Bisulfate (Plavix -) 75 mg PO DAILY [facility] Last Admin: 06/17/17 10:26 Dose: 75 mg Docusate Sodium (Colace -) 100 mg PO HS [facility] Last Admin: 06/16/17 21:14 Dose: 100 mg Furosemide (Lasix Injection -) 40 mg IVPUSH BID@0600,1400 [facility] Last Admin: 06/17/17 14:00 Dose: 40 mg Heparin Sodium (Porcine) (Heparin -) 5,000 unit SQ BID [facility] Last Admin: 06/17/17 10:25 Dose: 5,000 unit Piperacillin Sod/Tazobactam (Sod 3.375 gm/ Dextrose) 50 mls @ 100 mls/hr IVPB Q8H-IV [facility] PRN Reason: Protocol Last Admin: 06/17/17 10:25 Dose: 100 mls/hr Insulin Aspart (Novolog Vial Sliding Scale -) 1 vial SQ ACHS [facility] PRN Reason: Protocol Last Admin: 06/17/17 16:47 Dose: 5 units Insulin Detemir (Levemir Vial) 15 units SQ BID [facility] Methylprednisolone Sodium Succinate (Solu-Medrol -) 40 mg IVPUSH Q12H [facility] Last Admin: 06/17/17 16:45 Dose: 40 mg Metoprolol Tartrate (Lopressor -) 100 mg PO BID [facility] Last Admin: 06/17/17 10:26 Dose: 100 mg Multivitamins/Minerals/Vitamin C (Tab-A-Vit -) 1 tab PO DAILY [facility] Last Admin: 06/17/17 10:26 Dose: 1 tab Pantoprazole Sodium (Protonix -) 40 mg PO DAILY [facility] Last Admin: 06/17/17 10:26 Dose: 40 mg Polyethylene Glycol (Miralax (For Daily Use) -) 17 gm PO DAILY [facility] Last Admin: 06/17/17 10:25 Dose: 17 gm - Objective Vital Signs: Vital Signs Temperature 97.1 F L 06/17/17 08:00 Pulse Rate 64 06/17/17 08:00 Respiratory Rate 18 06/17/17 08:00 Blood Pressure 150/67 06/17/17 08:00 O2 Sat by Pulse Oximetry (%) 96 06/17/17 09:00 General: Well developed. Well nourished. No acute distress. Head: Normocephalic. Atraumatic, Eyes: PERRLA, EOMI. Sclerae anicteric. Conjunctivae clear. Neck: Supple. No JVD. No bruits. Heart: Normal S1, S2: Regular rhythm and rate. II/ RAZ at right upper sternal border. No gallop or rub. Lungs: Symmetrical limited air entry. Scattered wheezing, rhonchi. and crackles : R>L. Abdomen: Soft. Bowel sound positive. Non tender. No masses. Extremities: No edema. No clubbing or cyanosis. Neuro: Intact, no focal findings. AAO X3. 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 She presented to the ED with worsening cough and mild shortness of breath, fever and sputum. Found with infiltrate and CHF on CT scan. She has been treated with IV Lasix for diastolic CHF and IV antibiotics for pneumonia. Echo 06/14/17 nlef mild aortic stenosis 1) Diastolic CHF: No signigicant fluid overload now. The crackles are likely due to pneumonia. Would change Lasix to PO 40 mg BID. Monitor weights. Fluid restriction 2 liters, 2 gm NA diet. 2) CAD: Stable on medications. Continue aspirin, Plavix and metoprolol. No need for testing at this time. 3) Hypertension: Systolic BP is mildly elevated. HR is well controlled. Continue metoprolol and amlodipine.
[2017-06-17] MEDS ORDERED: PT OWN MED DRAWER 7, Y5N ONE (20:59)
[2017-06-17] MEDS: INSULIN DETEMIR 100 UNITS/ML MDV SQ SCH (22:53)
[2017-06-17] MEDS: DOCUSATE SODIUM 100 MG CAPSULE (FP) PO SCH (22:53)
[2017-06-18] MEDS ORDERED: PIPERACILLIN/TAZOBACTAM 3.375 GM VIAL IVPB ONE ×3 (01:44→17:19)
[2017-06-18] MEDS ORDERED: DEXTROSE 5%-WATER 100 ML IVPB ONE ×3 (01:45→17:20)
[2017-06-18] MEDS: PIPERACILLIN IVPB SCH ×3 (02:50→17:27)
[2017-06-18] MEDS: WATER IVPB SCH ×3 (02:50→17:27)
[2017-06-18] MEDS: TAZOB IVPB SCH ×3 (02:50→17:27)
[2017-06-18] MEDS: DEXTROSE 5% IVPB SCH ×3 (02:50→17:27)
[2017-06-18] MEDS: methylPREDNISolone NA SUCC 40 MG/1 ML VIAL IVPUSH SCH ×2 (02:52→14:53)
[2017-06-18] MEDS: INSULIN SLIDING SCALE (NOVOLOG) 1 VIAL SQ SCH ×4 (06:14→21:03)
[2017-06-18] MEDS: ARTIFICIAL TEARS (POLYVINYL ALCOHOL 1.4%) OPTH DROPS OD SCH ×3 (06:15→21:05)
[2017-06-18] MEDS: FUROSEMIDE 40 MG/4 ML INJECTABLE VIAL IVPUSH SCH ×2 (06:15→13:42)
[2017-06-18] MEDS: amLODIPine BESYLATE 10 MG TABLET (FP) PO SCH ×2 (07:02→10:15)
[2017-06-18] MEDS: ALBUTEROL SO4 2.5/IPRATROPIUM 0.5 INH SOL 3 ML VIAL.NEB. NEB SCH ×4 (08:09→21:00)
[2017-06-18 08:33] LABS: CHLORIDE 91 mmol/L (98-107); POTASSIUM 3.7 mmol/L (3.5-5.1); SODIUM 134 mmol/L (136-145)
[2017-06-18 08:36] LABS: BASO % 0.1 % (0-2.0); HEMATOCRIT 40.3 % (32.4-45.2); HEMOGLOBIN 13.4 GM/dL (10.7-15.3); LYMPH % 4.5 % (8-40); MCH 27.7 pg (25.7-33.7); MCHC 33.2 g/dl (32.0-36.0); MEAN CELL VOLUME 83.6 fl (80-96); MEAN PLT VOLUME 9.6 fl (7.5-11.1); MONO % 8.5 % (3.8-10.2); NEUT % 86.9 % (42.8-82.8); PLATELET COUNT 203 K/MM3 (134-434); RBC 4.82 M/mm3 (3.60-5.2); RDW 14.4 % (11.6-15.6); WHITE BLOOD COUNT 8.8 K/mm3 (4.0-10.0)
[2017-06-18 08:43] LABS: ALBUMIN 3.2 g/dl (3.4-5.0); ALK PHOS 70 U/L (45-117); ANION GAP 6 (8-16); BILIRUBIN,TOTAL 0.6 mg/dL (0.2-1.0); BLOOD UREA NITROGEN 43 mg/dL (7-18); CO2 37 mmol/L (21-32); CREATININE 1.3 mg/dL (0.55-1.02); GLUCOSE,RANDOM 80 mg/dL (74-106); MAGNESIUM 1.9 mg/dL (1.8-2.4); SGOT/AST 23 U/L (15-37); SGPT/ALT 29 U/L (12-78); TOT PROT 6.7 g/dl (6.4-8.2)
[2017-06-18] MEDS: INSULIN DETEMIR 100 UNITS/ML MDV SQ SCH ×2 (10:14→21:02)
[2017-06-18] MEDS: METOPROLOL TARTRATE 50 MG TABLET (FP) PO SCH ×2 (10:14→21:01)
[2017-06-18] MEDS: HEPARIN NA (PORCINE) 5,000 UNITS/ML 1ML VIAL SQ SCH ×2 (10:14→21:00)
[2017-06-18] MEDS: MULTIVITAMINS (DAILY MVI) TABLET (FP) PO SCH (10:14)
[2017-06-18] MEDS: POLYETHYLENE GLYCOL 3350 119 GM BTL PO SCH (10:15)
[2017-06-18] MEDS: ASPIRIN COATED 81 MG TABLET.EC PO SCH (10:15)
[2017-06-18] MEDS: CLOPIDOGREL BISULFATE 75 MG TABLET (FP) PO SCH (10:15)
[2017-06-18] MEDS: PANTOPRAZOLE 40 MG TABLET (FP) PO SCH (10:15)
[2017-06-18] MEDS ORDERED: INSULIN (NOVOLOG) ASPART 100 UNITS/ML 10ML VIAL ONE (10:33)
--- NOTE | 2017-06-18 11:52 | PN ---
Physical Exam: SUBJECTIVE: Patient seen and examined at the bedside. States she does not feel well today. Just feels tired. OBJECTIVE: Vital Signs Period Temp Pulse Resp BP Sys/Araiza Pulse Ox Last 24 Hr 97.3 F-98.4 F 50-66 20-20 140-186/56-80 96-100 GENERAL: The patient is awake, alert, and fully oriented, in no acute distress. HEAD: Normal with no signs of trauma. EYES: PERRL, extraocular movements intact, sclera anicteric, conjunctiva clear. No ptosis. ENT: Ears normal, nares patent, oropharynx clear without exudates, moist mucous membranes. NECK: Trachea midline, full range of motion, supple. LUNGS: anterior lung sounds with scattered rhonchi, posterior bilateral lobes with scattered rhonchi HEART: Regular rate and rhythm ABDOMEN: Soft, nontender, nondistended, normoactive bowel sounds EXTREMITIES: no edema. NEUROLOGICAL: Normal speech, gait not observed. PSYCH: Normal mood, normal affect. SKIN: Warm, dry, normal turgor, no rashes or lesions noted Laboratory Results - last 24 hr 06/17/17 06/17/17 06/17/17 11:57 16:42 22:51 WBC RBC Hgb Hct MCV MCH MCHC RDW Plt Count MPV Neutrophils % Lymphocytes % Monocytes % Eosinophils % Basophils % Sodium Potassium Chloride Carbon Dioxide Anion Gap BUN Creatinine Creat Clearance w eGFR POC Glucometer 314 223 136 Random Glucose Calcium Magnesium Total Bilirubin AST ALT Alkaline Phosphatase Total Protein Albumin 06/18/17 06/18/17 06/18/17 06:00 06:00 06:13 WBC 8.8 RBC 4.82 Hgb 13.4 D Hct 40.3 MCV 83.6 MCH 27.7 MCHC 33.2 RDW 14.4 Plt Count 203 MPV 9.6 Neutrophils % 86.9 H Lymphocytes % 4.5 L D Monocytes % 8.5 Eosinophils % 0.0 Basophils % 0.1 Sodium 134 L Potassium 3.7 Chloride 91 L Carbon Dioxide 37 H Anion Gap 6 L BUN 43 H Creatinine 1.3 H Creat Clearance w eGFR 38.57 POC Glucometer 90 Random Glucose 80 Calcium 9.0 Magnesium 1.9 Total Bilirubin 0.6 AST 23 ALT 29 Alkaline Phosphatase 70 Total Protein 6.7 Albumin 3.2 L 06/18/17 11:02 WBC RBC Hgb Hct MCV MCH MCHC RDW Plt Count MPV Neutrophils % Lymphocytes % Monocytes % Eosinophils % Basophils % Sodium Potassium Chloride Carbon Dioxide Anion Gap BUN Creatinine Creat Clearance w eGFR POC Glucometer 158 Random Glucose Calcium Magnesium Total Bilirubin AST ALT Alkaline Phosphatase Total Protein Albumin Active Medications Generic Name Dose Route Start Last Admin Trade Name Freq PRN Reason Stop Dose Admin Acetaminophen 650 mg 06/13/17 19:30 Tylenol - PO Q6H PRN FEVER Albuterol Sulfate 1 amp 06/14/17 08:36 06/16/17 06:02 Ventolin 0.083% Nebulizer Soln - NEB 1 amp Q4H PRN Administration SHORT OF BREATH/WHEEZING Albuterol/Ipratropium 1 amp 06/13/17 20:00 06/18/17 11:39 Duoneb - NEB 1 amp RQID [facility] Administration Amlodipine Besylate 10 mg 06/14/17 10:00 06/18/17 10:15 Norvasc - PO Not Given DAILY [facility] Artificial Tears 1 drop 06/13/17 22:00 06/18/17 06:15 Artificial Tears OD 1 drop TID [facility] Administration Aspirin 81 mg 06/14/17 10:00 06/18/17 10:15 Ecotrin - PO 81 mg DAILY [facility] Administration Benzocaine/Menthol 1 each 06/17/17 15:19 06/17/17 16:53 Cepacol Lozenge - MM 1 each PRN PRN Administration SORE THROAT Clopidogrel Bisulfate 75 mg 06/14/17 10:00 06/18/17 10:15 Plavix - PO 75 mg DAILY [facility] Administration Docusate Sodium 100 mg 06/13/17 22:00 06/17/17 22:53 Colace - PO 100 mg HS [facility] Administration Furosemide 40 mg 06/16/17 06:00 06/18/17 06:15 Lasix Injection - IVPUSH 40 mg BID@0600,1400 [facility] Administration Heparin Sodium (Porcine) 5,000 unit 06/13/17 22:00 06/18/17 10:14 Heparin - SQ 5,000 unit BID [facility] Administration Piperacillin Sod/Tazobactam 50 mls @ 100 mls/hr 06/14/17 02:00 06/18/17 10:15 Sod 3.375 gm/ Dextrose IVPB 100 mls/hr Q8H-IV [facility] Administration Protocol Insulin Aspart 1 vial 06/17/17 08:21 04/08/18 11:03 Novolog Vial Sliding Scale - SQ Not Given ACHS [facility] Protocol Insulin Detemir 15 units 06/17/17 22:00 06/18/17 10:14 Levemir Vial SQ 15 unit BID [facility] Administration Methylprednisolone Sodium Succinate 40 mg 06/17/17 15:45 06/18/17 02:52 Solu-Medrol - IVPUSH 40 mg Q12H [facility] Administration Metoprolol Tartrate 100 mg 06/13/17 22:00 06/18/17 10:14 Lopressor - PO 100 mg BID [facility] Administration Multivitamins/Minerals/Vitamin C 1 tab 06/14/17 10:00 06/18/17 10:14 Tab-A-Vit - PO 1 tab DAILY [facility] Administration Pantoprazole Sodium 40 mg 06/14/17 10:00 06/18/17 10:15 Protonix - PO 40 mg DAILY [facility] Administration Polyethylene Glycol 17 gm 06/14/17 10:00 06/18/17 10:15 Miralax (For Daily Use) - PO 17 gm DAILY [facility] Administration ASSESSMENT/PLAN: 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 She presented to the ED today with worsening cough and mild shortness of breath. Patient was reportedly on PO Levaquin for pneumonia but after she stopped taking Levaquin apx 2 days prior, her symptoms returned and her coughing worsened. At [facility], patient was given nebulizers but with no relief. Patient is not home oxygen dependent. During her admission, a BNP ordered by pulm showed an elevated BNP. Patient is also being treated by cardiology for CHF exacerbation which is a new diagnoss for this patient. Imaging: CT/CT Chest 06/14/2017: 1. focal mixed ground glass and solid nodular opacities in the superior segment of the right lower lobe is compatible with pnemonia. 2. Moderate-sized layering left pleural effusion and small layering right pleural effusion with multi-segment compressive atelectasis in both lung bases. 3. Upper lobe predominant mild smooth interlobular septal thickening is most likely attributed to pulmonary vascular congestion. 4. Aortic valve calcification and dense calcificatin of the mitral valve annulus. Echo: mod m valve thickening, mod TR, RV systolic pressure increase 50-60, mod aortic valve thickness, mod aortic stenosis, LV size thickenss and fx are normal , LV ej. fx is normal, trace to mild MR. Pulmonary: Pneumonia, acute Chest CT shows RLL pneumonia, left pleural effusion, right pleural effusion and atelectatis of both lung bases On Zosyn 3.375mg per ID Ordered oxygen 2 liters, scheduled duonebs On Solumedrol per pulmonary Monitor oxygen sats to maintain 92% or better on 2 liters, and wean off as tolerated Pre and post prior to d/c to evaluate for home oxygen use Influenza negative Pulmonary consult Cardiology: Elevated BNP, Acute diastolic CHF On Lasix 40mg PO BID Monitor daily weights Monitor intake and output Cardiology following Hypertension, chronic On metroplol 100mg BID Monitor CAD (with stents) On ASA and Plavix Hyperlipedemia, chronic Lipid panel reviewed Endocrine Diabetes with elevated BGMs Monitor BGMs in the setting of steriod therapy and uptitrate coverage as needed Added Levemir 15 units @ BID Tighten short acting coverage SS F.E.N. Fluids: on 2 liter fluid restriction Electrolytes: daily bmp, monitor hyponatremia Nutrition: diabetic/sodium diet with 2 gram sodium Prophy: DVT: Heparin BID GI: Protonix while on steroids Disposition: full code Visit type - Emergency Visit Emergency Visit: Yes ED Registration Date: 06/13/17 Care time: The patient presented to the Emergency Department on the above date and was hospitalized for further evaluation of their emergent condition. - New Patient This patient is new to me today: No - Critical Care Critical Care patient: No - Discharge Referral Referred to [facility] No
--- NOTE | 2017-06-18 13:30 | PN ---
Progress Note, Physician History of Present Illness: feeling better no issues breathing better - Current Medication List Current Medications: Active Medications Acetaminophen (Tylenol -) 650 mg PO Q6H PRN PRN Reason: FEVER Albuterol Sulfate (Ventolin 0.083% Nebulizer Soln -) 1 amp NEB Q4H PRN PRN Reason: SHORT OF BREATH/WHEEZING Last Admin: 06/16/17 06:02 Dose: 1 amp Albuterol/Ipratropium (Duoneb -) 1 amp NEB RQID [facility] Last Admin: 06/18/17 11:39 Dose: 1 amp Amlodipine Besylate (Norvasc -) 10 mg PO DAILY [facility] Last Admin: 06/18/17 10:15 Dose: Not Given Artificial Tears (Artificial Tears) 1 drop OD TID [facility] Last Admin: 06/18/17 06:15 Dose: 1 drop Aspirin (Ecotrin -) 81 mg PO DAILY [facility] Last Admin: 06/18/17 10:15 Dose: 81 mg Benzocaine/Menthol (Cepacol Lozenge -) 1 each MM PRN PRN PRN Reason: SORE THROAT Last Admin: 06/17/17 16:53 Dose: 1 each Clopidogrel Bisulfate (Plavix -) 75 mg PO DAILY [facility] Last Admin: 06/18/17 10:15 Dose: 75 mg Docusate Sodium (Colace -) 100 mg PO HS [facility] Last Admin: 06/17/17 22:53 Dose: 100 mg Furosemide (Lasix Injection -) 40 mg IVPUSH BID@0600,1400 [facility] Last Admin: 06/18/17 06:15 Dose: 40 mg Heparin Sodium (Porcine) (Heparin -) 5,000 unit SQ BID [facility] Last Admin: 06/18/17 10:14 Dose: 5,000 unit Piperacillin Sod/Tazobactam (Sod 3.375 gm/ Dextrose) 50 mls @ 100 mls/hr IVPB Q8H-IV [facility] PRN Reason: Protocol Last Admin: 06/18/17 10:15 Dose: 100 mls/hr Insulin Aspart (Novolog Vial Sliding Scale -) 1 vial SQ ACHS [facility] PRN Reason: Protocol Last Admin: 06/18/17 11:03 Dose: Not Given Insulin Detemir (Levemir Vial) 15 units SQ BID [facility] Last Admin: 06/18/17 10:14 Dose: 15 unit Methylprednisolone Sodium Succinate (Solu-Medrol -) 40 mg IVPUSH Q12H [facility] Last Admin: 06/18/17 02:52 Dose: 40 mg Metoprolol Tartrate (Lopressor -) 100 mg PO BID [facility] Last Admin: 06/18/17 10:14 Dose: 100 mg Multivitamins/Minerals/Vitamin C (Tab-A-Vit -) 1 tab PO DAILY [facility] Last Admin: 06/18/17 10:14 Dose: 1 tab Pantoprazole Sodium (Protonix -) 40 mg PO DAILY [facility] Last Admin: 06/18/17 10:15 Dose: 40 mg Polyethylene Glycol (Miralax (For Daily Use) -) 17 gm PO DAILY [facility] Last Admin: 06/18/17 10:15 Dose: 17 gm - Objective Vital Signs: Vital Signs Temperature 98.3 F 06/18/17 09:00 Pulse Rate 51 L 06/18/17 09:00 Respiratory Rate 20 06/18/17 09:00 Blood Pressure 155/62 06/18/17 09:00 O2 Sat by Pulse Oximetry (%) 100 06/18/17 09:00 Constitutional: Yes: No Distress, Calm Cardiovascular: Yes: Regular Rate and Rhythm Respiratory: Yes: Regular, Poor Air Entry Gastrointestinal: Yes: Normal Bowel Sounds, Soft Musculoskeletal: Yes: WNL Extremities: Yes: WNL Neurological: Yes: Alert, Oriented Psychiatric: Yes: Alert, Oriented Labs: CBC, BMP 06/18/17 06:00 06/18/17 06:00 INR, PTT INR 1.06 (0.82-1.09) 06/13/17 15:06 Assessment/Plan patient with multiple medical problems admitted for pneumonia given vanco and zosyn in the er now improving pna dm hyperlipidemia cough sob plan will stop zosyn tomorrow if everything is ok patient doing well
--- NOTE | 2017-06-18 14:05 | PN ---
Progress Note, Physician Chief Complaint: She appears comfortable at time of exam. But she complains of "not feeling well ". She has no SOB at rest. Cough improving. 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 She presented to the ED with worsening cough and mild shortness of breath, fever and sputum. Found with infiltrate and CHF on CT scan. She has been treated with IV Lasix for diastolic CHF and IV antibiotics for pneumonia. Echo 06/14/17 nlef mild aortic stenosis - Current Medication List Current Medications: Active Medications Acetaminophen (Tylenol -) 650 mg PO Q6H PRN PRN Reason: FEVER Albuterol Sulfate (Ventolin 0.083% Nebulizer Soln -) 1 amp NEB Q4H PRN PRN Reason: SHORT OF BREATH/WHEEZING Last Admin: 06/16/17 06:02 Dose: 1 amp Albuterol/Ipratropium (Duoneb -) 1 amp NEB RQID [facility] Last Admin: 06/18/17 11:39 Dose: 1 amp Amlodipine Besylate (Norvasc -) 10 mg PO DAILY [facility] Last Admin: 06/18/17 10:15 Dose: Not Given Artificial Tears (Artificial Tears) 1 drop OD TID [facility] Last Admin: 06/18/17 13:43 Dose: 1 drop Aspirin (Ecotrin -) 81 mg PO DAILY [facility] Last Admin: 06/18/17 10:15 Dose: 81 mg Benzocaine/Menthol (Cepacol Lozenge -) 1 each MM PRN PRN PRN Reason: SORE THROAT Last Admin: 06/17/17 16:53 Dose: 1 each Clopidogrel Bisulfate (Plavix -) 75 mg PO DAILY [facility] Last Admin: 06/18/17 10:15 Dose: 75 mg Docusate Sodium (Colace -) 100 mg PO HS [facility] Last Admin: 06/17/17 22:53 Dose: 100 mg Furosemide (Lasix Injection -) 40 mg IVPUSH BID@0600,1400 [facility] Last Admin: 06/18/17 13:42 Dose: 40 mg Heparin Sodium (Porcine) (Heparin -) 5,000 unit SQ BID [facility] Last Admin: 06/18/17 10:14 Dose: 5,000 unit Piperacillin Sod/Tazobactam (Sod 3.375 gm/ Dextrose) 50 mls @ 100 mls/hr IVPB Q8H-IV [facility] PRN Reason: Protocol Last Admin: 06/18/17 10:15 Dose: 100 mls/hr Insulin Aspart (Novolog Vial Sliding Scale -) 1 vial SQ ACHS [facility] PRN Reason: Protocol Last Admin: 06/18/17 11:03 Dose: Not Given Insulin Detemir (Levemir Vial) 15 units SQ BID [facility] Last Admin: 06/18/17 10:14 Dose: 15 unit Methylprednisolone Sodium Succinate (Solu-Medrol -) 40 mg IVPUSH Q12H [facility] Last Admin: 06/18/17 02:52 Dose: 40 mg Metoprolol Tartrate (Lopressor -) 100 mg PO BID [facility] Last Admin: 06/18/17 10:14 Dose: 100 mg Multivitamins/Minerals/Vitamin C (Tab-A-Vit -) 1 tab PO DAILY [facility] Last Admin: 06/18/17 10:14 Dose: 1 tab Pantoprazole Sodium (Protonix -) 40 mg PO DAILY [facility] Last Admin: 06/18/17 10:15 Dose: 40 mg Polyethylene Glycol (Miralax (For Daily Use) -) 17 gm PO DAILY [facility] Last Admin: 06/18/17 10:15 Dose: 17 gm - Objective Vital Signs: Vital Signs Temperature 98.3 F 06/18/17 09:00 Pulse Rate 51 L 06/18/17 09:00 Respiratory Rate 20 06/18/17 09:00 Blood Pressure 155/62 06/18/17 09:00 O2 Sat by Pulse Oximetry (%) 100 06/18/17 09:00 General: Well developed. Well nourished. No acute distress. Head: Normocephalic. Atraumatic, Eyes: PERRLA, EOMI. Sclerae anicteric. Conjunctivae clear. Neck: Supple. No JVD. No bruits. Heart: Normal S1, S2: Regular rhythm and rate. II/ RAZ at right upper sternal border. No gallop or rub. Lungs: Symmetrical limited air entry. Scattered wheezing, rhonchi. and crackles : R>L. Abdomen: Soft. Bowel sound positive. Non tender. No masses. Extremities: No edema. No clubbing or cyanosis. Neuro: Intact, no focal findings. AAO X3. 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 She presented to the ED with worsening cough and mild shortness of breath, fever and sputum. Found with infiltrate and CHF on CT scan. She has been treated with IV Lasix for diastolic CHF and IV antibiotics for pneumonia. Echo 06/14/17 nlef mild aortic stenosis 1) Diastolic CHF: No signigicant fluid overload now. The crackles are likely due to pneumonia. Would change Lasix to PO 40 mg BID. Monitor weights. Fluid restriction 2 liters, 2 gm NA diet. 2) CAD: Stable on medications. Continue aspirin, Plavix and metoprolol. No need for testing at this time. 3) Hypertension: Systolic BP is mildly elevated with mild bradycardia. Continue metoprolol and amlodipine.
--- NOTE | 2017-06-18 15:03 | PN ---
Progress Note, Physician History of Present Illness: PULMONARY ALERT,LAYING IN BED,NO COMPLAINTS,-SOB - Current Medication List Current Medications: Active Medications Acetaminophen (Tylenol -) 650 mg PO Q6H PRN PRN Reason: FEVER Albuterol Sulfate (Ventolin 0.083% Nebulizer Soln -) 1 amp NEB Q4H PRN PRN Reason: SHORT OF BREATH/WHEEZING Last Admin: 06/16/17 06:02 Dose: 1 amp Albuterol/Ipratropium (Duoneb -) 1 amp NEB RQID [facility] Last Admin: 06/18/17 11:39 Dose: 1 amp Amlodipine Besylate (Norvasc -) 10 mg PO DAILY [facility] Last Admin: 06/18/17 10:15 Dose: Not Given Artificial Tears (Artificial Tears) 1 drop OD TID [facility] Last Admin: 06/18/17 13:43 Dose: 1 drop Aspirin (Ecotrin -) 81 mg PO DAILY [facility] Last Admin: 06/18/17 10:15 Dose: 81 mg Benzocaine/Menthol (Cepacol Lozenge -) 1 each MM PRN PRN PRN Reason: SORE THROAT Last Admin: 06/17/17 16:53 Dose: 1 each Clopidogrel Bisulfate (Plavix -) 75 mg PO DAILY [facility] Last Admin: 06/18/17 10:15 Dose: 75 mg Docusate Sodium (Colace -) 100 mg PO HS [facility] Last Admin: 06/17/17 22:53 Dose: 100 mg Furosemide (Lasix Injection -) 40 mg IVPUSH BID@0600,1400 [facility] Last Admin: 06/18/17 13:42 Dose: 40 mg Heparin Sodium (Porcine) (Heparin -) 5,000 unit SQ BID [facility] Last Admin: 06/18/17 10:14 Dose: 5,000 unit Piperacillin Sod/Tazobactam (Sod 3.375 gm/ Dextrose) 50 mls @ 100 mls/hr IVPB Q8H-IV [facility] PRN Reason: Protocol Last Admin: 06/18/17 10:15 Dose: 100 mls/hr Insulin Aspart (Novolog Vial Sliding Scale -) 1 vial SQ ACHS [facility] PRN Reason: Protocol Last Admin: 06/18/17 11:03 Dose: Not Given Insulin Detemir (Levemir Vial) 15 units SQ BID [facility] Last Admin: 04/08/18 10:14 Dose: 15 unit Methylprednisolone Sodium Succinate (Solu-Medrol -) 40 mg IVPUSH Q12H [facility] Last Admin: 06/18/17 14:53 Dose: 40 mg Metoprolol Tartrate (Lopressor -) 100 mg PO BID [facility] Last Admin: 06/18/17 10:14 Dose: 100 mg Multivitamins/Minerals/Vitamin C (Tab-A-Vit -) 1 tab PO DAILY [facility] Last Admin: 06/18/17 10:14 Dose: 1 tab Pantoprazole Sodium (Protonix -) 40 mg PO DAILY [facility] Last Admin: 06/18/17 10:15 Dose: 40 mg Polyethylene Glycol (Miralax (For Daily Use) -) 17 gm PO DAILY [facility] Last Admin: 06/18/17 10:15 Dose: 17 gm - Objective Vital Signs: Vital Signs Temperature 97.9 F 06/18/17 14:38 Pulse Rate 52 L 06/18/17 14:38 Respiratory Rate 20 06/18/17 14:38 Blood Pressure 145/55 06/18/17 14:38 O2 Sat by Pulse Oximetry (%) 100 06/18/17 09:00 Constitutional: Yes: Well Nourished, Calm Eyes: Yes: WNL HENT: Yes: WNL Neck: Yes: WNL Cardiovascular: Yes: Regular Rate and Rhythm, S1, S2 Respiratory: Yes: Rales (BIBASILAR RALES) Gastrointestinal: Yes: Normal Bowel Sounds, Soft Extremities: Yes: WNL Edema: No Labs: CBC, BMP 06/18/17 06:00 06/18/17 06:00 INR, PTT INR 1.06 (0.82-1.09) 06/13/17 15:06 Problem List - Problems (1) Respiratory distress Code(s): R06.03 - ACUTE RESPIRATORY DISTRESS (2) Pneumonia Code(s): J18.9 - PNEUMONIA, UNSPECIFIED ORGANISM Qualifiers: Pneumonia type: due to unspecified organism Laterality: bilateral Lung location: unspecified part of lung Qualified Code(s): J18.9 - Pneumonia, unspecified organism (3) CAD (coronary artery disease) Code(s): I25.10 - ATHSCL HEART DISEASE OF [place] CORONARY ARTERY W/O ANG PCTRS Qualifiers: Coronary Disease-Associated Artery/Lesion type: [place] coronary artery [place] vs. transplanted heart: [place] heart Associated angina: without angina pectoris (4) Diabetes mellitus type 2, uncontrolled Code(s): E11.65 - TYPE 2 DIABETES MELLITUS WITH HYPERGLYCEMIA (5) History of coronary artery stent placement Code(s): Z95.5 - PRESENCE OF CORONARY ANGIOPLASTY IMPLANT AND GRAFT (6) Hyperlipidemia Code(s): E78.5 - HYPERLIPIDEMIA, UNSPECIFIED (7) Hypertension Code(s): I10 - ESSENTIAL (PRIMARY) HYPERTENSION Qualifiers: Hypertension type: essential hypertension Qualified Code(s): I10 - Essential (primary) hypertension (8) Acute kidney injury Code(s): N17.9 - ACUTE KIDNEY FAILURE, UNSPECIFIED Assessment/Plan IMP ACUTE RESPIRATORY DISTRESS BILATERAL PNEUMONIA CHF ASHD S/P STENT PULMONARY HTN HTN GABE PLAN IV ANTIBIOTICS PER ID INHALED BRONCHODILATORS O2 ANTI-TUSSIVES LASIX MONITOR LYTES,RENAL FUNCTION F/U CHEST X-RAY DAILY WT DR RAMOS Problem List - Problems (1) Respiratory distress Code(s): R06.03 - ACUTE RESPIRATORY DISTRESS (2) Pneumonia Code(s): J18.9 - PNEUMONIA, UNSPECIFIED ORGANISM Qualifiers: Pneumonia type: due to unspecified organism Laterality: bilateral Lung location: unspecified part of lung Qualified Code(s): J18.9 - Pneumonia, unspecified organism (3) CAD (coronary artery disease) Code(s): I25.10 - ATHSCL HEART DISEASE OF [place] CORONARY ARTERY W/O ANG PCTRS Qualifiers: Coronary Disease-Associated Artery/Lesion type: [place] coronary artery [place] vs. transplanted heart: [place] heart Associated angina: without angina pectoris (4) Diabetes mellitus type 2, uncontrolled Code(s): E11.65 - TYPE 2 DIABETES MELLITUS WITH HYPERGLYCEMIA (5) History of coronary artery stent placement Code(s): Z95.5 - PRESENCE OF CORONARY ANGIOPLASTY IMPLANT AND GRAFT (6) Hyperlipidemia Code(s): E78.5 - HYPERLIPIDEMIA, UNSPECIFIED (7) Hypertension Code(s): I10 - ESSENTIAL (PRIMARY) HYPERTENSION Qualifiers: Hypertension type: essential hypertension Qualified Code(s): I10 - Essential (primary) hypertension (8) Acute kidney injury Code(s): N17.9 - ACUTE KIDNEY FAILURE, UNSPECIFIED
[2017-06-18] MEDS: FUROSEMIDE 40 MG TABLET (FP) PO SCH (17:42)
[2017-06-18] MEDS: DOCUSATE SODIUM 100 MG CAPSULE (FP) PO SCH (21:01)
[2017-06-18] MEDS ORDERED: PT OWN MED DRAWER 7, Y5N ONE (21:11)
[2017-06-19] MEDS ORDERED: PIPERACILLIN/TAZOBACTAM 3.375 GM VIAL IVPB ONE ×2 (02:32→10:08)
[2017-06-19] MEDS ORDERED: DEXTROSE 5%-WATER 100 ML IVPB ONE ×2 (02:32→10:08)
[2017-06-19] MEDS: DEXTROSE 5% IVPB SCH ×2 (02:47→10:10)
[2017-06-19] MEDS: TAZOB IVPB SCH ×2 (02:47→10:10)
[2017-06-19] MEDS: PIPERACILLIN IVPB SCH ×2 (02:47→10:10)
[2017-06-19] MEDS: WATER IVPB SCH ×2 (02:47→10:10)
[2017-06-19] MEDS: methylPREDNISolone NA SUCC 40 MG/1 ML VIAL IVPUSH SCH (02:48)
[2017-06-19] MEDS: ARTIFICIAL TEARS (POLYVINYL ALCOHOL 1.4%) OPTH DROPS OD SCH ×3 (05:52→22:45)
[2017-06-19] MEDS: INSULIN SLIDING SCALE (NOVOLOG) 1 VIAL SQ SCH ×4 (06:01→22:24)
[2017-06-19] MEDS: ALBUTEROL SO4 2.5/IPRATROPIUM 0.5 INH SOL 3 ML VIAL.NEB. NEB SCH ×4 (07:15→20:29)
[2017-06-19] MEDS: FUROSEMIDE 40 MG TABLET (FP) PO SCH ×2 (10:11→18:09)
[2017-06-19] MEDS: amLODIPine BESYLATE 10 MG TABLET (FP) PO SCH (10:11)
[2017-06-19] MEDS: ASPIRIN COATED 81 MG TABLET.EC PO SCH (10:11)
[2017-06-19] MEDS: METOPROLOL TARTRATE 50 MG TABLET (FP) PO SCH ×2 (10:11→22:49)
[2017-06-19] MEDS: HEPARIN NA (PORCINE) 5,000 UNITS/ML 1ML VIAL SQ SCH ×2 (10:11→22:45)
[2017-06-19] MEDS: INSULIN DETEMIR 100 UNITS/ML MDV SQ SCH ×2 (10:11→22:24)
[2017-06-19] MEDS: PANTOPRAZOLE 40 MG TABLET (FP) PO SCH (10:11)
[2017-06-19] MEDS: MULTIVITAMINS (DAILY MVI) TABLET (FP) PO SCH (10:12)
[2017-06-19] MEDS: CLOPIDOGREL BISULFATE 75 MG TABLET (FP) PO SCH (10:12)
[2017-06-19] MEDS: POLYETHYLENE GLYCOL 3350 119 GM BTL PO SCH (10:13)
[2017-06-19 10:49] LABS: BASO % 0.2 % (0-2.0); HEMOGLOBIN 12.4 GM/dL (10.7-15.3); LYMPH % 7.6 % (8-40); MCH 27.9 pg (25.7-33.7); MCHC 33.4 g/dl (32.0-36.0); MEAN CELL VOLUME 83.6 fl (80-96); MEAN PLT VOLUME 9.3 fl (7.5-11.1); MONO % 12.5 % (3.8-10.2); NEUT % 79.7 % (42.8-82.8); PLATELET COUNT 196 K/MM3 (134-434); RBC 4.43 M/mm3 (3.60-5.2); RDW 14.5 % (11.6-15.6); WHITE BLOOD COUNT 6.1 K/mm3 (4.0-10.0)
[2017-06-19 11:19] LABS: ALBUMIN 2.7 g/dl (3.4-5.0); ANION GAP 6 (8-16); BILIRUBIN,TOTAL 0.7 mg/dL (0.2-1.0); BLOOD UREA NITROGEN 51 mg/dL (7-18); CALCIUM 8.4 mg/dL (8.5-10.1); CHLORIDE 90 mmol/L (98-107); CO2 37 mmol/L (21-32); CREATININE 1.6 mg/dL (0.55-1.02); GLUCOSE,RANDOM 279 mg/dL (74-106); POTASSIUM 4.1 mmol/L (3.5-5.1); SGOT/AST 14 U/L (15-37); SGPT/ALT 20 U/L (12-78); SODIUM 133 mmol/L (136-145); TOT PROT 5.8 g/dl (6.4-8.2)
[2017-06-19 11:20] LABS: ALK PHOS 60 U/L (45-117)
[2017-06-19] MEDS ORDERED: INSULIN (NOVOLOG) ASPART 100 UNITS/ML 10ML VIAL ONE (12:04)
--- NOTE | 2017-06-19 12:52 | PN ---
Physical Exam: SUBJECTIVE: Patient seen and examined at the bedside. Still not feeling well, feels weak. OBJECTIVE: PT ordered On magic mouth wash for mouth sores Vital Signs Period Temp Pulse Resp BP Sys/Araiza Pulse Ox Last 24 Hr 97.7 F-98.2 F 52-58 18-20 125-161/55-87 95 GENERAL: The patient is awake, alert, and fully oriented, in no acute distress. HEAD: Normal with no signs of trauma. EYES: PERRL, extraocular movements intact, sclera anicteric, conjunctiva clear. No ptosis. ENT: Ears normal, nares patent, oropharynx clear without exudates, moist mucous membranes. NECK: Trachea midline, full range of motion, supple. LUNGS: anterior lung sounds with scattered rhonchi, posterior bilateral lobes with scattered rhonchi HEART: Regular rate and rhythm ABDOMEN: Soft, nontender, nondistended, normoactive bowel sounds EXTREMITIES: no edema. NEUROLOGICAL: Normal speech, gait not observed. PSYCH: Normal mood, normal affect. SKIN: Warm, dry, normal turgor, no rashes or lesions noted Laboratory Results - last 24 hr 06/18/17 06/18/17 06/19/17 16:31 20:53 05:49 WBC RBC Hgb Hct MCV MCH MCHC RDW Plt Count MPV Neutrophils % Lymphocytes % Monocytes % Eosinophils % Basophils % Sodium Potassium Chloride Carbon Dioxide Anion Gap BUN Creatinine Creat Clearance w eGFR POC Glucometer 116 167 123 Random Glucose Calcium Magnesium Total Bilirubin AST ALT Alkaline Phosphatase Total Protein Albumin 06/19/17 06/19/17 06/19/17 10:35 10:35 11:54 WBC 6.1 D RBC 4.43 Hgb 12.4 Hct 37.0 MCV 83.6 MCH 27.9 MCHC 33.4 RDW 14.5 Plt Count 196 MPV 9.3 Neutrophils % 79.7 Lymphocytes % 7.6 L D Monocytes % 12.5 H Eosinophils % 0.0 Basophils % 0.2 Sodium 133 L Potassium 4.1 Chloride 90 L Carbon Dioxide 37 H Anion Gap 6 L BUN 51 H Creatinine 1.6 H Creat Clearance w eGFR 30.35 POC Glucometer 305 Random Glucose 279 H Calcium 8.4 L Magnesium 2.0 Total Bilirubin 0.7 AST 14 L ALT 20 Alkaline Phosphatase 60 Total Protein 5.8 L Albumin 2.7 L Active Medications Generic Name Dose Route Start Last Admin Trade Name Freq PRN Reason Stop Dose Admin Acetaminophen 650 mg 06/13/17 19:30 Tylenol - PO Q6H PRN FEVER Albuterol Sulfate 1 amp 06/14/17 08:36 06/16/17 06:02 Ventolin 0.083% Nebulizer Soln - NEB 1 amp Q4H PRN Administration SHORT OF BREATH/WHEEZING Albuterol/Ipratropium 1 amp 06/13/17 20:00 06/19/17 11:21 Duoneb - NEB 1 amp RQID [facility] Administration Amlodipine Besylate 10 mg 06/14/17 10:00 06/19/17 10:11 Norvasc - PO 10 mg DAILY [facility] Administration Artificial Tears 1 drop 06/13/17 22:00 06/19/17 05:52 Artificial Tears OD 1 drop TID [facility] Administration Aspirin 81 mg 06/14/17 10:00 06/19/17 10:11 Ecotrin - PO 81 mg DAILY [facility] Administration Benzocaine/Menthol 1 each 06/17/17 15:19 06/17/17 16:53 Cepacol Lozenge - MM 1 each PRN PRN Administration SORE THROAT Clopidogrel Bisulfate 75 mg 06/14/17 10:00 06/19/17 10:12 Plavix - PO 75 mg DAILY [facility] Administration Docusate Sodium 100 mg 06/13/17 22:00 06/18/17 21:01 Colace - PO 100 mg HS [facility] Administration Furosemide 40 mg 06/18/17 18:00 06/19/17 10:11 Lasix - PO 40 mg BID@1000,1800 [facility] Administration Heparin Sodium (Porcine) 5,000 unit 06/13/17 22:00 06/19/17 10:11 Heparin - SQ 5,000 unit BID [facility] Administration Piperacillin Sod/Tazobactam 50 mls @ 100 mls/hr 06/14/17 02:00 06/19/17 10:10 Sod 3.375 gm/ Dextrose IVPB 100 mls/hr Q8H-IV [facility] Administration Protocol Insulin Aspart 1 vial 06/17/17 08:21 06/19/17 11:30 Novolog Vial Sliding Scale - SQ 10 units ACHS [facility] Administration Protocol Insulin Detemir 15 units 06/17/17 22:00 06/19/17 10:11 Levemir Vial SQ 15 unit BID [facility] Administration Lidocaine/Aluminum/Magnesium/Simeth 5 ml 06/19/17 18:00 Magic Mouthwash *Sjr Formula* - MM Q6HPO [facility] Methylprednisolone Sodium Succinate 40 mg 06/17/17 15:45 06/19/17 02:48 Solu-Medrol - IVPUSH 40 mg Q12H [facility] Administration Metoprolol Tartrate 100 mg 06/13/17 22:00 06/19/17 10:11 Lopressor - PO 100 mg BID [facility] Administration Multivitamins/Minerals/Vitamin C 1 tab 06/14/17 10:00 06/19/17 10:12 Tab-A-Vit - PO 1 tab DAILY [facility] Administration Pantoprazole Sodium 40 mg 06/14/17 10:00 06/19/17 10:11 Protonix - PO 40 mg DAILY [facility] Administration Polyethylene Glycol 17 gm 06/14/17 10:00 06/19/17 10:13 Miralax (For Daily Use) - PO 17 gm DAILY [facility] Administration ASSESSMENT/PLAN: 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 She presented to the ED today with worsening cough and mild shortness of breath. Patient was reportedly on PO Levaquin for pneumonia but after she stopped taking Levaquin apx 2 days prior, her symptoms returned and her coughing worsened. At [facility], patient was given nebulizers but with no relief. Patient is not home oxygen dependent. During her admission, a BNP ordered by pulm showed an elevated BNP. Patient is also being treated by cardiology for CHF exacerbation which is a new diagnoss for this patient. Imaging: CT/CT Chest 06/14/2017: 1. focal mixed ground glass and solid nodular opacities in the superior segment of the right lower lobe is compatible with pneumonia. 2. Moderate-sized layering left pleural effusion and small layering right pleural effusion with multi-segment compressive atelectasis in both lung bases. 3. Upper lobe predominant mild smooth interlobular septal thickening is most likely attributed to pulmonary vascular congestion. 4. Aortic valve calcification and dense calcificatin of the mitral valve annulus. Echo: mod m valve thickening, mod TR, RV systolic pressure increase 50-60, mod aortic valve thickness, mod aortic stenosis, LV size thickenss and fx are normal , LV ej. fx is normal, trace to mild MR. Pulmonary: Pneumonia, acute Chest CT shows RLL pneumonia, left pleural effusion, right pleural effusion and atelectatis of both lung bases On Zosyn 3.375mg per ID Ordered oxygen 2 liters, scheduled duonebs On Solumedrol per pulmonary Monitor oxygen sats to maintain 92% or better on 2 liters, and wean off as tolerated Pre and post prior to d/c to evaluate for home oxygen use Influenza negative Pulmonary consult Cardiology: Elevated BNP, Acute diastolic CHF On Lasix 40mg PO BID Monitor daily weights Monitor intake and output Cardiology following Hypertension, chronic On metroplol 100mg BID, Amlodopine 10mg daily Monitor CAD (with stents) On ASA and Plavix Hyperlipedemia, chronic Lipid panel reviewed Endocrine Diabetes BGMs better controlled Monitor BGMs in the setting of steriod therapy and uptitrate coverage as needed F.E.N. Fluids: on 2 liter fluid restriction Electrolytes: daily bmp, monitor hyponatremia Nutrition: diabetic/sodium diet with 2 gram sodium Prophy: DVT: Heparin BID GI: Protonix while on steroids Disposition: full code Visit type - Emergency Visit Emergency Visit: Yes ED Registration Date: 06/13/17 Care time: The patient presented to the Emergency Department on the above date and was hospitalized for further evaluation of their emergent condition. - New Patient This patient is new to me today: No - Critical Care Critical Care patient: No - Discharge Referral Referred to [facility] No
--- NOTE | 2017-06-19 13:39 | PN ---
Progress Note (short form) - Note Progress Note: No acute events overnight. Denies CP or SOB. Some dry cough. CXR: No gross change in LLL effusion/infiltrate Intake & Output 06/16/17 06/17/17 06/18/17 06/19/17 23:59 23:59 23:59 23:59 Intake Total 800 1000 800 100 Balance 800 1000 800 100 Weight 154 lb 2 oz 149 lb 3.2 oz 143 lb 6.4 oz 140 lb 12.8 oz Last Vital Signs Temp Pulse Resp BP Pulse Ox 97.7 F 57 L 18 159/63 95 06/19/17 10:00 06/19/17 10:00 06/19/17 10:00 06/19/17 10:00 06/18/17 20:57 Active Medications Acetaminophen (Tylenol -) 650 mg PO Q6H PRN PRN Reason: FEVER Albuterol Sulfate (Ventolin 0.083% Nebulizer Soln -) 1 amp NEB Q4H PRN PRN Reason: SHORT OF BREATH/WHEEZING Last Admin: 06/16/17 06:02 Dose: 1 amp Albuterol/Ipratropium (Duoneb -) 1 amp NEB RQID [facility] Last Admin: 06/19/17 11:21 Dose: 1 amp Amlodipine Besylate (Norvasc -) 10 mg PO DAILY [facility] Last Admin: 06/19/17 10:11 Dose: 10 mg Artificial Tears (Artificial Tears) 1 drop OD TID [facility] Last Admin: 06/19/17 05:52 Dose: 1 drop Aspirin (Ecotrin -) 81 mg PO DAILY [facility] Last Admin: 06/19/17 10:11 Dose: 81 mg Benzocaine/Menthol (Cepacol Lozenge -) 1 each MM PRN PRN PRN Reason: SORE THROAT Last Admin: 06/17/17 16:53 Dose: 1 each Clopidogrel Bisulfate (Plavix -) 75 mg PO DAILY [facility] Last Admin: 06/19/17 10:12 Dose: 75 mg Docusate Sodium (Colace -) 100 mg PO HS [facility] Last Admin: 06/18/17 21:01 Dose: 100 mg Furosemide (Lasix -) 40 mg PO BID@1000,1800 [facility] Last Admin: 06/19/17 10:11 Dose: 40 mg Heparin Sodium (Porcine) (Heparin -) 5,000 unit SQ BID [facility] Last Admin: 06/19/17 10:11 Dose: 5,000 unit Piperacillin Sod/Tazobactam (Sod 3.375 gm/ Dextrose) 50 mls @ 100 mls/hr IVPB Q8H-IV [facility] PRN Reason: Protocol Last Admin: 06/19/17 10:10 Dose: 100 mls/hr Insulin Aspart (Novolog Vial Sliding Scale -) 1 vial SQ ACHS [facility] PRN Reason: Protocol Last Admin: 06/19/17 11:30 Dose: 10 units Insulin Detemir (Levemir Vial) 15 units SQ BID [facility] Last Admin: 06/19/17 10:11 Dose: 15 unit Lidocaine/Aluminum/Magnesium/Simeth (Magic Mouthwash *Sjr Formula* -) 5 ml MM Q6HPO [facility] Methylprednisolone Sodium Succinate (Solu-Medrol -) 40 mg IVPUSH Q12H [facility] Last Admin: 06/19/17 02:48 Dose: 40 mg Metoprolol Tartrate (Lopressor -) 100 mg PO BID [facility] Last Admin: 06/19/17 10:11 Dose: 100 mg Multivitamins/Minerals/Vitamin C (Tab-A-Vit -) 1 tab PO DAILY [facility] Last Admin: 06/19/17 10:12 Dose: 1 tab Pantoprazole Sodium (Protonix -) 40 mg PO DAILY [facility] Last Admin: 06/19/17 10:11 Dose: 40 mg Polyethylene Glycol (Miralax (For Daily Use) -) 17 gm PO DAILY [facility] Last Admin: 06/19/17 10:13 Dose: 17 gm Constitutional: Yes: NAD Eyes: Yes: WNL HENT: Yes: WNL Neck: Yes: WNL Cardiovascular: Yes: Regular Rate and Rhythm, S1, S2 Respiratory: Yes: Bibasilar rhonchi Left > Right Gastrointestinal: Yes: Normal Bowel Sounds, Soft Extremities: Yes: WNL Edema: No Labs: Laboratory Results - last 24 hr 06/18/17 06/18/17 06/19/17 16:31 20:53 05:49 WBC RBC Hgb Hct MCV MCH MCHC RDW Plt Count MPV Neutrophils % Lymphocytes % Monocytes % Eosinophils % Basophils % Sodium Potassium Chloride Carbon Dioxide Anion Gap BUN Creatinine Creat Clearance w eGFR POC Glucometer 116 167 123 Random Glucose Calcium Magnesium Total Bilirubin AST ALT Alkaline Phosphatase Total Protein Albumin 06/19/17 06/19/17 06/19/17 10:35 10:35 11:54 WBC 6.1 D RBC 4.43 Hgb 12.4 Hct 37.0 MCV 83.6 MCH 27.9 MCHC 33.4 RDW 14.5 Plt Count 196 MPV 9.3 Neutrophils % 79.7 Lymphocytes % 7.6 L D Monocytes % 12.5 H Eosinophils % 0.0 Basophils % 0.2 Sodium 133 L Potassium 4.1 Chloride 90 L Carbon Dioxide 37 H Anion Gap 6 L BUN 51 H Creatinine 1.6 H Creat Clearance w eGFR 30.35 POC Glucometer 305 Random Glucose 279 H Calcium 8.4 L Magnesium 2.0 Total Bilirubin 0.7 AST 14 L ALT 20 Alkaline Phosphatase 60 Total Protein 5.8 L Albumin 2.7 L Problem List - Problems (1) Respiratory distress Code(s): R06.03 - ACUTE RESPIRATORY DISTRESS (2) Pneumonia Code(s): J18.9 - PNEUMONIA, UNSPECIFIED ORGANISM Qualifiers: Pneumonia type: due to unspecified organism Laterality: bilateral Lung location: unspecified part of lung Qualified Code(s): J18.9 - Pneumonia, unspecified organism (3) CAD (coronary artery disease) Code(s): I25.10 - ATHSCL HEART DISEASE OF [place] CORONARY ARTERY W/O ANG PCTRS Qualifiers: Coronary Disease-Associated Artery/Lesion type: [place] coronary artery [place] vs. transplanted heart: [place] heart Associated angina: without angina pectoris (4) Diabetes mellitus type 2, uncontrolled Code(s): E11.65 - TYPE 2 DIABETES MELLITUS WITH HYPERGLYCEMIA (5) History of coronary artery stent placement Code(s): Z95.5 - PRESENCE OF CORONARY ANGIOPLASTY IMPLANT AND GRAFT (6) Hyperlipidemia Code(s): E78.5 - HYPERLIPIDEMIA, UNSPECIFIED (7) Hypertension Code(s): I10 - ESSENTIAL (PRIMARY) HYPERTENSION Qualifiers: Hypertension type: essential hypertension Qualified Code(s): I10 - Essential (primary) hypertension (8) Acute kidney injury Code(s): N17.9 - ACUTE KIDNEY FAILURE, UNSPECIFIED Assessment/Plan IMP ACUTE RESPIRATORY DISTRESS BILATERAL PNEUMONIA CHF ASHD S/P STENT PULMONARY HTN HTN GABE PLAN IV ANTIBIOTICS PER ID INHALED BRONCHODILATORS O2 ANTI-TUSSIVES LASIX TAPER MEDROL SHOULD REPEAT CXR IN 4 TO 6 WEEKS AFTER D/C DR HELLER
--- NOTE | 2017-06-19 16:03 | PN ---
Progress Note, Physician Chief Complaint: Cough is improving History of Present Illness: This is an 89 year old with a significant past medical history of CAD (with stents), diabetes mellitus, hypertension, hyperlipidemia, CKD, OA, bronchitis and macular degeneration. She presented to the ED with worsening cough and mild shortness of breath, fever and sputum. Found with infiltrate and CHF on CT scan. She had been treated with IV Lasix for diastolic CHF and IV antibiotics for pneumonia. Echo 06/14/17 Normal EF and mild aortic stenosis - Current Medication List Current Medications: Active Medications Acetaminophen (Tylenol -) 650 mg PO Q6H PRN PRN Reason: FEVER Albuterol Sulfate (Ventolin 0.083% Nebulizer Soln -) 1 amp NEB Q4H PRN PRN Reason: SHORT OF BREATH/WHEEZING Last Admin: 06/16/17 06:02 Dose: 1 amp Albuterol/Ipratropium (Duoneb -) 1 amp NEB RQID [facility] Last Admin: 06/19/17 11:21 Dose: 1 amp Amlodipine Besylate (Norvasc -) 10 mg PO DAILY [facility] Last Admin: 06/19/17 10:11 Dose: 10 mg Artificial Tears (Artificial Tears) 1 drop OD TID [facility] Last Admin: 06/19/17 14:57 Dose: 1 drop Aspirin (Ecotrin -) 81 mg PO DAILY [facility] Last Admin: 06/19/17 10:11 Dose: 81 mg Benzocaine/Menthol (Cepacol Lozenge -) 1 each MM PRN PRN PRN Reason: SORE THROAT Last Admin: 06/17/17 16:53 Dose: 1 each Clopidogrel Bisulfate (Plavix -) 75 mg PO DAILY [facility] Last Admin: 06/19/17 10:12 Dose: 75 mg Docusate Sodium (Colace -) 100 mg PO HS [facility] Last Admin: 06/18/17 21:01 Dose: 100 mg Furosemide (Lasix -) 40 mg PO BID@1000,1800 [facility] Last Admin: 06/19/17 10:11 Dose: 40 mg Heparin Sodium (Porcine) (Heparin -) 5,000 unit SQ BID [facility] Last Admin: 06/19/17 10:11 Dose: 5,000 unit Insulin Aspart (Novolog Vial Sliding Scale -) 1 vial SQ ACHS [facility] PRN Reason: Protocol Last Admin: 06/19/17 11:30 Dose: 10 units Insulin Detemir (Levemir Vial) 15 units SQ BID [facility] Last Admin: 06/19/17 10:11 Dose: 15 unit Lidocaine/Aluminum/Magnesium/Simeth (Magic Mouthwash *Sjr Formula* -) 5 ml MM Q6HPO [facility] Methylprednisolone Sodium Succinate (Solu-Medrol -) 40 mg IVPUSH DAILY [facility] Metoprolol Tartrate (Lopressor -) 100 mg PO BID [facility] Last Admin: 06/19/17 10:11 Dose: 100 mg Multivitamins/Minerals/Vitamin C (Tab-A-Vit -) 1 tab PO DAILY [facility] Last Admin: 06/19/17 10:12 Dose: 1 tab Pantoprazole Sodium (Protonix -) 40 mg PO DAILY [facility] Last Admin: 06/19/17 10:11 Dose: 40 mg Polyethylene Glycol (Miralax (For Daily Use) -) 17 gm PO DAILY [facility] Last Admin: 06/19/17 10:13 Dose: 17 gm - Objective Vital Signs: Vital Signs Temperature 98.0 F 06/19/17 15:06 Pulse Rate 56 L 06/19/17 15:06 Respiratory Rate 18 06/19/17 15:06 Blood Pressure 127/57 06/19/17 15:06 O2 Sat by Pulse Oximetry (%) 95 06/18/17 20:57 Constitutional: Yes: No Distress Eyes: Yes: WNL HENT: Yes: WNL, Tonsillar Exudate Cardiovascular: Yes: Regular Rate and Rhythm (Normal S1, S2. II/ RAZ at right upper sternal border. No gallop or rub.) Respiratory: Yes: CTA Bilaterally (with minimal basial crackles) Gastrointestinal: Yes: Normal Bowel Sounds Edema: No Neurological: Yes: Alert, Oriented (Non focal) Labs: CBC, BMP 06/19/17 10:35 06/19/17 10:35 INR, PTT INR 1.06 (0.82-1.09) 06/13/17 15:06 Assessment/Plan Diastolic CHF: No signigicant fluid overload now. The crackles have improved. Continue Lasix PO 40 mg BID. Fluid restriction 2 liters, 2 gm NA diet. CAD: Stable on medications. Continue aspirin, Plavix and metoprolol. No need for testing at this time. Hypertension: Systolic BP is mildly elevated with mild bradycardia. Continue metoprolol and amlodipine.
[2017-06-19] MEDS ORDERED: INSULIN DETEMIR 100 UNITS/ML MDV SQ ONE (18:15)
[2017-06-19] MEDS: MAG HYDROX/ALH/SMC/DPHA/LIDO 240 ML MOUTHWASH MM SCH (19:49)
--- NOTE | 2017-06-19 21:04 | PN ---
Progress Note, Physician History of Present Illness: patient feeling much better some dry cough - Current Medication List Current Medications: Active Medications Acetaminophen (Tylenol -) 650 mg PO Q6H PRN PRN Reason: FEVER Albuterol Sulfate (Ventolin 0.083% Nebulizer Soln -) 1 amp NEB Q4H PRN PRN Reason: SHORT OF BREATH/WHEEZING Last Admin: 06/16/17 06:02 Dose: 1 amp Albuterol/Ipratropium (Duoneb -) 1 amp NEB RQID [facility] Last Admin: 06/19/17 20:29 Dose: 1 amp Amlodipine Besylate (Norvasc -) 10 mg PO DAILY [facility] Last Admin: 06/19/17 10:11 Dose: 10 mg Artificial Tears (Artificial Tears) 1 drop OD TID [facility] Last Admin: 06/19/17 14:57 Dose: 1 drop Aspirin (Ecotrin -) 81 mg PO DAILY [facility] Last Admin: 06/19/17 10:11 Dose: 81 mg Benzocaine/Menthol (Cepacol Lozenge -) 1 each MM PRN PRN PRN Reason: SORE THROAT Last Admin: 06/17/17 16:53 Dose: 1 each Clopidogrel Bisulfate (Plavix -) 75 mg PO DAILY [facility] Last Admin: 06/19/17 10:12 Dose: 75 mg Docusate Sodium (Colace -) 100 mg PO HS [facility] Last Admin: 06/18/17 21:01 Dose: 100 mg Furosemide (Lasix -) 40 mg PO BID@1000,1800 [facility] Last Admin: 06/19/17 18:09 Dose: 40 mg Heparin Sodium (Porcine) (Heparin -) 5,000 unit SQ BID [facility] Last Admin: 06/19/17 10:11 Dose: 5,000 unit Insulin Aspart (Novolog Vial Sliding Scale -) 1 vial SQ ACHS [facility] PRN Reason: Protocol Last Admin: 06/19/17 17:22 Dose: Not Given Insulin Detemir (Levemir Vial) 15 units SQ BID [facility] Last Admin: 06/19/17 10:11 Dose: 15 unit Lidocaine/Aluminum/Magnesium/Simeth (Magic Mouthwash *Sjr Formula* -) 5 ml MM Q6HPO [facility] Last Admin: 06/19/17 19:49 Dose: Not Given Methylprednisolone Sodium Succinate (Solu-Medrol -) 40 mg IVPUSH DAILY [facility] Metoprolol Tartrate (Lopressor -) 100 mg PO BID [facility] Last Admin: 06/19/17 10:11 Dose: 100 mg Multivitamins/Minerals/Vitamin C (Tab-A-Vit -) 1 tab PO DAILY [facility] Last Admin: 06/19/17 10:12 Dose: 1 tab Pantoprazole Sodium (Protonix -) 40 mg PO DAILY [facility] Last Admin: 06/19/17 10:11 Dose: 40 mg Polyethylene Glycol (Miralax (For Daily Use) -) 17 gm PO DAILY [facility] Last Admin: 06/19/17 10:13 Dose: 17 gm - Objective Vital Signs: Vital Signs Temperature 97.9 F 06/19/17 17:18 Pulse Rate 57 L 06/19/17 17:18 Respiratory Rate 18 06/19/17 17:18 Blood Pressure 127/65 06/19/17 17:18 O2 Sat by Pulse Oximetry (%) 95 06/19/17 09:00 Constitutional: Yes: No Distress, Calm Cardiovascular: Yes: Regular Rate and Rhythm Respiratory: Yes: Regular, Poor Air Entry Gastrointestinal: Yes: Normal Bowel Sounds, Soft Musculoskeletal: Yes: WNL Extremities: Yes: WNL Neurological: Yes: Alert, Oriented Psychiatric: Yes: Alert, Oriented Labs: CBC, BMP 06/19/17 10:35 06/19/17 10:35 INR, PTT INR 1.06 (0.82-1.09) 06/13/17 15:06 Assessment/Plan Problem List - Problems (1) Respiratory distress Code(s): R06.03 - ACUTE RESPIRATORY DISTRESS (2) Pneumonia Code(s): J18.9 - PNEUMONIA, UNSPECIFIED ORGANISM Qualifiers: Pneumonia type: due to unspecified organism Laterality: bilateral Lung location: unspecified part of lung Qualified Code(s): J18.9 - Pneumonia, unspecified organism (3) CAD (coronary artery disease) Code(s): I25.10 - ATHSCL HEART DISEASE OF [place] CORONARY ARTERY W/O ANG PCTRS Qualifiers: Coronary Disease-Associated Artery/Lesion type: [place] coronary artery [place] vs. transplanted heart: [place] heart Associated angina: without angina pectoris (4) Diabetes mellitus type 2, uncontrolled Code(s): E11.65 - TYPE 2 DIABETES MELLITUS WITH HYPERGLYCEMIA (5) History of coronary artery stent placement Code(s): Z95.5 - PRESENCE OF CORONARY ANGIOPLASTY IMPLANT AND GRAFT (6) Hyperlipidemia Code(s): E78.5 - HYPERLIPIDEMIA, UNSPECIFIED (7) Hypertension Code(s): I10 - ESSENTIAL (PRIMARY) HYPERTENSION Qualifiers: Hypertension type: essential hypertension Qualified Code(s): I10 - Essential (primary) hypertension (8) Acute kidney injury Code(s): N17.9 - ACUTE KIDNEY FAILURE, UNSPECIFIED plan stopped abx will watch patient post abx incentive isabela pul on case rest as per the team
[2017-06-19] MEDS ORDERED: DEXTROSE 50%-WATER - 25 GM/50 ML VIAL IVPUSH ONE (22:25)
[2017-06-19] MEDS ORDERED: DEXTROSE 50%-WATER 25 GM/50 ML DISP.SYRIN ONE (22:30)
[2017-06-19] MEDS: DOCUSATE SODIUM 100 MG CAPSULE (FP) PO SCH (22:45)
[2017-06-20] MEDS: MAG HYDROX/ALH/SMC/DPHA/LIDO 240 ML MOUTHWASH MM SCH ×3 (00:07→11:42)
[2017-06-20] MEDS: ARTIFICIAL TEARS (POLYVINYL ALCOHOL 1.4%) OPTH DROPS OD SCH (06:11)
[2017-06-20] MEDS: INSULIN SLIDING SCALE (NOVOLOG) 1 VIAL SQ SCH ×2 (06:12→11:42)
[2017-06-20] MEDS: ALBUTEROL SO4 2.5/IPRATROPIUM 0.5 INH SOL 3 ML VIAL.NEB. NEB SCH ×2 (08:53→12:23)
--- NOTE | 2017-06-20 09:17 | DS ---
Physical Exam: SUBJECTIVE: Patient seen and examined at the bedside. 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 She feels much weaker and wants to a natural . Emotional support provided. 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 She was treated for a bilateral pneumonia during hospitalization and now has new onset diastolic heart failure. Please consider palliative care/comfort care at [facility]. Vital Signs Period Temp Pulse Resp BP Sys/Araiza Pulse Ox Last 24 Hr 97.4 F-98.0 F 56-65 18-18 127-160/52-70 96 PHYSICAL EXAM GENERAL: The patient is awake, alert, and fully oriented, weak HEAD: Normal with no signs of trauma. EYES: PERRL, extraocular movements intact, sclera anicteric, conjunctiva clear. ENT: Ears normal, nares patent, oropharynx clear without exudates, moist mucous membranes. NECK: Trachea midline, full range of motion, supple. LUNGS: left lung with mostly clear lung sounds, right lung with scattered crackles. HEART: Regular rate and rhythm ABDOMEN: Soft, nontender, nondistended, normoactive bowel sounds, no guarding, no rebound, no hepatosplenomegaly, no masses. EXTREMITIES: 2+ pulses, warm, well-perfused, no edema. NEUROLOGICAL:Normal speech, gait not observed. PSYCH: Normal mood, normal affect. SKIN: Warm, dry, normal turgor, no rashes or lesions noted. LABS Laboratory Results - last 24 hr 06/19/17 06/19/17 06/19/17 10:35 10:35 11:54 WBC 6.1 D RBC 4.43 Hgb 12.4 Hct 37.0 MCV 83.6 MCH 27.9 MCHC 33.4 RDW 14.5 Plt Count 196 MPV 9.3 Neutrophils % 79.7 Lymphocytes % 7.6 L D Monocytes % 12.5 H Eosinophils % 0.0 Basophils % 0.2 Sodium 133 L Potassium 4.1 Chloride 90 L Carbon Dioxide 37 H Anion Gap 6 L BUN 51 H Creatinine 1.6 H Creat Clearance w eGFR 30.35 POC Glucometer 305 Random Glucose 279 H Calcium 8.4 L Magnesium 2.0 Total Bilirubin 0.7 AST 14 L ALT 20 Alkaline Phosphatase 60 Total Protein 5.8 L Albumin 2.7 L 04/11/2806/19/17 06/20/17 16:41 23:31 03:38 WBC RBC Hgb Hct MCV MCH MCHC RDW Plt Count MPV Neutrophils % Lymphocytes % Monocytes % Eosinophils % Basophils % Sodium Potassium Chloride Carbon Dioxide Anion Gap BUN Creatinine Creat Clearance w eGFR POC Glucometer 89 313 215 Random Glucose Calcium Magnesium Total Bilirubin AST ALT Alkaline Phosphatase Total Protein Albumin 06/20/17 06:10 WBC RBC Hgb Hct MCV MCH MCHC RDW Plt Count MPV Neutrophils % Lymphocytes % Monocytes % Eosinophils % Basophils % Sodium Potassium Chloride Carbon Dioxide Anion Gap BUN Creatinine Creat Clearance w eGFR POC Glucometer 160 Random Glucose Calcium Magnesium Total Bilirubin AST ALT Alkaline Phosphatase Total Protein Albumin HOSPITAL COURSE: Date of Admission:06/13/17 Date of Discharge: 06/20/17 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 She presented to the ED on 06/13/2017 with worsening cough and mild shortness of breath. Patient was reportedly on PO Levaquin for pneumonia but after she stopped taking Levaquin apx 2 days prior, her symptoms returned and her coughing worsened. At [facility], patient was given nebulizers but with no relief. Patient is not home oxygen dependent. During her admission, a BNP ordered by pulm showed an elevated BNP. Patient is also being treated by cardiology for new onset diastolic CHF. Imaging: CT/CT Chest 06/14/2017: 1. focal mixed ground glass and solid nodular opacities in the superior segment of the right lower lobe is compatible with pneumonia. 2. Moderate-sized layering left pleural effusion and small layering right pleural effusion with multi-segment compressive atelectasis in both lung bases. 3. Upper lobe predominant mild smooth interlobular septal thickening is most likely attributed to pulmonary vascular congestion. 4. Aortic valve calcification and dense calcificatin of the mitral valve annulus. Echo: mod m valve thickening, mod TR, RV systolic pressure increase 50-60, mod aortic valve thickness, mod aortic stenosis, LV size thickenss and fx are normal , LV ej. fx is normal, trace to mild MR. Pulmonary: Pneumonia, treated with a 7 day course of IV antibiotics (zosyn) Chest CT on admission shows RLL pneumonia, left pleural effusion, right pleural effusion and atelectatis of both lung bases To be sent back to [facility] on 2 liters of nasal cannula for comfort, duonebs as needed q4 for shortness of breath, monitor off antibiotics Prednisone 40mg daily, please taper off steriods slowly every 3 days as tolerated Monitor oxygen sats to maintain 92% or better on 2 liters, and wean off as tolerated Influenza negative Cardiology: Elevated BNP, Acute diastolic CHF On Lasix 40mg PO BID Monitor daily weights Monitor intake and output Cardiology followed patient during hospitalization Referral in d/c package for follow up appointment Hypertension, chronic On metroplol 100mg BID, Amlodopine 10mg daily Monitor BP CAD (with stents) On ASA and Plavix Hyperlipedemia, chronic Renal: GABE, acute Secondary to diuretic therapy Monitor bun/creat outpatient Endocrine Diabetes elevated in the setting of steriod therapy Monitor BGMs in the setting of steriod therapy and uptitrate coverage as needed Disposition: DNR/DNI as per patient's wishes. MOLST form in chart. Minutes to complete discharge: 60 Discharge Summary Reason For Visit: PNEUMONIA Current Active Problems Acute kidney injury (Acute) CHF (congestive heart failure) (Acute) Pneumonia (Acute) Respiratory distress (Acute) Condition: Guarded - Instructions Diet, Activity, Other Instructions: [facility] Facility: Patient discharged back to [facility] Consider palliative care as per patient's wishes. Monitor patient off antibiotics. Monitor blood sugars while on steriods and taper off every 3 days as per primary MD/CLERICAL ASSOCIATE. Please call me with any questions that you may have. aMry Jackson, KENNEY [phone] [facility] Referrals: Gianni Nogueira MD [Primary Care Provider] - 2 Weeks Elfego Mchugh MD [Staff Physician] - Disposition: RESIDENTIAL FACILITY - Home Medications Comprehensive Discharge Medication List: Ambulatory Orders Acetaminophen [Tylenol .Extra-Strength -] 1,000 mg PO Q12H 11/20/16 Amlodipine Besylate [Norvasc -] 10 mg PO DAILY 11/20/16 Aspirin [Aspirin EC] 81 mg PO DAILY 11/20/16 Cholecalciferol (Vitamin D3) [Vitamin D3] 50,000 cap PO MONTHLY 11/20/16 Clopidogrel Bisulfate [Plavix -] 75 mg PO DAILY 11/20/16 Cyanocobalamin (Vitamin B-12) [Cyanocobalamin Injection] 1,000 mcg IM MONTHLY Docusate Sodium [Colace -] 100 mg PO HS 11/20/16 Metoprolol Tartrate 100 mg PO BID 11/20/16 Multivitamin [One Daily] 1 tablet PO DAILY 11/20/16 Pen Needle, Diabetic, Safety [Novofine Autocover] 1 each MC TID 11/20/16 Polyethylene Glycol 3350 [Miralax 119 gm Btl -] 17 gm PO DAILY 11/20/16 Polyvinyl Alcohol [Artificial Tears] 1 drop OD TID 11/20/16 Insulin (Levemir) [Levemir Vial] 15 units SQ HS #1 vial 11/21/16 Insulin Sliding Scale [Novolog Vial Sliding Scale -] 1 vial SQ ACHS units 11/21 Insulin Sliding Scale [Novolog Vial Sliding Scale -] 1 vial SQ ACHS units 11/21 This patient is new to me today: No Emergency Visit: Yes ED Registration Date: 06/13/17 Care time: The patient presented to the Emergency Department on the above date and was hospitalized for further evaluation of their emergent condition. Critical Care patient: No - Discharge Referral Referred to [facility] No
[2017-06-20 09:33] VITALS: BP 179/55; TEMP 97.7
[2017-06-20] MEDS ORDERED: predniSONE 20 MG TABLET (UD) PO SCH (10:00)
[2017-06-20] MEDS ORDERED: methylPREDNISolone NA SUCC 40 MG/1 ML VIAL IVPUSH SCH (10:00)
[2017-06-20] MEDS: POLYETHYLENE GLYCOL 3350 119 GM BTL PO SCH (10:11)
[2017-06-20] MEDS: amLODIPine BESYLATE 10 MG TABLET (FP) PO SCH (10:11)
[2017-06-20] MEDS: METOPROLOL TARTRATE 50 MG TABLET (FP) PO SCH (10:12)
[2017-06-20] MEDS: CLOPIDOGREL BISULFATE 75 MG TABLET (FP) PO SCH (10:12)
[2017-06-20] MEDS: FUROSEMIDE 40 MG TABLET (FP) PO SCH (10:12)
[2017-06-20] MEDS: PANTOPRAZOLE 40 MG TABLET (FP) PO SCH (10:12)
[2017-06-20] MEDS: MULTIVITAMINS (DAILY MVI) TABLET (FP) PO SCH (10:12)
[2017-06-20] MEDS: ASPIRIN COATED 81 MG TABLET.EC PO SCH (10:13)
[2017-06-20] MEDS: HEPARIN NA (PORCINE) 5,000 UNITS/ML 1ML VIAL SQ SCH (10:13)
[2017-06-20 10:23] VITALS: PULSE 68
[2017-06-20] MEDS: INSULIN DETEMIR 100 UNITS/ML MDV SQ SCH (10:26)
[2017-06-20 10:47] LABS: BASO % 0.3 % (0-2.0); EOS % 0.8 % (0-4.5); HEMATOCRIT 39.1 % (32.4-45.2); HEMOGLOBIN 12.9 GM/dL (10.7-15.3); LYMPH % 8.1 % (8-40); MCH 27.7 pg (25.7-33.7); MEAN CELL VOLUME 83.8 fl (80-96); MEAN PLT VOLUME 9.6 fl (7.5-11.1); MONO % 10.5 % (3.8-10.2); NEUT % 80.3 % (42.8-82.8); PLATELET COUNT 199 K/MM3 (134-434); RBC 4.67 M/mm3 (3.60-5.2); RDW 14.2 % (11.6-15.6); WHITE BLOOD COUNT 9.3 K/mm3 (4.0-10.0)
[2017-06-20 11:09] LABS: ALBUMIN 2.7 g/dl (3.4-5.0); ANION GAP 7 (8-16); BILIRUBIN,TOTAL 0.6 mg/dL (0.2-1.0); BLOOD UREA NITROGEN 55 mg/dL (7-18); CALCIUM 8.5 mg/dL (8.5-10.1); CHLORIDE 89 mmol/L (98-107); CO2 37 mmol/L (21-32); CREATININE 1.7 mg/dL (0.55-1.02); POTASSIUM 3.6 mmol/L (3.5-5.1); SGOT/AST 13 U/L (15-37); SGPT/ALT 17 U/L (12-78); SODIUM 133 mmol/L (136-145); TOT PROT 5.8 g/dl (6.4-8.2)
[2017-06-20 11:10] LABS: ALK PHOS 60 U/L (45-117)
[2017-06-20 11:37] LABS: GLUCOSE,RANDOM 341 mg/dL (74-106)
--- NOTE | 2017-06-20 12:51 | PN ---
Progress Note (short form) - Note Progress Note: No change in overall condition. Appears weak. No acute events overnight. Some dry cough. Intake & Output 06/17/17 06/18/17 06/19/17 06/20/17 23:59 23:59 23:59 23:59 Intake Total 1000 800 770 100 Balance 1000 800 770 100 Weight 149 lb 3.2 oz 143 lb 6.4 oz 140 lb 12.8 oz 148 lb 8 oz Last Vital Signs Temp Pulse Resp BP Pulse Ox 97.7 F 68 20 179/55 98 06/20/17 09:32 06/20/17 10:18 06/20/17 09:32 06/20/17 09:32 06/20/17 10:18 Active Medications Acetaminophen (Tylenol -) 650 mg PO Q6H PRN PRN Reason: FEVER Albuterol Sulfate (Ventolin 0.083% Nebulizer Soln -) 1 amp NEB Q4H PRN PRN Reason: SHORT OF BREATH/WHEEZING Last Admin: 06/16/17 06:02 Dose: 1 amp Albuterol/Ipratropium (Duoneb -) 1 amp NEB RQID [facility] Last Admin: 06/20/17 12:23 Dose: 1 amp Amlodipine Besylate (Norvasc -) 10 mg PO DAILY [facility] Last Admin: 06/20/17 10:11 Dose: 10 mg Artificial Tears (Artificial Tears) 1 drop OD TID [facility] Last Admin: 06/20/17 06:11 Dose: 1 drop Aspirin (Ecotrin -) 81 mg PO DAILY [facility] Last Admin: 06/20/17 10:13 Dose: 81 mg Benzocaine/Menthol (Cepacol Lozenge -) 1 each MM PRN PRN PRN Reason: SORE THROAT Last Admin: 06/17/17 16:53 Dose: 1 each Clopidogrel Bisulfate (Plavix -) 75 mg PO DAILY [facility] Last Admin: 06/20/17 10:12 Dose: 75 mg Docusate Sodium (Colace -) 100 mg PO HS [facility] Last Admin: 06/19/17 22:45 Dose: 100 mg Furosemide (Lasix -) 40 mg PO BID@1000,1800 [facility] Last Admin: 06/20/17 10:12 Dose: 40 mg Heparin Sodium (Porcine) (Heparin -) 5,000 unit SQ BID [facility] Last Admin: 06/20/17 10:13 Dose: 5,000 unit Insulin Aspart (Novolog Vial Sliding Scale -) 1 vial SQ ACHS [facility] PRN Reason: Protocol Last Admin: 06/20/17 11:42 Dose: 12 units Insulin Detemir (Levemir Vial) 15 units SQ BID [facility] Last Admin: 06/20/17 10:26 Dose: 15 unit Lidocaine/Aluminum/Magnesium/Simeth (Magic Mouthwash *Sjr Formula* -) 5 ml MM Q6HPO [facility] Last Admin: 06/20/17 11:42 Dose: 5 ml Metoprolol Tartrate (Lopressor -) 100 mg PO BID [facility] Last Admin: 06/20/17 10:12 Dose: 100 mg Multivitamins/Minerals/Vitamin C (Tab-A-Vit -) 1 tab PO DAILY [facility] Last Admin: 06/20/17 10:12 Dose: 1 tab Pantoprazole Sodium (Protonix -) 40 mg PO DAILY [facility] Last Admin: 06/20/17 10:12 Dose: 40 mg Polyethylene Glycol (Miralax (For Daily Use) -) 17 gm PO DAILY [facility] Last Admin: 06/20/17 10:11 Dose: 17 gm Prednisone (Deltasone -) 40 mg PO DAILY [facility] Last Admin: 06/20/17 10:12 Dose: 40 mg Constitutional: Yes: NAD Eyes: Yes: WNL HENT: Yes: WNL Neck: Yes: WNL Cardiovascular: Yes: Regular Rate and Rhythm, S1, S2 Respiratory: Yes: Bibasilar rhonchi Left > Right Gastrointestinal: Yes: Normal Bowel Sounds, Soft Extremities: Yes: WNL Edema: No Labs: Laboratory Results - last 24 hr 06/19/17 06/19/17 06/20/17 16:41 23:31 03:38 WBC RBC Hgb Hct MCV MCH MCHC RDW Plt Count MPV Neutrophils % Lymphocytes % Monocytes % Eosinophils % Basophils % Sodium Potassium Chloride Carbon Dioxide Anion Gap BUN Creatinine Creat Clearance w eGFR POC Glucometer 89 313 215 Random Glucose Calcium Total Bilirubin AST ALT Alkaline Phosphatase Total Protein Albumin 06/20/17 06/20/17 06/20/17 06:10 10:30 10:30 WBC 9.3 D RBC 4.67 Hgb 12.9 Hct 39.1 MCV 83.8 MCH 27.7 MCHC 33.0 RDW 14.2 Plt Count 199 MPV 9.6 Neutrophils % 80.3 Lymphocytes % 8.1 Monocytes % 10.5 H Eosinophils % 0.8 D Basophils % 0.3 Sodium 133 L Potassium 3.6 Chloride 89 L Carbon Dioxide 37 H Anion Gap 7 L BUN 55 H Creatinine 1.7 H Creat Clearance w eGFR 28.30 POC Glucometer 160 Random Glucose 341 H* Calcium 8.5 Total Bilirubin 0.6 AST 13 L ALT 17 Alkaline Phosphatase 60 Total Protein 5.8 L Albumin 2.7 L 06/20/17 11:39 WBC RBC Hgb Hct MCV MCH MCHC RDW Plt Count MPV Neutrophils % Lymphocytes % Monocytes % Eosinophils % Basophils % Sodium Potassium Chloride Carbon Dioxide Anion Gap BUN Creatinine Creat Clearance w eGFR POC Glucometer 355 Random Glucose Calcium Total Bilirubin AST ALT Alkaline Phosphatase Total Protein Albumin Problem List - Problems (1) Respiratory distress Code(s): R06.03 - ACUTE RESPIRATORY DISTRESS (2) Pneumonia Code(s): J18.9 - PNEUMONIA, UNSPECIFIED ORGANISM Qualifiers: Pneumonia type: due to unspecified organism Laterality: bilateral Lung location: unspecified part of lung Qualified Code(s): J18.9 - Pneumonia, unspecified organism (3) CAD (coronary artery disease) Code(s): I25.10 - ATHSCL HEART DISEASE OF [place] CORONARY ARTERY W/O ANG PCTRS Qualifiers: Coronary Disease-Associated Artery/Lesion type: [place] coronary artery [place] vs. transplanted heart: [place] heart Associated angina: without angina pectoris (4) Diabetes mellitus type 2, uncontrolled Code(s): E11.65 - TYPE 2 DIABETES MELLITUS WITH HYPERGLYCEMIA (5) History of coronary artery stent placement Code(s): Z95.5 - PRESENCE OF CORONARY ANGIOPLASTY IMPLANT AND GRAFT (6) Hyperlipidemia Code(s): E78.5 - HYPERLIPIDEMIA, UNSPECIFIED (7) Hypertension Code(s): I10 - ESSENTIAL (PRIMARY) HYPERTENSION Qualifiers: Hypertension type: essential hypertension Qualified Code(s): I10 - Essential (primary) hypertension (8) Acute kidney injury Code(s): N17.9 - ACUTE KIDNEY FAILURE, UNSPECIFIED Assessment/Plan IMP ACUTE RESPIRATORY DISTRESS BILATERAL PNEUMONIA CHF ASHD S/P STENT PULMONARY HTN HTN GABE PLAN OFF ABX INHALED BRONCHODILATORS O2 ANTI-TUSSIVES LASIX CAN REPEAT CXR IN 4 TO 6 WEEKS AFTER D/C D/C PLANNING DR HELLER
--- NOTE | 2017-06-20 13:23 | PN ---
Progress Note, Physician History of Present Illness: doing well family in room no complaints breathing well some dry cough stable off of abx - Current Medication List Current Medications: Active Medications Acetaminophen (Tylenol -) 650 mg PO Q6H PRN PRN Reason: FEVER Albuterol Sulfate (Ventolin 0.083% Nebulizer Soln -) 1 amp NEB Q4H PRN PRN Reason: SHORT OF BREATH/WHEEZING Last Admin: 06/16/17 06:02 Dose: 1 amp Albuterol/Ipratropium (Duoneb -) 1 amp NEB RQID [facility] Last Admin: 06/20/17 12:23 Dose: 1 amp Amlodipine Besylate (Norvasc -) 10 mg PO DAILY [facility] Last Admin: 06/20/17 10:11 Dose: 10 mg Artificial Tears (Artificial Tears) 1 drop OD TID [facility] Last Admin: 06/20/17 06:11 Dose: 1 drop Aspirin (Ecotrin -) 81 mg PO DAILY [facility] Last Admin: 06/20/17 10:13 Dose: 81 mg Benzocaine/Menthol (Cepacol Lozenge -) 1 each MM PRN PRN PRN Reason: SORE THROAT Last Admin: 06/17/17 16:53 Dose: 1 each Clopidogrel Bisulfate (Plavix -) 75 mg PO DAILY [facility] Last Admin: 06/20/17 10:12 Dose: 75 mg Docusate Sodium (Colace -) 100 mg PO HS [facility] Last Admin: 06/19/17 22:45 Dose: 100 mg Furosemide (Lasix -) 40 mg PO BID@1000,1800 [facility] Last Admin: 06/20/17 10:12 Dose: 40 mg Heparin Sodium (Porcine) (Heparin -) 5,000 unit SQ BID [facility] Last Admin: 06/20/17 10:13 Dose: 5,000 unit Insulin Aspart (Novolog Vial Sliding Scale -) 1 vial SQ ACHS [facility] PRN Reason: Protocol Last Admin: 06/20/17 11:42 Dose: 12 units Insulin Detemir (Levemir Vial) 15 units SQ BID [facility] Last Admin: 06/20/17 10:26 Dose: 15 unit Lidocaine/Aluminum/Magnesium/Simeth (Magic Mouthwash *Sjr Formula* -) 5 ml MM Q6HPO [facility] Last Admin: 06/20/17 11:42 Dose: 5 ml Metoprolol Tartrate (Lopressor -) 100 mg PO BID [facility] Last Admin: 06/20/17 10:12 Dose: 100 mg Multivitamins/Minerals/Vitamin C (Tab-A-Vit -) 1 tab PO DAILY [facility] Last Admin: 06/20/17 10:12 Dose: 1 tab Pantoprazole Sodium (Protonix -) 40 mg PO DAILY [facility] Last Admin: 06/20/17 10:12 Dose: 40 mg Polyethylene Glycol (Miralax (For Daily Use) -) 17 gm PO DAILY [facility] Last Admin: 06/20/17 10:11 Dose: 17 gm Prednisone (Deltasone -) 40 mg PO DAILY [facility] Last Admin: 06/20/17 10:12 Dose: 40 mg - Objective Vital Signs: Vital Signs Temperature 97.7 F 06/20/17 09:32 Pulse Rate 68 06/20/17 10:18 Respiratory Rate 20 06/20/17 09:32 Blood Pressure 179/55 06/20/17 09:32 O2 Sat by Pulse Oximetry (%) 98 06/20/17 10:18 Constitutional: Yes: No Distress, Calm Cardiovascular: Yes: Regular Rate and Rhythm Respiratory: Yes: Regular, CTA Bilaterally, On Nasal O2 Gastrointestinal: Yes: Normal Bowel Sounds, Soft Musculoskeletal: Yes: WNL Extremities: Yes: WNL Neurological: Yes: Alert, Oriented Psychiatric: Yes: Alert, Oriented Labs: CBC, BMP 06/20/17 10:30 06/20/17 10:30 INR, PTT INR 1.06 (0.82-1.09) 06/13/17 15:06 Assessment/Plan Problem List - Problems (1) Respiratory distress Code(s): R06.03 - ACUTE RESPIRATORY DISTRESS (2) Pneumonia Code(s): J18.9 - PNEUMONIA, UNSPECIFIED ORGANISM Qualifiers: Pneumonia type: due to unspecified organism Laterality: bilateral Lung location: unspecified part of lung Qualified Code(s): J18.9 - Pneumonia, unspecified organism (3) CAD (coronary artery disease) Code(s): I25.10 - ATHSCL HEART DISEASE OF [place] CORONARY ARTERY W/O ANG PCTRS Qualifiers: Coronary Disease-Associated Artery/Lesion type: [place] coronary artery [place] vs. transplanted heart: [place] heart Associated angina: without angina pectoris (4) Diabetes mellitus type 2, uncontrolled Code(s): E11.65 - TYPE 2 DIABETES MELLITUS WITH HYPERGLYCEMIA (5) History of coronary artery stent placement Code(s): Z95.5 - PRESENCE OF CORONARY ANGIOPLASTY IMPLANT AND GRAFT (6) Hyperlipidemia Code(s): E78.5 - HYPERLIPIDEMIA, UNSPECIFIED (7) Hypertension Code(s): I10 - ESSENTIAL (PRIMARY) HYPERTENSION Qualifiers: Hypertension type: essential hypertension Qualified Code(s): I10 - Essential (primary) hypertension (8) Acute kidney injury Code(s): N17.9 - ACUTE KIDNEY FAILURE, UNSPECIFIED plan stable off of abx doing well incentive isabela rest as per primary team
== END 2017-06-20 13:49 | DRG 291 ==
LOC: JER 13:38 → JERBED 18:05 → J7W 21:49
PROVIDERS: ADMIT Hospitalist; ATTEND Nurse Practitioner Family
DX: I13.0 Hypertensive heart and chronic kidney disease with heart failure and stage 1 through stage 4 chronic kidney disease, or unspecified chronic kidney disease (principal); J18.9 Pneumonia, unspecified organism; I50.33 Acute on chronic diastolic (congestive) heart failure; J44.1 Chronic obstructive pulmonary disease with (acute) exacerbation; N17.9 Acute kidney failure, unspecified; J98.11 Atelectasis; I25.10 Atherosclerotic heart disease of native coronary artery without angina pectoris; E78.5 Hyperlipidemia, unspecified; Z79.4 Long term (current) use of insulin; E11.22 Type 2 diabetes mellitus with diabetic chronic kidney disease; I12.9 Hypertensive chronic kidney disease with stage 1 through stage 4 chronic kidney disease, or unspecified chronic kidney disease; N18.9 Chronic kidney disease, unspecified; H35.30 Unspecified macular degeneration; I27.20 Pulmonary hypertension, unspecified; I34.0 Nonrheumatic mitral (valve) insufficiency
CPT/HCPCS: 36415; 71045-TC-FY; 71250-TC; 80048; 80053; 80061; 81003; 81015; 82803; 82962; 83605; 83721; 83735; 83880; 84484; 85025; 85027; 85610; 85730; 87040; 87086; 87804; 93005; 93010; 93306-TC; 94010; 94640; 94761; 97116-GP; 97161-GP; 99283-25; J0131; J1644